=== PATIENT | male | born 1935 | race Caucasian/White ===

== ENCOUNTER → 2023-01-02 | Outpatient (CLI) | payer MEDICARE, OTHER, SELFPAY ==
[2023-01-02 16:51] LABS: Absolute Lymphocyte Count 1.96 X10^3/uL (0.83-4.51); Basophil# 0.01 X10^3/uL; Basophil% 0.2 % (0-1); Eosinophil# 0.07 X10^3/uL; Eosinophils% 1.1 % (0-5); Hematocrit 37.3 % (40-54); Hemoglobin 11.6 g/dL (13.0-16.5); Lymphocyte # 1.96 X10^3/ul (0.83-4.51); Lymphocyte % 29.9 % (19-41); Mean Corp Hgb Conc 31.1 g/dL (32-36); Mean Corpuscular Hgb 27.4 pg (27.0-32.0); Mean Platelet Vol. 10.2 fl (6.2-12.0); Monocyte# 0.52 X10^3/uL; Monocyte% 7.9 % (0-10); NRBC Flagged by Analyzer 0 % (0-5); Neutrophil # 3.97 X10^3/uL (2.7-7.7); Neutrophil % 60.6 % (47-70); Platelet Count 286 K/mm3 (150-450); RBC Distribution Width CV 16.2 % (11.6-14.6); RBC Distribution Width SD 52.2 fl (35.1-43.9); Red Blood Count 4.24 M/mm3 (4.6-6.2); White Blood Count 6.6 K/mm3 (4.4-11.0)
[2023-01-02 17:43] LABS: ALB/GLOB Ratio 0.9 RATIO (0.9-2.4); AST(SGOT) 18 U/L (15-37); Alanine Aminotransfer ALT/SGPT 32 U/L (16-61); Albumin, Serum 3.4 g/dL (3.2-5.0); Alkaline Phosphatase 98 U/L (45-117); Anion Gap 8 (5-15); BUN 23 mg/dL (7-18); Calcium,Total 8.4 mg/dL (8.5-10.1); Chloride 109 mmol/L (98-107); EST Glomerular Filtration Rate 75 mL/min (>60); Est Glom Filt Rate - Afr Amer 91 mL/min (>60); Globulin 3.6 g/dL (2.2-4.2); Glucose 111 mg/dL (74-106); Potassium 3.7 mmol/L (3.5-5.1); Sodium Level 143 mmol/L (136-145)
[2023-01-02 18:38] LABS: Hepatitis C Antibody Non-Reactive (Nonreactive)
== END | disposition home or self-care (01) ==
LOC: POLAB3 16:09
PROVIDERS: Visit Provider Family Medicine Geriatric Medicine
DX: E78.5 Hyperlipidemia, unspecified (principal); E55.9 Vitamin D deficiency, unspecified; Z13.89 Encounter for screening for other disorder
CPT/HCPCS: 36415; 80053; 82306; 84443; 85025; 86803; 87086; 87088; 87186

== ENCOUNTER → 2023-01-06 | Outpatient (CLI) | payer MEDICARE, SELFPAY ==
--- NOTE | 2023-01-06 12:15 | RAD_ITS ---
STUDY: X-RAY - ABDOMEN/PELVIS REASON FOR EXAM: Male, 87 years old. Left lower quadrant abdominal pain. TECHNIQUE: AP supine and upright views of the abdomen and pelvis. COMPARISON: None. FINDINGS: There is an abundance of fecal material throughout the colon. Calcified gallstones. Evidence of prior right inguinal hernia repair. There are degenerative changes of the visualized lumbar spine. RAD/Abd Inc Decub and/or Erect IMPRESSION: Large amount of fecal material is seen in the colon. Calcified gallstones are seen in the right upper quadrant. Electronically Signed: Sav Morillo MD at 15:14 EST ,
== END | disposition home or self-care (01) ==
PROVIDERS: PCP Family Medicine Geriatric Medicine; Visit Provider Family Medicine Geriatric Medicine
DX: R10.9 Unspecified abdominal pain (principal)
CPT/HCPCS: 74019

== ENCOUNTER → 2023-01-16 | Outpatient (CLI) | payer MEDICARE, SELFPAY ==
--- NOTE | 2023-01-16 07:45 | US_ITS ---
STUDY: ABDOMINAL ULTRASOUND - RIGHT UPPER QUADRANT REASON FOR VISIT: Male, 87 years old ABD PAIN TECHNIQUE: Ultrasound evaluation of the right upper quadrant was performed with real-time and static bolanos-scale imaging. TECHNICAL QUALITY: Adequate. COMPARISON: None. FINDINGS: Liver: The liver measures 18.8 cm. There is diffusely increased echogenicity of the liver. The bile ducts are within normal limits. There is hepatic color flow. The direction of portal flow is hepatopetal. There is no demonstrated mass lesion. Gallbladder: Normal distended gallbladder. The gallbladder wall measures approximately (3.2 mm. There is a mildly equivocal positive sonographic Portillo''s sign. There is no pericholecystic fluid. There are multiple gallstones. Common Bile Duct (C.B.D.): The common bile duct measures 5.5 mm. Pancreas: Normal size of the head, body and tail of the pancreas. There is diffusely increased echogenicity of the pancreas. There is no demonstrated pancreatic mass or cyst. Right Kidney: Normal size of the right kidney. The right kidney measures 10.8 x 6.1 x 6.3 cm. Normal renal cortex. The right cortex measures 1.4 cm. There is no demonstrated renal mass or cyst. There is no right hydronephrosis. US/Abdomen Limited IMPRESSION: Enlarged fatty infiltrated liver.. Mildly thick-walled gallbladder with cholelithiasis and equivocally positive Portillo''s possibly representing acute cholecystitis. HIDA scan would be helpful for further evaluation sign. Electronically Signed: Donnie Dyson MD at 22:58 EST ,
== END | disposition home or self-care (01) ==
PROVIDERS: PCP Family Medicine Geriatric Medicine; Visit Provider Family Medicine Geriatric Medicine
DX: R10.9 Unspecified abdominal pain (principal)
CPT/HCPCS: 76705

== ENCOUNTER 2023-06-29 11:11 | Emergency (ER) | payer MEDICARE, SELFPAY ==
[2023-06-29 11:13] VITALS: BP 182/100; PULSE 87; RESP 20; TEMP 36.6; O2SAT 94; BMI 31.4
[2023-06-29 11:16] VITALS: BMI 31.4
--- NOTE | 2023-06-29 11:16 | CT_ITS ---
HISTORY: Does not feel right, markedly elevated blood press. TECHNIQUE: Multiple axial images were obtained of the head without intravenous contrast. A radiation dose optimization technique was used for this scan. 268 images. COMPARISON: None. FINDINGS: BRAIN PARENCHYMA: Multiple foci and zones of low attenuation in the bilateral cerebral white matter compatible with chronic small vessel ischemic gliosis. No acute intra-axial hemorrhage identified. CSF SPACES: Generalized volume loss. No midline shift or other significant mass effect. No acute extra-axial hemorrhage seen. OTHER: Intact calvarium. No significant air fluid levels in the paranasal sinuses or mastoid air cells. Bilateral lens resections. CT/Brain/Head without Contrast IMPRESSION: No acute intracranial process identified. Chronic involutional and white matter changes. Electronically Signed: Pau Mccormack MD at 12:15 EDT ,
--- NOTE | 2023-06-29 11:29 | EX.ED.DYSGE1 ---
HPI History of Present Illness Chief Complaint: Neuro S/Sx Detail of Chief Complaint: Does not feel right. He is unable to be more specific. Informant: patient and family (Daughter brought him to the emergency department. She was concerned because his blood pressure was elevated.) Onset/Context/Timing Onset: Hours Context: Sudden Onset Timing: Continuous Quality: Sense of unwellness, elevated blood pressure and dizziness. Location: In the restroom Current Severity: Gone Maximum Severity: Moderate Worsened by: Nothing Relieved by: Nothing Associated Symptoms Associated Symptoms: None Narrative Narrative: Patient is a 87-year-old male with history of coronary disease, hyperlipidemia, essential hypertension, hypothyroidism, paroxysmal atrial fibrillation and pacemaker who presents because he does not feel well. This started 1 hour prior to presentation. He apparently was standing. He also had difficulty answering question because he was in the restroom and states he does not know. When asked if he had a headache he stated not now. Daughter states he never voiced he had a headache. She feels that his voice is not as pronounced. His voice is soft and not forceful. He denies double vision, blurred vision or loss of vision. He denies ringing's ears or decreased hearing. He does have hearing aids. He denies rhinorrhea, congestion or postnasal drainage. He denies sore throat. He denies trouble with speech or swallowing. He denies cardiac or respiratory symptoms. He denies nausea, vomit or diarrhea. Denies black or maroon stool. He denies dysuria, frequency, urgency or hematuria. He denies paresthesia or anesthesia upper or lower extremity. He denies weakness in his arms or legs but reports generalized weakness. He states his blood pressure is normally is 12/17/1928 systolic. He denies back pain. Prior similar symptoms: No Recent Illness/Hospitalization: No PFSH PFS Medical History Atherosclerosis of coronary artery of [place] heart without angina pectoris Depression Essential hypertension Gastric ulcer Glaucoma Hyperlipidemia Hypothyroidism Insomnia MGUS (monoclonal gammopathy of unknown significance) Parkinson's disease Paroxysmal atrial fibrillation Polyneuropathy Vitamin D deficiency Home Medications brimonidine 0.15 % eye drops 1 drp ophthalmic (eye) TID 03/07/23 [History Last Taken Unknown] carbidopa 25 mg-levodopa 100 mg tablet (Sinemet) 1 tab PO TID 03/07/23 [History Last Taken Unknown] latanoprost 0.005 % eye drops 1 drp ophthalmic (eye) DAILY 03/07/23 [History Last Taken Unknown] mirtazapine 7.5 mg tablet 7.5 mg PO QHS 03/07/23 [History Last Taken Unknown] pantoprazole 40 mg tablet,delayed release 40 mg PO BID 03/07/23 [History Last Taken Unknown] levothyroxine 88 mcg tablet 88 mcg PO DAILY 04/05/23 [History Last Taken Unknown] sotalol 80 mg tablet 80 mg PO BID #180 tabs 06/07/23 [Rx Last Taken Unknown] rivaroxaban 20 mg tablet (Xarelto) 20 mg PO QPM #30 tabs 06/14/23 [Rx Last Taken Unknown] Allergy/AdvReac Type Severity Reaction Status Date / Time No Known Allergies Allergy Verified 06/29/23 11:17 Family History Mother Cervical cancer Brother , 50 Aortic dissection Surgical History History of bilateral cataract extraction History of coronary artery stent placement (~2008) History of hernia repair History of transurethral resection of prostate Presence of permanent cardiac pacemaker (03/31/16) Skin cancer Social History Smoking Status: Former smoker how long ago did patient quit smokin years ago alcohol intake: never substance use type: does not use caffeine: No ROS ROS ED Constitutional Constitutional ED: Denies chills, fever(s), subjective, sweats or weight loss Eyes Eyes: Denies blurry vision, change in vision or diplopia ENT ENT ED: Denies ear pain, rhinorrhea or sore throat Cardiovascular Cardiovascular: Denies chest pain, orthopnea, palpitations, paroxysmal nocturnal dyspnea or racing heartbeat Respiratory/Chest Respiratory/Chest: Denies cough, dyspnea, dyspnea on exertion, orthopnea or paroxysmal nocturnal dyspnea Gastrointestinal Gastrointestinal: Denies abdominal pain, nausea or vomiting Genitourinary Genitourinary ED: Denies dysuria, hematuria or urinary frequency Musculoskeletal Musculoskeletal: Denies arthralgias, back pain, myalgias or neck pain Integumentary Denies abscess, Abrasions or rash Neurologic Neurologic: Reports weakness; Denies headache(s) or paresthesias Psychiatric Psychiatric: Denies anxiety Hematologic/Lymphatic Hematologic/Lymphatic: Reports systems reviewed and no addt'l complaints, except as documented and other Details: Patient is on Xarelto for atrial fibrillation. EXAM Physical Exam Const Vital Signs: 06/29/23 11:13 06/29/23 13:06 06/29/23 13:44 Temperature 97.8 F Temperature Source Temporal Pulse Rate 87 70 70 Respiratory Rate 20 H 17 Blood Pressure 182/100 H 188/80 H 150/82 H Blood Pressure Mean 127 116 104 Pulse Ox 94 97 Oxygen Delivery Method Room Air Room Air Positive well nourished and well developed General Appearance ED: well developed and NAD; Negative for cyanotic, diaphoretic or pallor HEENT Reports moist mucous membranes HEENT Narrative: Ears are normal. Hearing aids noted. Nares patent. Posterior pharynx out erythema or exudate. Neck is supple. Eyes PERRL and EOMs intact bilaterally Eyes Narrative: Status post cataract surgery. General Eye ED: Negative for pale conjunctiva or scleral icterus Neck no lymphadenopathy, supple and no JVD Chest Wall inspection of chest normal and palpation of chest normal Resp normal respiratory effort and clear to auscultation bilaterally Cardio regular rate, regular rhythm, S1 normal heart sound and S2 normal heart sound GI normal to inspection, nondistended, normoactive bowel sounds, non-tender, non-distended and no masses; Negative for hepatosplenomegaly Back/Spine no CVA tenderness Cervical Spine: Negative for cervical spine tenderness Thoracic Spine / Upper Back: Negative for thoracic spinal tenderness Lumbar Spine / Lower Back: Negative for lumbar spinal tenderness Extremity normal to inspection General Extremety ED: Yes edema; Negative for tenderness General Extremity: edema Neuro oriented x3, CN's II-XII intact bilaterally and no sensory deficits noted Sensorium / Orientation: alert Motor Exam: strength 5/5 throughout Psych Psych Narrative: Slow psychomotor skills. Mood & Affect: depressed Skin no rashes or lesions noted, no wounds and skin turgor normal General Skin Exam: Negative for jaundice or pallor MDM MDM MDM Narrative Medical decision making narrative: With very vague symptoms. Because he may have had a headache with elevated blood pressure obtain a CAT scan of the head to look for intracranial bleed. His neuro exam is nonfocal. NIH is 0 patient does have history of hypothyroidism 1 would not expect his symptoms to start abruptly. CBC was obtained to assess H&H and rule out anemia. BMP to assess electrolytes and renal function. Will monitor blood pressure. History & Record Review Additional record(s) reviewed:: Prior ED visit and Prior labs Lab Data Attestation: I reviewed the patient's lab results. Lab results narrative: CBC is unremarkable and unchanged from baseline. Basic metabolic panel is unremarkable and essentially impaired Labs: Laboratory Results - last 24 hr 06/29/23 06/29/23 11:14 11:20 WBC 5.9 RBC 4.98 Hgb 13.6 Hct 42.7 MCV 85.7 MCH 27.3 MCHC 31.9 L RDW Std Deviation 51.1 H RDW Coeff of Jefry 16.4 H Plt Count 244 MPV 10.5 Immature Gran % (Auto) 0.300 Neut % (Auto) 64.5 Lymph % (Auto) 28.1 [place] % (Auto) 5.6 Eos % (Auto) 1.0 Baso % (Auto) 0.5 Absolute Neuts (auto) 3.8 Absolute Lymphs (auto) 1.66 Nucleated RBC % 0 Sodium 139 Potassium 3.7 Chloride 109 H Carbon Dioxide 26.0 Anion Gap 4 L BUN 16 Creatinine 1.05 Estim Creat Clear Calc 55.43 Est GFR (MDRD) Af Amer 86 Est GFR (MDRD) Non-Af 71 BUN/Creatinine Ratio 15.2 Glucose 108 H Calcium 8.5 POC Glucose 117 H Radiography Diagnostic Testing: Clinical Impression(s) from Imaging Studies Brain CT 06/29/23 11:16 IMPRESSION: No acute intracranial process identified. Chronic involutional and white matter changes. Electronically Signed: Pau Mccormack MD at 12:15 EDT , Treatment and Re-Evaluation :: Patient was reassessed at 1346. Patient's blood pressure has improved. He states his symptoms have improved. Patient and daughter were told the cause of this is uncertain. He does feel better but still feels slightly weak . Discharge Plan Triage Chief Complaint: Neuro S/Sx ED Provider: Richard Moran Dx/Rx/DC Orders Clinical Impression: Accelerated essential hypertension, Hyperlipidemia, Atherosclerosis of coronary artery of [place] heart without angina pectoris, Generalized weakness, Anticoagulant long-term use Instructions: ED High Blood Pressure Hypertension Prescriptions: No Action brimonidine 0.15 % drops 1 drp ophthalmic (eye) TID Rx Instructions: administer approximately 8 hours apart latanoprost 0.005 % drops 1 drp ophthalmic (eye) DAILY carbidopa-levodopa [Sinemet] 25-100 mg tablet 1 tab PO TID mirtazapine 7.5 mg tablet 7.5 mg PO QHS pantoprazole 40 mg tablet,delayed release (DR/EC) 40 mg PO BID levothyroxine 88 mcg tablet 88 mcg PO DAILY Patient Comments: take 1 tablet by mouth once daily sotalol 80 mg tablet 80 mg PO BID Qty: 180 3RF Xarelto 20 mg tablet 20 mg PO QPM Qty: 30 11RF Rx Instructions: must administer with evening meal Primary Care Provider: William Cespedes Chi Referrals: William Cespedes Chi, MD [Primary Care Provider] - 1-2 Weeks Activity Restrictions/Additional Instructions: Contact Dr. Cespedes's office to have your blood pressure reassessed within the next 1 to 2 weeks. Disposition Disposition: Home, Self Care
[2023-06-29 11:33] LABS: Bedside Glucose 117 mg/dL (74-106)
[2023-06-29 11:50] LABS: Absolute Lymphocyte Count 1.66 X10^3/uL (0.83-4.51); Absolute Neutrophil Count 3.8 X10^3/uL (2.0-7.7); Basophil# 0.03 X10^3/uL; Basophil% 0.5 % (0-1); Eosinophil# 0.06 X10^3/uL; Hematocrit 42.7 % (40-54); Hemoglobin 13.6 g/dL (13.0-16.5); Lymphocyte # 1.66 X10^3/ul (0.83-4.51); Lymphocyte % 28.1 % (19-41); Mean Corp Hgb Conc 31.9 g/dL (32-36); Mean Corpuscular Hgb 27.3 pg (27.0-32.0); Mean Corpuscular Volume 85.7 fL (80-94); Mean Platelet Vol. 10.5 fl (6.2-12.0); Monocyte# 0.33 X10^3/uL; Monocyte% 5.6 % (0-10); NRBC Flagged by Analyzer 0 % (0-5); Neutrophil % 64.5 % (47-70); Platelet Count 244 K/mm3 (150-450); RBC Distribution Width CV 16.4 % (11.6-14.6); RBC Distribution Width SD 51.1 fl (35.1-43.9); Red Blood Count 4.98 M/mm3 (4.6-6.2); White Blood Count 5.9 K/mm3 (4.4-11.0)
[2023-06-29 11:59] LABS: Anion Gap 4 (5-15); BUN 16 mg/dL (7-18); BUN/Creat Ratio 15.2 RATIO (10-20); Calcium,Total 8.5 mg/dL (8.5-10.1); Chloride 109 mmol/L (98-107); Creatinine, Serum 1.05 mg/dL (0.70-1.30); EST Glomerular Filtration Rate 71 mL/min (>60); Est Glom Filt Rate - Afr Amer 86 mL/min (>60); Estimated Creatinine Clearance 55.43 ml/min; Glucose 108 mg/dL (74-106); Potassium 3.7 mmol/L (3.5-5.1); Sodium Level 139 mmol/L (136-145)
[2023-06-29 13:06] VITALS: BP 188/80; PULSE 70; RESP 17; O2SAT 97
--- NOTE | 2023-06-29 13:32 | CM.ED ---
Social Work SW met with patient and patient's daughter and introduced self and role as [facility] SW. Patient agreeable to speak to SW with his daughter present. SW inquired about AD documents. Patient reports having POA documents and possibly his LW but unable to recall if it is health care POA or general. SW encouraged patient to review and provide a copy to be added to his chart. SW also reviewed options for assistance if he does not have those documents completed. Patient voiced understanding and has no other needs at this time. SW remains available if needs arise. Cinthya Treadwell [employer]ING [employer]ING [employer], [place]
[2023-06-29 13:44] VITALS: BP 150/82; PULSE 70
[2023-06-29 14:26] VITALS: BP 153/89
== END 2023-06-29 14:27 | disposition home or self-care (01) ==
PROVIDERS: Emergency Provider Emergency Medicine; PCP Family Medicine Geriatric Medicine; Visit Provider Emergency Medicine
DX: I10 Essential (primary) hypertension (principal); G20 Parkinson's disease; I48.0 Paroxysmal atrial fibrillation; I25.10 Atherosclerotic heart disease of native coronary artery without angina pectoris; E78.5 Hyperlipidemia, unspecified; R53.1 Weakness; E03.9 Hypothyroidism, unspecified; Z79.01 Long term (current) use of anticoagulants; Z79.890 Hormone replacement therapy; Z79.899 Other long term (current) drug therapy; Z95.0 Presence of cardiac pacemaker; Z87.891 Personal history of nicotine dependence
CPT/HCPCS: 70450; 80048; 82962; 85025; 99283

== ENCOUNTER → 2023-06-30 | Outpatient (CLI) | payer MEDICARE, SELFPAY ==
[2023-06-30 12:42] LABS: Absolute Lymphocyte Count 1.39 X10^3/uL (0.83-4.51); Absolute Neutrophil Count 3.5 X10^3/uL (2.0-7.7); Basophil# 0.03 X10^3/uL; Basophil% 0.6 % (0-1); Eosinophil# 0.07 X10^3/uL; Eosinophils% 1.3 % (0-5); Hematocrit 41.2 % (40-54); Hemoglobin 13.6 g/dL (13.0-16.5); Lymphocyte # 1.39 X10^3/ul (0.83-4.51); Lymphocyte % 26.2 % (19-41); Mean Corpuscular Hgb 27.8 pg (27.0-32.0); Mean Corpuscular Volume 84.1 fL (80-94); Mean Platelet Vol. 10.2 fl (6.2-12.0); Monocyte# 0.34 X10^3/uL; Monocyte% 6.4 % (0-10); NRBC Flagged by Analyzer 0 % (0-5); Neutrophil # 3.47 X10^3/uL (2.7-7.7); Neutrophil % 65.3 % (47-70); Platelet Count 225 K/mm3 (150-450); RBC Distribution Width CV 16.2 % (11.6-14.6); RBC Distribution Width SD 50.3 fl (35.1-43.9); White Blood Count 5.3 K/mm3 (4.4-11.0)
[2023-06-30 13:03] LABS: ALB/GLOB Ratio 0.9 RATIO (0.9-2.4); AST(SGOT) 19 U/L (15-37); Alanine Aminotransfer ALT/SGPT 11 U/L (16-61); Albumin, Serum 3.2 g/dL (3.2-5.0); Alkaline Phosphatase 63 U/L (45-117); Anion Gap 5 (5-15); BUN 16 mg/dL (7-18); BUN/Creat Ratio 15.2 RATIO (10-20); Calcium,Total 8.3 mg/dL (8.5-10.1); Chloride 108 mmol/L (98-107); Creatinine, Serum 1.05 mg/dL (0.70-1.30); EST Glomerular Filtration Rate 71 mL/min (>60); Est Glom Filt Rate - Afr Amer 86 mL/min (>60); Globulin 3.5 g/dL (2.2-4.2); Glucose 133 mg/dL (74-106); Potassium 3.6 mmol/L (3.5-5.1); Protein, Total 6.7 g/dL (6.4-8.2); Sodium Level 141 mmol/L (136-145); Thyroid Stim Hormone (TSH) 2.09 uIU/mL (0.358-3.74)
[2023-06-30 13:11] LABS: Vitamin D,25 Hydroxy 22.2 ng/mL
== END | disposition home or self-care (01) ==
PROVIDERS: PCP Family Medicine Geriatric Medicine; Visit Provider Family Medicine Geriatric Medicine
DX: I10 Essential (primary) hypertension (principal); E55.9 Vitamin D deficiency, unspecified
CPT/HCPCS: 36415; 80053; 82306; 84443; 85025

== ENCOUNTER → 2023-10-12 | Outpatient (CLI) | payer MEDICARE, SELFPAY ==
--- NOTE | 2023-10-12 11:10 | RAD_ITS ---
STUDY: X-RAY - LUMBAR SPINE REASON FOR EXAM: Male, 87 years old. LOW BACK PAIN TECHNIQUE: 4 view(s) of the lumbar spine were obtained. COMPARISON: None FINDINGS: Normal lumbar lordosis. Moderate dextroconvex scoliosis. There is a normal alignment of the vertebrae. Multiple gallstones. There is multilevel endplate spondylosis of the lumbar vertebrae. Normal disc space heights. The soft tissue structures are unremarkable. RAD/L/S Spine Min 4 Views IMPRESSION: Moderate dextroconvex scoliosis and spondylosis. Cholelithiasis. Electronically Signed: Herbie Foley MD at 0:07 EST ,
== END | disposition home or self-care (01) ==
LOC: RAD 11:08
PROVIDERS: PCP Family Medicine Geriatric Medicine; Referring Provider Family Medicine Geriatric Medicine; Visit Provider Family Medicine Geriatric Medicine
DX: M54.50 Low back pain, unspecified (principal)
CPT/HCPCS: 72110

== ENCOUNTER → 2023-10-26 | Outpatient (CLI) | payer MEDICARE, SELFPAY ==
--- NOTE | 2023-10-26 15:51 | RAD_ITS ---
INDICATION: R HIP PAIN EXAMINATION/TECHNIQUE: X-RAY - XR Hip Unilateral with Pelvis when performed; 2-3 Views COMPARISON: FINDINGS: No acute fracture or dislocation. No destructive bone changes. Joint spaces are well-maintained. Normal alignment. Soft tissues are unremarkable. No radiopaque foreign body or soft tissue gas. RAD/HIP, UNI W/ Pelvis 2-3 Views IMPRESSION: No evidence of displaced pelvic or hip fracture. Electronically Signed: Philomena Darby MD at 23:54 EST Reading Location ID and State: [id number] / Tel , Service support ,
[2023-10-26 16:17] LABS: Absolute Lymphocyte Count 1.43 X10^3/uL (0.83-4.51); Absolute Neutrophil Count 7.2 X10^3/uL (2.0-7.7); Basophil# 0.06 X10^3/uL; Basophil% 0.6 % (0-1); Eosinophil# 0.04 X10^3/uL; Eosinophils% 0.4 % (0-5); Hematocrit 39.7 % (40-54); Hemoglobin 12.5 g/dL (13.0-16.5); Lymphocyte # 1.43 X10^3/ul (0.83-4.51); Lymphocyte % 14.8 % (19-41); Mean Corp Hgb Conc 31.5 g/dL (32-36); Mean Corpuscular Hgb 28.3 pg (27.0-32.0); Mean Corpuscular Volume 89.8 fL (80-94); Mean Platelet Vol. 10.3 fl (6.2-12.0); Monocyte% 8.3 % (0-10); NRBC Flagged by Analyzer 0 % (0-5); Neutrophil # 7.16 X10^3/uL (2.7-7.7); Neutrophil % 74.4 % (47-70); Platelet Count 231 K/mm3 (150-450); RBC Distribution Width CV 15.4 % (11.6-14.6); Red Blood Count 4.42 M/mm3 (4.6-6.2); White Blood Count 9.6 K/mm3 (4.4-11.0)
[2023-10-26 18:10] LABS: ALB/GLOB Ratio 0.9 RATIO (0.9-2.4); AST(SGOT) 20 U/L (15-37); Alanine Aminotransfer ALT/SGPT 9 U/L (16-61); Albumin, Serum 3.4 g/dL (3.2-5.0); Alkaline Phosphatase 86 U/L (45-117); Anion Gap 6 (5-15); BUN 19 mg/dL (7-18); BUN/Creat Ratio 19.4 RATIO (10-20); Calcium,Total 8.3 mg/dL (8.5-10.1); Chloride 101 mmol/L (98-107); Creatinine, Serum 0.98 mg/dL (0.70-1.30); EST Glomerular Filtration Rate 77 mL/min (>60); Est Glom Filt Rate - Afr Amer 93 mL/min (>60); Globulin 3.7 g/dL (2.2-4.2); Glucose 109 mg/dL (74-106); Potassium 3.8 mmol/L (3.5-5.1); Protein, Total 7.1 g/dL (6.4-8.2); Sodium Level 137 mmol/L (136-145)
== END | disposition home or self-care (01) ==
PROVIDERS: PCP Family Medicine Geriatric Medicine; Referring Provider Family Medicine Geriatric Medicine; Visit Provider Family Medicine Geriatric Medicine
DX: M25.551 Pain in right hip (principal); I10 Essential (primary) hypertension
CPT/HCPCS: 36415; 73502; 80053; 84443; 85025

== ENCOUNTER 2023-10-31 15:57 | Inpatient (IN) | payer MEDICARE, SELFPAY ==
[2023-10-31] VITALS (9 sets, daily range): BP systolic 154–188; BP diastolic 74–96; PULSE 70–86; RESP 16–30; TEMP 36.7–36.8; O2SAT 90–98; BMI 29.5
--- NOTE | 2023-10-31 16:53 | EX.ED.DYSGE1 ---
HPI History of Present Illness Chief Complaint: General Illness Narrative Narrative: 87-year-old male presenting with nausea and decreased p.o. intake x2 to 3 days. Patient states he feels only nausea. Does not abdominal pain. He states he is not having diarrhea. He has not actually vomited. No fever, chills, myalgias. Patient states that he started to have a cough today and feels generally weak. 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 He is referred to pain management for this tomorrow. Patient states he feels weak because he has not eaten for a few days. [facility] Medical History Atherosclerosis of coronary artery of [place] heart without angina pectoris Depression Essential hypertension Gastric ulcer Glaucoma Hyperlipidemia Hypothyroidism Insomnia MGUS (monoclonal gammopathy of unknown significance) Parkinson's disease Paroxysmal atrial fibrillation Polyneuropathy Vitamin D deficiency Home Medications brimonidine 0.15 % eye drops 1 drp ophthalmic (eye) TID 03/07/23 [History Last Taken 10/31/23] carbidopa 25 mg-levodopa 100 mg tablet (Sinemet) 1 tab PO TID 03/07/23 [History Last Taken 10/31/23] latanoprost 0.005 % eye drops 1 drp ophthalmic (eye) DAILY 03/07/23 [History Last Taken 10/30/23] mirtazapine 7.5 mg tablet 15 mg PO QHS 03/07/23 [History Last Taken 10/30/23] pantoprazole 40 mg tablet,delayed release 40 mg PO BID 03/07/23 [History Last Taken 10/31/23] levothyroxine 88 mcg tablet 88 mcg PO DAILY 04/05/23 [History Last Taken 10/31/23] sotalol 80 mg tablet 80 mg PO BID #180 tabs 06/07/23 [Rx Last Taken 10/31/23] rivaroxaban 20 mg tablet (Xarelto) 20 mg PO QPM #30 tabs 06/14/23 [Rx Last Taken 10/30/23] fluoxetine 10 mg tablet 10 mg PO DAILY 10/31/23 [History Last Taken 10/31/23] lisinopril 20 mg tablet 40 mg PO QHS 10/31/23 [History Last Taken 10/30/23] Allergy/AdvReac Type Severity Reaction Status Date / Time No Known Allergies Allergy Verified 10/31/23 15:58 Family History Mother Cervical cancer Brother , 50 Aortic dissection Surgical History History of bilateral cataract extraction History of coronary artery stent placement (~2008) History of hernia repair History of transurethral resection of prostate Presence of permanent cardiac pacemaker (03/31/16) Skin cancer Social History Smoking Status: Former smoker how long ago did patient quit smokin years ago alcohol intake: never substance use type: does not use caffeine: No ROS ROS ED Constitutional Constitutional ED: Denies chills, fever(s) or sweats Eyes Eyes: Denies blurry vision or change in vision ENT ENT ED: Denies ear pain or sore throat Cardiovascular Cardiovascular: Denies chest pain, palpitations or racing heartbeat Respiratory/Chest Respiratory/Chest: Reports cough; Denies dyspnea or sputum Gastrointestinal Gastrointestinal: Reports nausea; Denies abdominal pain, constipation, diarrhea or vomiting Genitourinary Genitourinary ED: Denies dysuria, hematuria or urinary frequency Musculoskeletal Musculoskeletal: Denies arthralgias, myalgias or neck pain Integumentary Denies abscess, Abrasions or rash Neurologic Neurologic: Denies headache(s), paresthesias or weakness Psychiatric Psychiatric: Denies anxiety, depression, suicidal ideation or suicidal thoughts Endocrine Endocrinology: Denies polydipsia or polyuria EXAM Physical Exam Const Vital Signs: 10/31/23 15:58 10/31/23 16:28 10/31/23 18:00 Temperature 98.1 F Temperature Source Temporal Pulse Rate 86 85 Respiratory Rate 18 16 Respiratory Effort Short of Breath Respiratory Pattern Tachypnea Blood Pressure 171/74 H 188/96 H Blood Pressure Mean 106 126 Pulse Ox 90 98 Oxygen Delivery Method Room Air Nasal Cannula Oxygen Flow Rate (L/min) 2 10/31/23 18:00 10/31/23 19:00 Temperature 98.2 F Temperature Source Oral Pulse Rate 85 85 Respiratory Rate 16 16 Respiratory Effort Respiratory Pattern Blood Pressure 188/96 H 188/96 H Blood Pressure Mean 126 126 Pulse Ox 98 98 Oxygen Delivery Method Nasal Cannula Oxygen Flow Rate (L/min) 2 Positive well nourished General Appearance ED: NAD HEENT Reports moist mucous membranes Eyes PERRL and EOMs intact bilaterally General Eye ED: Negative for pale conjunctiva Neck no lymphadenopathy Chest Wall inspection of chest normal Resp normal respiratory effort Auscultation: diminished lung sounds bilateral lower Cardio regular rate and regular rhythm GI normal to inspection, nondistended, normoactive bowel sounds Neuro oriented x3 and CN's II-XII intact bilaterally Sensorium / Orientation: alert Motor Exam: strength 5/5 throughout Psych mental status grossly normal Skin no rashes or lesions noted and no wounds MDM MDM MDM Narrative Medical decision making narrative: Patient presenting with generalized weakness. Differential includes ACS, CHF, pneumonia, dehydration, electrolyte abnormalities, COVID, influenza. EKG obtained to assess for ischemia and dysrhythmia. High-sensitivity troponin assess for cardiac ischemia. CBC to assess white blood cell count, hemoglobin, platelets. BMP to assess renal function, electrolytes, glucose. Urinalysis to assess for UTI. COVID influenza test will be obtained as well. Patient given IV fluids and Zofran. Chest x-ray to rule out pneumonia. CBC shows normal white blood cell count 8.1. Hemoglobin 13.1. Platelets are 186. Renal function and electrolytes within normal limits. LFTs are normal. BNP slightly elevated at 205.2. Lipase normal at 30. Chest x-ray my interpretation shows no acute process. The radiologist interprets this and agrees. COVID and influenza were negative. Patient ambulated on pulse ox and dropped to 86% on room air. Patient 90% sitting in bed without oxygen. He is placed on 2 L nasal cannula maintaining sats of 93%. Discussed with hospitalist for admission who recommends a viral respiratory panel which is sent. Obtained a CT chest without contrast which shows concern for right lower lobe infiltrate and nonspecific upper lobe reticular nodular densities. There is also left lower lobe infiltrate versus CHF. Patient will be started on antibiotics before going to medical floor. Patient discussed with hospice for admission. Impression: 1. Community-acquired pneumonia 2. Hypoxic respiratory failure 3. Nausea Lab Data Labs: Laboratory Results - last 24 hr 10/31/23 17:20 WBC 8.1 RBC 4.57 L Hgb 13.1 Hct 41.0 MCV 89.7 MCH 28.7 MCHC 32.0 RDW Std Deviation 49.6 H RDW Coeff of Jefry 15.2 H Plt Count 186 MPV 10.6 Immature Gran % (Auto) 3.300 H Neut % (Auto) 68.8 Lymph % (Auto) 18.1 L [place] % (Auto) 8.8 Eos % (Auto) 0.4 Baso % (Auto) 0.6 Absolute Neuts (auto) 5.6 Absolute Lymphs (auto) 1.46 Nucleated RBC % 0 Sodium 136 Potassium 3.5 Chloride 102 Carbon Dioxide 29.0 Anion Gap 5 BUN 15 Creatinine 0.98 Est GFR (MDRD) Af Amer 93 Est GFR (MDRD) Non-Af 77 BUN/Creatinine Ratio 15.3 Glucose 101 Calcium 8.4 L Total Bilirubin 0.80 AST 18 ALT < 6 L Alkaline Phosphatase 86 Troponin I High Sens 19 B-Natriuretic Peptide 205.2 H Total Protein 6.7 Albumin 2.9 L Globulin 3.8 Albumin/Globulin Ratio 0.8 L Lipase 30 Radiography Diagnostic Testing: Clinical Impression(s) from Imaging Studies Chest X-Ray 10/31/23 17:30 IMPRESSION: Diminished inspiratory effort and mild bibasilar atelectasis Electronically Signed: Donnie Dyson MD at 17:44 EST , Chest CT 10/31/23 19:06 IMPRESSION: Nonspecific reticulonodular interstitial thickening more pronounced in the upper lobes. Right lower lobe atelectasis or infiltrate. Small left pleural effusion and left lower lobe atelectasis or infiltrate. Electronically Signed: Donnie Dyson MD at 20:37 EST , Discharge Plan Disposition Disposition: Acute Care Hospital [facility] Discharge Date/Time: 10/31/23 20:07
--- NOTE | 2023-10-31 16:54 | NURSING ---
NO OLD EKGS
[2023-10-31] MEDS: 0.9% Normal Saline (1000mL) 1,000 ML 1000 ML IV (17:18)
[2023-10-31] MEDS: Ondansetron 4 MG/2 ML Vial IV (17:19)
--- NOTE | 2023-10-31 17:30 | RAD_ITS ---
STUDY: X-RAY CHEST REASON FOR EXAM: Male, 87 years old. cough TECHNIQUE: AP portable COMPARISON: None. FINDINGS: There is diminished inspiratory effort and mild bibasilar atelectasis or infiltrate.. There is no demonstrated pleural abnormality. Pacer noted on the left with electrodes in satisfactory position Normal size heart. Normal mediastinum and zeny. Normal visualized pulmonary arteries. Normal visualized aortic arch and descending thoracic aorta. Normal visualized thoracic spine. Normal visualized ribs, clavicles, and shoulders. Multiple calcified gallstones are noted within the right upper quadrant of the abdomen.. RAD/Chest 1 View (Portable) IMPRESSION: Diminished inspiratory effort and mild bibasilar atelectasis Electronically Signed: Donnie Dyson MD at 17:44 EST ,
[2023-10-31 17:46] LABS: Absolute Lymphocyte Count 1.46 X10^3/uL (0.83-4.51); Absolute Neutrophil Count 5.6 X10^3/uL (2.0-7.7); Basophil# 0.05 X10^3/uL; Basophil% 0.6 % (0-1); Eosinophil# 0.03 X10^3/uL; Eosinophils% 0.4 % (0-5); Hemoglobin 13.1 g/dL (13.0-16.5); Lymphocyte # 1.46 X10^3/ul (0.83-4.51); Lymphocyte % 18.1 % (19-41); Mean Corpuscular Hgb 28.7 pg (27.0-32.0); Mean Corpuscular Volume 89.7 fL (80-94); Mean Platelet Vol. 10.6 fl (6.2-12.0); Monocyte# 0.71 X10^3/uL; Monocyte% 8.8 % (0-10); NRBC Flagged by Analyzer 0 % (0-5); Neutrophil # 5.56 X10^3/uL (2.7-7.7); Neutrophil % 68.8 % (47-70); Platelet Count 186 K/mm3 (150-450); RBC Distribution Width CV 15.2 % (11.6-14.6); RBC Distribution Width SD 49.6 fl (35.1-43.9); Red Blood Count 4.57 M/mm3 (4.6-6.2); White Blood Count 8.1 K/mm3 (4.4-11.0)
[2023-10-31 17:47] LABS: BNP,B-Type NATRIURETIC PEPTIDE 205.2 pg/mL (0-100)
[2023-10-31 17:51] LABS: ALB/GLOB Ratio 0.8 RATIO (0.9-2.4); AST(SGOT) 18 U/L (15-37); Alanine Aminotransfer ALT/SGPT < 6 U/L (16-61); Albumin, Serum 2.9 g/dL (3.2-5.0); Alkaline Phosphatase 86 U/L (45-117); Anion Gap 5 (5-15); BUN 15 mg/dL (7-18); BUN/Creat Ratio 15.3 RATIO (10-20); Calcium,Total 8.4 mg/dL (8.5-10.1); Chloride 102 mmol/L (98-107); Creatinine, Serum 0.98 mg/dL (0.70-1.30); EST Glomerular Filtration Rate 77 mL/min (>60); Est Glom Filt Rate - Afr Amer 93 mL/min (>60); Globulin 3.8 g/dL (2.2-4.2); Glucose 101 mg/dL (74-106); Lipase 30 U/L (13-75); Potassium 3.5 mmol/L (3.5-5.1); Protein, Total 6.7 g/dL (6.4-8.2); Sodium Level 136 mmol/L (136-145); Troponin-I HS 19 pg/mL (3.0-78.0)
--- NOTE | 2023-10-31 19:04 | PCM.HP.STD ---
[facility] - General General Date of Admission: 10/31/23 Date of Service: 10/31/23 Chief Complaint: SOB. HPI Narrative TONI DING, is a 87 M with a past medical history of hypertension, hyperlipidemia, hypothyroidism, history of paroxysmal atrial fibrillation; on rivaroxaban and sotalol, history of coronary artery disease; status post stent placement (~2008), history of arrhythmia; status post permanent pacemaker (2016), history of monoclonal gammopathy of unknown significance, Parkinson's disease, glaucoma, GERD; with history of gastric ulcer, BPH; status post TURP, depression, bilateral sciatica; with pending evaluation by pain management and osteoarthritis who presents to [facility] ER complaining of shortness of breath. Mr. Ding reports his symptoms began approximately 2 to 3 days prior to admission with a gradual onset of nausea with decreased oral intake. Then earlier today he began to have a cough with generalized weakness and malaise. He denies fever, chills, myalgias or vomiting. He does have chronic lower extremity pain due to bilateral sciatica. In the ER he was noted to have CT evidence of early RLL pneumonia with clinical evidence of acute bronchitis complicated by acute hypoxic respiratory insufficiency and nausea with poor p.o. intake and malaise and he was then admitted to the general medical floor under observation status for a stay that is expected to be less than 48 hours. [facility] Medical History Atherosclerosis of coronary artery of [place] heart without angina pectoris Depression Essential hypertension Gastric ulcer Glaucoma Hyperlipidemia Hypothyroidism Insomnia MGUS (monoclonal gammopathy of unknown significance) Parkinson's disease Paroxysmal atrial fibrillation Polyneuropathy Vitamin D deficiency Home Medications brimonidine 0.15 % eye drops 1 drp ophthalmic (eye) TID 03/07/23 [History Last Taken 10/31/23] carbidopa 25 mg-levodopa 100 mg tablet (Sinemet) 1 tab PO TID 03/07/23 [History Last Taken 10/31/23] latanoprost 0.005 % eye drops 1 drp ophthalmic (eye) DAILY 03/07/23 [History Last Taken 10/30/23] mirtazapine 7.5 mg tablet 15 mg PO QHS 03/07/23 [History Last Taken 10/30/23] pantoprazole 40 mg tablet,delayed release 40 mg PO BID 03/07/23 [History Last Taken 10/31/23] levothyroxine 88 mcg tablet 88 mcg PO DAILY 04/05/23 [History Last Taken 10/31/23] sotalol 80 mg tablet 80 mg PO BID #180 tabs 06/07/23 [Rx Last Taken 10/31/23] rivaroxaban 20 mg tablet (Xarelto) 20 mg PO QPM #30 tabs 06/14/23 [Rx Last Taken 10/30/23] fluoxetine 10 mg tablet 10 mg PO DAILY 10/31/23 [History Last Taken 10/31/23] lisinopril 20 mg tablet 40 mg PO QHS 10/31/23 [History Last Taken 10/30/23] polyethylene glycol 3350 17 gram/dose oral powder (Miralax) 17 g PO DAILY 11/01/23 [History Last Taken Unknown] Allergy/AdvReac Type Severity Reaction Status Date / Time No Known Allergies Allergy Verified 10/31/23 15:58 Family History Mother Cervical cancer Brother , 50 Aortic dissection Surgical History History of bilateral cataract extraction History of coronary artery stent placement (~2008) History of hernia repair History of transurethral resection of prostate Presence of permanent cardiac pacemaker (03/31/16) Skin cancer Social History Smoking Status: Former smoker how long ago did patient quit smokin years ago alcohol intake: never substance use type: does not use caffeine: No ROS ROS Narrative Review of systems: Constitutional: Patient denies fever, chills or diaphoresis. Eyes: Patient denies visual changes. ENT: Patient denies ear pain, runny nose or sore throat. Cardiovascular: Patient denies chest pain palpitations or heart racing. Gastrointestinal: Patient admits to nausea but denies vomiting, abdominal pain, diarrhea or constipation. Genitourinary: Patient denies dysuria, hematuria or urinary frequency. Musculoskeletal: Patient denies arthralgias, myalgias or neck pain but he does admit to chronic pain in his lower extremities from bilateral sciatica. Integumentary: Patient denies rash. Neurologic: Patient denies headache or focal neurologic deficits. Psychiatric: Patient denies anxiety, depression, suicidal ideation or suicidal thoughts. Endocrine: Patient denies polydipsia, polyuria or polyphagia. Allergic: Patient denies lip swelling, tongue swelling or urticaria. Hematology: Patient denies easy bleeding or easy bruisability. 14 point review of systems otherwise negative except for positives noted above in HPI. Vital Signs Vital Signs Vital Signs: 10/31/23 15:58 10/31/23 16:28 10/31/23 18:00 Temperature 98.1 F Temperature Source Temporal Pulse Rate 86 85 Respiratory Rate 18 16 Respiratory Effort Short of Breath Respiratory Pattern Tachypnea Blood Pressure 171/74 H 188/96 H Blood Pressure Mean 106 126 Pulse Ox 90 98 Oxygen Delivery Method Room Air Nasal Cannula Oxygen Flow Rate (L/min) 2 10/31/23 18:00 10/31/23 19:00 Temperature 98.2 F Temperature Source Oral Pulse Rate 85 85 Respiratory Rate 16 16 Respiratory Effort Respiratory Pattern Blood Pressure 188/96 H 188/96 H Blood Pressure Mean 126 126 Pulse Ox 98 98 Oxygen Delivery Method Nasal Cannula Oxygen Flow Rate (L/min) 2 Physical Exam Const alert, oriented x3, no apparent distress, average body habitus and healthy appearing General Appearance: cooperative HEENT normocephalic, head/scalp atraumatic and hearing grossly normal bilaterally HEENT Narrative: Oropharynx dry. Eyes PERRL, EOMs intact bilaterally and conjunctivae normal Neck no lymphadenopathy and supple Resp normal respiratory effort, no retractions and no use of accessory muscles Cardio regular rate and regular rhythm GI normal to inspection, nondistended, normoactive bowel sounds, soft to palpation, non-tender and non-distended Extremity normal to inspection, full ROM and no clubbing, cyanosis or edema Skin Skin Narrative: Patient has no evidence of rash at this time. Neuro oriented x3, CN's II-XII intact bilaterally, moves all extremities and no focal motor deficits Sensorium / Orientation: awake, alert, oriented to person, oriented to place and oriented to time Speech: speech normal Motor Exam: strength 5/5 throughout Psych affect normal Results Medical Records Data Attestation: I reviewed the patient's medical records Lab / Micro Data Attestation: I reviewed the patient's lab results. Lab results narrative: [facility] Imaging Services [address] [place] [address] Chest without Contrast MR#: [id number] Acct: [id number] Name: TONI DING Rep #: [id number] : [id number] M [id number] From: Donnie Dyson MD PCP: Dr. William Cespedes MD Status: ADM LAY Study: Chest without Contrast Date of Exam: 10/31/23 Exam# [id number] Ordering Dr: Derek May DO INDICATION: dyspnea EXAMINATION: CT CHEST WITHOUT CONTRAST - CT Chest W/O Contrast Injection TECHNIQUE: Helically acquired images were obtained of the chest. A radiation dose optimization technique was used for this scan. IV Contrast dosage and agent: None. COMPARISON: AP portable chest October 29, 2023. FINDINGS: LUNGS, PLEURA AND LARGE AIRWAYS: Reticulonodular interstitial thickening is seen within the lungs bilaterally. There are multiple tiny subcentimeter peripheral nodules in the upper lobes There is small left pleural effusion and left lower lobe consolidation. There is also mild right basilar atelectasis or infiltrate THYROID: No thyroid lesions. HEART AND PERICARDIUM: Heart size is normal. No pericardial effusion. CORONARY ARTERIES: Multiple coronary artery stents VESSELS: Atherosclerotic changes of aorta without evidence for aneurysm MEDIASTINUM AND JEFERSON: Multiple small subcentimeter mediastinal and hilar nodes likely benign. Esophagus is unremarkable. No hiatal hernia. UPPER ABDOMEN: Calcified gallstones without evidence for acute cholecystitis. BONES dorsal spine demonstrates mild degenerative changes: No suspicious lytic or blastic abnormality. CT/Chest without Contrast IMPRESSION: Nonspecific reticulonodular interstitial thickening more pronounced in the upper lobes. Right lower lobe atelectasis or infiltrate. Small left pleural effusion and left lower lobe atelectasis or infiltrate. Electronically Signed: Donnie Dyson MD at 20:37 EST Reading Location ID and State: [facility] / [place] Tel , Service support , CC: Dr. Derek May DO; Dr. William Cespedes MD ~ Account Maintenance Representative: Signed 10/31/23 17:20 10/31/23 17:20 Labs: Laboratory Results - last 24 hr 10/31/23 17:20: WBC 8.1, RBC 4.57 L, Hgb 13.1, Hct 41.0, MCV 89.7, MCH 28.7, MCHC 32.0, RDW Std Deviation 49.6 H, RDW Coeff of Jefry 15.2 H, Plt Count 186, MPV 10.6, Immature Gran % (Auto) 3.300 H, Neut % (Auto) 68.8, Lymph % (Auto) 18.1 L, [place] % (Auto) 8.8, Eos % (Auto) 0.4, Baso % (Auto) 0.6, Absolute Neuts (auto) 5.6, Absolute Lymphs (auto) 1.46, Nucleated RBC % 0, Sodium 136, Potassium 3.5, Chloride 102, Carbon Dioxide 29.0, Anion Gap 5, BUN 15, Creatinine 0.98, Est GFR (MDRD) Af Amer 93, Est GFR (MDRD) Non-Af 77, BUN/Creatinine Ratio 15.3, Glucose 101, Calcium 8.4 L, Total Bilirubin 0.80, AST 18, ALT < 6 L, Alkaline Phosphatase 86, Troponin I High Sens 19, B-Natriuretic Peptide 205.2 H, Total Protein 6.7, Albumin 2.9 L, Globulin 3.8, Albumin/Globulin Ratio 0.8 L, Lipase 30 Micro: Microbiology 10/31/23 17:23 Nasal Secretion SARS-CoV-2 & FLU Antigen (Rapid) - Final Imagaing Radiology Impression Chest X-Ray 10/31/23 17:30 IMPRESSION: Diminished inspiratory effort and mild bibasilar atelectasis Electronically Signed: Donnie Dyson MD at 17:44 EST , Assessment & Plan Assessment/Plan (1) Pneumonia: QUALIFIERS: Laterality: right Lung location: lower lobe of lung Pneumonia type: due to unspecified organism Qualified Code(s): J18.9 - Pneumonia, unspecified organism (2) Acute bronchitis: QUALIFIERS: Bronchitis organism: unspecified organism Qualified Code(s): J20.9 - Acute bronchitis, unspecified (3) Acute respiratory insufficiency: (4) Severe nausea: PLAN: Plan 1. CT evidence of early RLL pneumonia acute bronchitis with clinical evidence of acute hypoxic respiratory insufficiency - Admit to general medical floor under observation status on droplet and contact precautions. Check viral respiratory panel and give empiric IV doxycycline twice daily. Give Mucinex 600 mg p.o. twice daily to help mobilize secretions. Give Tylenol as needed fever or pain. 2. Severe nausea with poor appetite and malaise arising from #1 - Continue supportive care and give IV Zofran as needed for breakthrough nausea. Volume resuscitate and monitor for improvement. 3. History of bilateral sciatica; with chronic bilateral lower exacerbated by #1 & #2 - PT/OT and case management to consult and treat this admission with help appreciated in advance. Patient will need to follow-up with pain management at time of discharge since he missed his appointment where he was to be injected for later today. 4. Parkinson's disease; on Sinemet - Stable. Continue current treatment as previous. 5. Paroxysmal atrial fibrillation; on rivaroxaban and sotalol - Current occasions to continue. 6. History of coronary artery disease; status post stent - Stable. Continue home medications as previous. 7. Essential hypertension - Resume home regimen plus give as needed IV hydralazine for systolic blood pressure greater than 160 mmHg. 8. Hyperlipidemia - Continue statin and check lipid profile. 9. Hypothyroidism - Resume Synthroid and check TSH. 10. History of arrhythmia; status post permanent pacemaker (2016) - Noted. 11. History of monoclonal gammopathy of unknown significance - Apparently stable at this time. 12. GERD; with history of gastric ulcer - Continue Protonix as previous. 13. BPH; status post TURP - Stable. 14. DVT prophylaxis - Patient is already on rivaroxaban for #5 which will be continued. Total time: Approximately 55 minutes. Charges/Coding Visit Charges Inpatient E&M: 44995 Init Hosp L2
[2023-10-31] MEDS: 0.9% Saline Lock 10 ML Syringe IV (21:02)
[2023-10-31] MEDS: 0.9% Normal Saline (1000mL) 1,000 ML 125 ML IV (21:02)
[2023-10-31] MEDS: BRIMONIDINE 0.15% 5 ML Bottle 1 DRP OPHTHALMIC (21:03)
[2023-10-31] MEDS: Latanoprost 0.005% 1 Bottle 1 DRP OPHTHALMIC (21:04)
[2023-10-31] MEDS: Sotalol Hydrochloride 80 MG Tablet PO (21:04)
[2023-10-31] MEDS: Mirtazapine 15 MG Tablet PO (21:06)
[2023-10-31] MEDS: Pantoprazole Sodium 40 MG Tablet PO (21:06)
[2023-10-31] MEDS: Lisinopril 40 MG Tablet PO (21:07)
[2023-10-31] MEDS: Doxycycline 100 MG in Dextrose 5%-Water (250mL Bag) 250 ML 250 MG IV (21:40)
[2023-10-31] MEDS: Polyethylene Glycol 3350 17 GM PACKET PO (23:55)
[2023-11-01 03:00] VITALS: BP 155/78; PULSE 78; RESP 16; TEMP 36.4; O2SAT 97
[2023-11-01 05:08] VITALS: BMI 29.7
[2023-11-01] MEDS: 0.9% Normal Saline (1000mL) 1,000 ML 125 ML IV ×2 (05:58→17:00)
[2023-11-01] MEDS: Levothyroxine 88 MCG Tablet PO (05:58)
[2023-11-01] MEDS: BRIMONIDINE 0.15% 5 ML Bottle 1 DRP OPHTHALMIC ×3 (05:59→21:24)
[2023-11-01 07:28] VITALS: O2SAT 76
[2023-11-01 07:47] LABS: Absolute Lymphocyte Count 1.51 X10^3/uL (0.83-4.51); Absolute Neutrophil Count 5.8 X10^3/uL (2.0-7.7); Basophil# 0.07 X10^3/uL; Basophil% 0.8 % (0-1); Eosinophil# 0.05 X10^3/uL; Eosinophils% 0.6 % (0-5); Hematocrit 35.7 % (40-54); Hemoglobin 11.2 g/dL (13.0-16.5); Lymphocyte # 1.51 X10^3/ul (0.83-4.51); Lymphocyte % 17.7 % (19-41); Mean Corp Hgb Conc 31.4 g/dL (32-36); Mean Corpuscular Hgb 28.3 pg (27.0-32.0); Mean Corpuscular Volume 90.2 fL (80-94); Mean Platelet Vol. 10.7 fl (6.2-12.0); Monocyte# 0.88 X10^3/uL; Monocyte% 10.3 % (0-10); NRBC Flagged by Analyzer 0 % (0-5); Neutrophil # 5.75 X10^3/uL (2.7-7.7); Neutrophil % 67.2 % (47-70); Platelet Count 166 K/mm3 (150-450); RBC Distribution Width CV 15.3 % (11.6-14.6); RBC Distribution Width SD 50.1 fl (35.1-43.9); Red Blood Count 3.96 M/mm3 (4.6-6.2); White Blood Count 8.6 K/mm3 (4.4-11.0)
[2023-11-01] MEDS: Ascorbic Acid 500 MG Tablet 1000 MG PO ×2 (08:06→16:59)
[2023-11-01] MEDS: Carbidopa/Levodopa 25/100 Tablet PO ×3 (08:06→16:58)
[2023-11-01 08:28] LABS: Cholesterol 116 mg/dL (200); High Density Lipoprotein 28 mg/dL; Triglycerides 125 mg/dL; Very Low Density Lipoprotein 25 mg/dL (5-40)
[2023-11-01 08:32] LABS: ALB/GLOB Ratio 0.7 RATIO (0.9-2.4); AST(SGOT) 21 U/L (15-37); Alanine Aminotransfer ALT/SGPT 16 U/L (16-61); Albumin, Serum 2.3 g/dL (3.2-5.0); Alkaline Phosphatase 72 U/L (45-117); Anion Gap 3 (5-15); BUN 11 mg/dL (7-18); BUN/Creat Ratio 11.3 RATIO (10-20); Chloride 106 mmol/L (98-107); Creatinine, Serum 0.98 mg/dL (0.70-1.30); EST Glomerular Filtration Rate 77 mL/min (>60); Est Glom Filt Rate - Afr Amer 94 mL/min (>60); Estimated Creatinine Clearance 61.15 ml/min; Globulin 3.3 g/dL (2.2-4.2); Glucose 113 mg/dL (74-106); Magnesium 1.7 mg/dL (1.6-2.6); Phosphorus 3.6 mg/dL (2.5-4.9); Protein, Total 5.6 g/dL (6.4-8.2); Sodium Level 138 mmol/L (136-145); Thyroid Stim Hormone (TSH) 1.62 uIU/mL (0.358-3.74)
--- NOTE | 2023-11-01 08:57 | PCM.PN.HOSP ---
Reason for Visit Reason for Visit: Diagnoses Pneumonia, unspecified organism (10/31/23) Acute bronchitis, unspecified (10/31/23) Other abnormalities of breathing (10/31/23) Nausea (10/31/23) Objective Data Objective Data Vital Signs: Vital Signs Temp Pulse Resp BP Pulse Ox O2 Del Method O2 Flow Rate 97.5 F L 78 16 155/78 H 76 Room Air 2 11/01/23 03:00 11/01/23 03:00 11/01/23 03:00 11/01/23 03:00 11/01/23 07:28 11/01/23 07:28 10/31/23 19:24 Oxygen Flow Rate (L/min) 2 Oxygen Delivery Method Room Air Weight: 225 lb 8.526 oz Body Mass Index (BMI) 29.7 Intake & Output: Intake and Output for Last 24 Hours 10/30/23 10/31/23 11/01/23 23:59 23:59 23:59 Intake Total 1500 / 1500 1240 / 1240 Output Total 400 / 400 300 / 300 Balance 1100 / 1100 940 / 940 Lab / Micro Data 11/01/23 07:10 11/01/23 07:10 Labs: Laboratory Results - last 24 hr 10/31/23 17:20: WBC 8.1, RBC 4.57 L, Hgb 13.1, Hct 41.0, MCV 89.7, MCH 28.7, MCHC 32.0, RDW Std Deviation 49.6 H, RDW Coeff of Jefry 15.2 H, Plt Count 186, MPV 10.6, Immature Gran % (Auto) 3.300 H, Neut % (Auto) 68.8, Lymph % (Auto) 18.1 L, [place] % (Auto) 8.8, Eos % (Auto) 0.4, Baso % (Auto) 0.6, Absolute Neuts (auto) 5.6, Absolute Lymphs (auto) 1.46, Nucleated RBC % 0, Sodium 136, Potassium 3.5, Chloride 102, Carbon Dioxide 29.0, Anion Gap 5, BUN 15, Creatinine 0.98, Est GFR (MDRD) Af Amer 93, Est GFR (MDRD) Non-Af 77, BUN/Creatinine Ratio 15.3, Glucose 101, Calcium 8.4 L, Total Bilirubin 0.80, AST 18, ALT < 6 L, Alkaline Phosphatase 86, Troponin I High Sens 19, B-Natriuretic Peptide 205.2 H, Total Protein 6.7, Albumin 2.9 L, Globulin 3.8, Albumin/Globulin Ratio 0.8 L, Lipase 30 11/01/23 07:10: WBC 8.6, RBC 3.96 L, Hgb 11.2 L, Hct 35.7 L, MCV 90.2, MCH 28.3, MCHC 31.4 L, RDW Std Deviation 50.1 H, RDW Coeff of Jefry 15.3 H, Plt Count 166, MPV 10.7, Immature Gran % (Auto) 3.400 H, Neut % (Auto) 67.2, Lymph % (Auto) 17.7 L, [place] % (Auto) 10.3 H, Eos % (Auto) 0.6, Baso % (Auto) 0.8, Absolute Neuts (auto) 5.8, Absolute Lymphs (auto) 1.51, Nucleated RBC % 0, Sodium 138, Potassium 4.0, Chloride 106, Carbon Dioxide 29.0, Anion Gap 3 L, BUN 11, Creatinine 0.98, Estim Creat Clear Calc 61.15, Est GFR (MDRD) Af Amer 94, Est GFR (MDRD) Non-Af 77, BUN/Creatinine Ratio 11.3, Glucose 113 H, Calcium 8.0 L, Phosphorus 3.6, Magnesium 1.7, Total Bilirubin 0.80, AST 21, ALT 16, Alkaline Phosphatase 72, Total Protein 5.6 L, Albumin 2.3 L, Globulin 3.3, Albumin/Globulin Ratio 0.7 L, Triglycerides 125, Cholesterol 116, LDL Cholesterol 63, VLDL Cholesterol 25, HDL Cholesterol 28 L, TSH 1.62 Micro: Microbiology 10/31/23 19:24 Mucosa - Nasopharyngeal Respiratory Panel (PCR) - Final 10/31/23 17:23 Nasal Secretion SARS-CoV-2 & FLU Antigen (Rapid) - Final Radiography Diagnostic Testing: Radiology Impression Chest X-Ray 10/31/23 17:30 IMPRESSION: Diminished inspiratory effort and mild bibasilar atelectasis Electronically Signed: Donnie Dyson MD at 17:44 EST , Chest CT 10/31/23 19:06 IMPRESSION: Nonspecific reticulonodular interstitial thickening more pronounced in the upper lobes. Right lower lobe atelectasis or infiltrate. Small left pleural effusion and left lower lobe atelectasis or infiltrate. Electronically Signed: Donnie Dyson MD at 20:37 EST Reading Location ID and State: [address] [place] [address] Tel , Service support , Physical Exam Narrative Seen and examined. Patient has feeling of generalized weakness, not able to walk mainly because of bilateral hip pain more on the right, sciatica in nature. No nausea or vomiting. No fever. Does not have symptoms and signs of pneumonia. No dysuria. General: Alert, Oriented x3, Cooperative HEENT: Atraumatic, PERRLA, EOMI, Normocephalic Oral: No Gingival or Mucosal Lesions/ Ulcerations Neck: Supple, No JVD, Negative Carotid Bruits Lungs: Air entry diminished in bilateral lung bases. No crepitation/rhonchi. On oxygen through nasal cannula Cardiovascular: Regular rate, Regular Rhythm, Normal S1, Normal S2, No murmurs Abdomen: Bowel Sounds Present, Soft, Non Tender, Non-Distended : No dysuria. No renal angle tenderness. No suprapubic tenderness. Extremities: No edema, Capillary Refill Less than 3 Seconds Skin: No rashes, No breakdown Musculoskeletal: Mild tenderness over right pelvic bone on lateral side. Muscle strength 4+/5, right hip is weaker than left hip mainly due to degenerative arthritis. Neurological: Tremors, Parkinson's disease. Cranial nerves II-XII grossly intact, DTR 2+/4. No acute focal neurological deficit. Psych/Mental Status: Flat affect. Assessment & Plan Assessment/Plan (1) Pneumonia: (2) Acute bronchitis: (3) Acute respiratory insufficiency: (4) Severe nausea: PLAN: Plan 87-year-old gentleman who was admitted with chief complaint of feeling unwell, generalized weakness nausea, lethargy with decreased oral intake 2 to 3 days. No abdominal pain, no vomiting, no diarrhea. No fever. Patient has a cough. Chronic bilateral lower extremity pain secondary to bilateral sciatica. 1. Mild hypoxia with low suspicion of interstitial pneumonia with small left pleural effusion with bilateral underlying atelectasis, possible nonspecific acute viral syndrome: CT chest individually reviewed. Reticulonodular interstitial thickening with multiple tiny subcentimeter peripheral nodules in the upper lobes. Patient is on IV doxycycline. Changed to oral doxycycline. Aggressive bronchopulmonary hygiene. Mucinex DM. Respiratory panel is negative. Rapid COVID antigen negative. Urinary antigens are ordered 2. Severe nausea with poor appetite and malaise - Continue supportive care and give IV Zofran as needed for breakthrough nausea. Volume resuscitate and monitor for improvement. 3. History of bilateral sciatica: Patient follows with pain management Dr. Lamin Espino and same is consulted. PT/OT and case management. Patient is scheduled for hip injection. 4. Parkinson's disease with tremors and disequilibrium; on Sinemet Continue current treatment as previous. 5. Paroxysmal atrial fibrillation; on rivaroxaban and sotalol - Current occasions to continue. 6. History of coronary artery disease; status post stent - Stable. Continue home medications as previous. 7. Essential hypertension - Resume home regimen plus give as needed IV hydralazine for systolic blood pressure greater than 160 mmHg. 8. Hyperlipidemia - Continue statin and check lipid profile. 9. Hypothyroidism - Resume Synthroid and TSH normal. 10. History of arrhythmia; status post permanent pacemaker (2016) - Noted. 11. History of monoclonal gammopathy of unknown significance - Apparently stable at this time. 12. GERD; with history of gastric ulcer - Continue Protonix as previous. 13. BPH; status post TURP - Stable. 14. DVT prophylaxis - Patient is already on rivaroxaban for #5 which will be continued. Charges/Coding Visit Charges Inpatient E&M: 89160 Subs Hosp L2
[2023-11-01 09:00] VITALS: BP 147/62; PULSE 76; RESP 19; TEMP 36.7; O2SAT 92
[2023-11-01] MEDS: Doxycycline 100 MG in Dextrose 5%-Water (250mL Bag) 250 ML 250 MG IV ×2 (10:02→21:28)
[2023-11-01] MEDS: FLUoxetine 10 MG Capsule PO (10:03)
[2023-11-01] MEDS: Pantoprazole Sodium 40 MG Tablet PO ×2 (10:03→21:23)
[2023-11-01] MEDS: Sotalol Hydrochloride 80 MG Tablet PO ×2 (10:03→21:23)
[2023-11-01] MEDS: Cholecalciferol (Vit D3) 125 MCG CAPSULE (5,000 UNITS) PO (10:26)
[2023-11-01] MEDS: guaiFENesin/D-Methorphan TAB.SR.12H 2 TABLET PO (10:26)
[2023-11-01] MEDS: Polyethylene Glycol 3350 17 GM PACKET PO (11:20)
--- NOTE | 2023-11-01 12:25 | CON.PCM_ITS ---
Assessment & Plan Assessment/Plan (1) Hip pain: QUALIFIERS: Laterality: right Qualified Code(s): M25.551 - Pain in right hip PLAN: Mr. Ding is being seen for consultation regarding low back, hip and lower extremity pain. He was referred to my clinic by Dr. Cespedes, but was admitted for infection concerns (Nausea, GI upset and bronchitis). He states the pain started about 3 weeks ago 1 week after a road trip to [place]. He states it was mostly spent in the car and not in the wilderness. The pain started out of the blue with pain in the right hip. As it progressively worsened he also notes some pain in the right knee. He saw Dr. Cespedes, whom performed an injection in the hip area which provided 3 days of complete relief, but the pain returned quickly. He returned to Dr. Cespedes's office about 2 weeks later for the pain. he was given a steroid pulse regimen for 1 week, started on gabapentin, baclofen and naproxen. He states these did help somewhat with the pain. Otherwise the pain is worsened with walking and at night. There is no tenderness to palpation. He has run out of these medications. Since admission, he has not been given much of any pain control medications. He notes that his pain is mostly at night, when he tries to sleep on his side and it has been quite severe preventing him from sleeping most of the night. During the day he says the pain has not been much of an issue, partially because he has been less active in the hospital. He denies any other significant side effects. His nausea and Gi upset has improved. He denies fevers, chills, burning or changes in urination, rashes or any other symptomatic issues. He is currently being treated with doxycycline. XR imaging showed no significant OA nor fracture from 10/26. His pain appears to be related to the joint, although it is only present at night or with walking. His examination was relatively benign and only standing was able to elicit his pain. It seems that since it is so acute in nature and also has migrated previously to the right knee that there may be a reactive/infectious etiology. He is on doxycycline currently. -I will speak to the primary team about possible infectious relationship, although the timeline is a bit perplexing as he has had the pain symptoms for a few weeks, but otherwise makes me feel that there may be a reactive arthralgia component. Perhaps viral vs lyme vs reiters syndrome? -I think ruling out lyme disease is reasonable along with possible reactive arthritis etiologies. Already being treated with doxy. -Lumbar/pelvic MRI to rule out possible radiculopathy and investigate the hip, although it is a bit of a nonclassical presentation. Consider right hip aspiration if fluid is present on imaging. Culture of the synovial fluid may be of limited value since he has been started on antibiotic therapy. -I will start him on tizanidine 2mg at bedtime to help with some of his spasm pain (he complains of this) and also perhaps help with his sleep. -Can restart gabapentin 100mg at bedtime then slowly uptitrate, but will hold off while trying the tizanidine. Can consider this as outpatient. -He should avoid NSAIDS while on rivaroxaban. -PRN tylenol is reasonable -Can offer 1 tablet of norco every 8 hours prn for when the pain becomes severe. He states he was barely able to sleep last night due to pain. THis pain medication would be short term as we are attempting to workup his pain. -Will follow up with him on Monday for outpatient appointment. (2) Back pain: QUALIFIERS: Back pain laterality: right Back pain location: low back pain Chronicity: acute Sciatica presence: with sciatica Qualified Cod e(s): M54.41 - Lumbago with sciatica, right side PLAN: Lumbar XR from 10/12 showed scoliosis and spondylosis. He has no significant lower back pain today on examination. There was concern that he had radiculopathy. Per the history and physical examination, it is unclear if the lower back is responsible for his pain. It seems more likely to be arthralgia (perhaps related to an infectious etiology?). Regardless, I think it is reasonable to obtain an MRI to further work up his acute severe pain. HPI Consult Data Date of Consult: 11/01/23 HPI Narrative Reason for Consultation: For hip and lower extremity pain HPI Narrative: TONI DING, is a 87 M who presents for consultation regarding low back, hip and lower extremity pain. He was referred to my clinic by Dr. Cespedes, but was admitted for infection concerns (Nausea, GI upset and bronchitis). I am being consulted as he is an inpatient. He states the pain started about 3 weeks ago 1 week after a road trip to [place]. He states it was mostly spent in the car and not in the wilderness. The pain started out of the blue with pain in the right hip. As it progressively worsened he also notes some pain in the right knee. He saw Dr. Cespedes, whom performed an injection in the hip area which provided 3 days of complete relief, but the pain returned quickly. He returned to Dr. Cespedes's office about 2 weeks later for the pain. he was given a steroid pulse regimen for 1 week, started on gabapentin, baclofen and naproxen. He states these did help somewhat with the pain. Otherwise the pain is worsened with walking and at night. There is no tenderness to palpation. He has run out of these medications. He describes the pain as sharp and burning. It is 7- 8/10 when it is severe. It is intermittent in nature. Since admission, he has not needed much of any pain control medicaitons. he notes that his pain is mostly at night, when he tries to sleep on his side. He denies any other significant side effects. His nausea and Gi upset has improved. he denes fevers, chills, burning or changes in urination, rashes or any other symptomatic issues. [facility] Medical History Atherosclerosis of coronary artery of ute heart without angina pectoris Depression Essential hypertension Gastric ulcer Glaucoma Hyperlipidemia Hypothyroidism Insomnia MGUS (monoclonal gammopathy of unknown significance) Parkinson's disease Paroxysmal atrial fibrillation Polyneuropathy Vitamin D deficiency Home Medications brimonidine 0.15 % eye drops 1 drp ophthalmic (eye) TID 03/07/23 [History Last Taken 10/31/23] carbidopa 25 mg-levodopa 100 mg tablet (Sinemet) 1 tab PO TID 03/07/23 [History Last Taken 10/31/23] latanoprost 0.005 % eye drops 1 drp ophthalmic (eye) DAILY 03/07/23 [History Last Taken 10/30/23] mirtazapine 7.5 mg tablet 15 mg PO QHS 03/07/23 [History Last Taken 10/30/23] pantoprazole 40 mg tablet,delayed release 40 mg PO BID 03/07/23 [History Last Taken 10/31/23] levothyroxine 88 mcg tablet 88 mcg PO DAILY 04/05/23 [History Last Taken 10/31/23] sotalol 80 mg tablet 80 mg PO BID #180 tabs 06/07/23 [Rx Last Taken 10/31/23] rivaroxaban 20 mg tablet (Xarelto) 20 mg PO QPM #30 tabs 06/14/23 [Rx Last Taken 10/30/23] fluoxetine 10 mg tablet 10 mg PO DAILY 10/31/23 [History Last Taken 10/31/23] lisinopril 20 mg tablet 40 mg PO QHS 10/31/23 [History Last Taken 10/30/23] polyethylene glycol 3350 17 gram/dose oral powder (Miralax) 17 g PO DAILY 11/01/23 [History Last Taken Unknown] Allergy/AdvReac Type Severity Reaction Status Date / Time No Known Allergies Allergy Verified 10/31/23 15:58 Family History Mother Cervical cancer Brother , 50 Aortic dissection Surgical History History of bilateral cataract extraction History of coronary artery stent placement (~2008) History of hernia repair History of transurethral resection of prostate Presence of permanent cardiac pacemaker (03/31/16) Skin cancer Social History Smoking Status: Former smoker how long ago did patient quit smokin years ago alcohol intake: never substance use type: does not use caffeine: No ROS ROS Narrative See H an P Physical Exam Narrative He has no paraspinal tenderness. No Si tenderness. Negative fabers. Mild tenderness in the right hip with hip provocative maneuvers. No GTB tenderness. Negative SLR. Negative piriformis testing. 5/5 strength in the right lower extremity, except for 4/5 with hip flexion on the right. Pain in the right hip with standing. Antalgic gait. Physciologic lower extremity DTR. Normal sensation. Const alert, no apparent distress and well nourished General Appearance: cooperative and well developed HEENT normocephalic Eyes EOMs intact bilaterally Resp Resp Narrative: On nasal canula Neuro CN's II-XII intact bilaterally Psych affect normal Lab / Micro Data 11/01/23 07:10 11/01/23 07:10 Labs: Laboratory Results - last 24 hr 10/31/23 17:20: WBC 8.1, RBC 4.57 L, Hgb 13.1, Hct 41.0, MCV 89.7, MCH 28.7, MCHC 32.0, RDW Std Deviation 49.6 H, RDW Coeff of Jefry 15.2 H, Plt Count 186, MPV 10.6, Immature Gran % (Auto) 3.300 H, Neut % (Auto) 68.8, Lymph % (Auto) 18.1 L, [place] % (Auto) 8.8, Eos % (Auto) 0.4, Baso % (Auto) 0.6, Absolute Neuts (auto) 5.6, Absolute Lymphs (auto) 1.46, Nucleated RBC % 0, Sodium 136, Potassium 3.5, Chloride 102, Carbon Dioxide 29.0, Anion Gap 5, BUN 15, Creatinine 0.98, Est GFR (MDRD) Af Amer 93, Est GFR (MDRD) Non-Af 77, BUN/Creatinine Ratio 15.3, Glucose 101, Calcium 8.4 L, Total Bilirubin 0.80, AST 18, ALT < 6 L, Alkaline Phosphatase 86, Troponin I High Sens 19, B-Natriuretic Peptide 205.2 H, Total Protein 6.7, Albumin 2.9 L, Globulin 3.8, Albumin/Globulin Ratio 0.8 L, Lipase 30 11/01/23 07:10: WBC 8.6, RBC 3.96 L, Hgb 11.2 L, Hct 35.7 L, MCV 90.2, MCH 28.3, MCHC 31.4 L, RDW Std Deviation 50.1 H, RDW Coeff of Jefry 15.3 H, Plt Count 166, M PV 10.7, Immature Gran % (Auto) 3.400 H, Neut % (Auto) 67.2, Lymph % (Auto) 17.7 L, [place] % (Auto) 10.3 H, Eos % (Auto) 0.6, Baso % (Auto) 0.8, Absolute Neuts (auto) 5.8, Absolute Lymphs (auto) 1.51, Nucleated RBC % 0, Sodium 138, P otassium 4.0, Chloride 106, Carbon Dioxide 29.0, Anion Gap 3 L, BUN 11, Creat inine 0.98, Estim Creat Clear Calc 61.15, Est GFR (MDRD) Af Amer 94, Est GFR (MDRD) Non-Af 77, BUN/Creatinine Ratio 11.3, Glucose 113 H, Calcium 8.0 L, Ph osphorus 3.6, Magnesium 1.7, Total Bilirubin 0.80, AST 21, ALT 16, Alkaline Phosphatase 72, Total Protein 5.6 L, Albumin 2.3 L, Globulin 3.3, Albumin/Globulin Ratio 0.7 L, Triglycerides 125, Cholesterol 116, LDL Cholesterol 63, VLDL Cholesterol 25, HDL Cholesterol 28 L, TSH 1.62 Micro: Microbiology 10/31/23 19:24 Mucosa - Nasopharyngeal Respiratory Panel (PCR) - Final 10/31/23 17:23 Nasal Secretion SARS-CoV-2 & FLU Antigen (Rapid) - Final Imagaing Radiology Impression Chest X-Ray 10/31/23 17:30 IMPRESSION: Diminished inspiratory effort and mild bibasilar atelectasis Electronically Signed: Donnie Dyson MD at 17:44 EST , Chest CT 10/31/23 19:06 IMPRESSION: Nonspecific reticulonodular interstitial thickening more pronounced in the upper lobes. Right lower lobe atelectasis or infiltrate. Small left pleural effusion and left lower lobe atelectasis or infiltrate. Electronically Signed: Donnie Dyson MD at 20:37 EST ,
[2023-11-01 14:30] VITALS: BP 128/81; PULSE 70; RESP 16; TEMP 36.6; O2SAT 92
[2023-11-01] MEDS: Rivaroxaban 20 MG Tablet PO (17:00)
[2023-11-01 21:17] VITALS: BP 153/74; PULSE 71; RESP 18; TEMP 36.8; O2SAT 93
[2023-11-01] MEDS: tiZANidine HCl 2 MG Tablet PO (21:23)
[2023-11-01] MEDS: Lisinopril 40 MG Tablet PO (21:23)
[2023-11-01] MEDS: Latanoprost 0.005% 1 Bottle 1 DRP OPHTHALMIC (21:24)
[2023-11-01] MEDS: HYDROcodone Bitartrate/Apap 5/325 Tablet PO (21:46)
[2023-11-01] MEDS: MELATONIN 3 MG TABLET PO (21:47)
[2023-11-02] VITALS (9 sets, daily range): BP systolic 137–175; BP diastolic 62–82; PULSE 72–78; RESP 15–18; TEMP 36.2–37.1; O2SAT 88–96; BMI 30.4
[2023-11-02] MEDS: 0.9% Normal Saline (1000mL) 1,000 ML 125 ML IV (02:50)
[2023-11-02] MEDS: Albuterol 2.5 MG/3 ML VIAL.NEB. INHALATION ×2 (03:11→12:37)
[2023-11-02] MEDS: BRIMONIDINE 0.15% 5 ML Bottle 1 DRP OPHTHALMIC ×3 (05:17→22:13)
[2023-11-02] MEDS: Levothyroxine 88 MCG Tablet PO (05:17)
[2023-11-02] MEDS: FLUoxetine 10 MG Capsule PO (08:53)
[2023-11-02] MEDS: Pantoprazole Sodium 40 MG Tablet PO ×2 (08:53→22:15)
[2023-11-02] MEDS: Carbidopa/Levodopa 25/100 Tablet PO ×3 (08:53→18:09)
--- NOTE | 2023-11-02 10:40 | CASEMGMT ---
YESENIA MALONE Face to Face with patient for initial transition planning/care coordination assessment. RN FAISAL introduced self and role at [facility]. Patient lying in bed, alert and oriented, daughters at bedside. Patient willing to participate in assessment and is able to answer all questions appropriately. Care providers, pharmacy, and demographics verified. Patient wishes to discharge home, will monitor for HHC at discharge pending therapy. Patient states he has no further needs or concerns at this time. CM to follow for discharge planning needs that may arise. PCP: Coy Specialists: COREEN, hospital corpsman; Starr cover making machine operator Preferred Pharmacy: [facility] Insurance: Snaps [facility] Prescription Benefit: yes Living Will/HPOA: yes, Lizzeth Ding LNOK: son, daughters Living Arrangements: Patient lives with daughter in a 2 story home with bed and bath on first floor. Patient is independent at home. Transportation: daughters DME/HHC: Patient has shower chair, raised toilet, cane, grab bars, pulse ox at home. Will monitor for home oxygen and walker at discharge. Patient prefers [employer] for DME. No previous HHC or SNF Disposition Plan: Patient to discharge home with family support and follow-up plans in place. Will monitor for HHC. Amy DAVIS, RN, CM
[2023-11-02] MEDS: Furosemide 40 MG/4 ML Vial IV (10:56)
[2023-11-02] MEDS: Ondansetron 4 MG/2 ML Vial IV ×2 (10:56→22:17)
--- NOTE | 2023-11-02 11:10 | RAD_ITS ---
STUDY: X-RAY CHEST REASON FOR EXAM: Male, 87 years old. sob TECHNIQUE: PA and lateral views of the chest. COMPARISON: Comparison is made with prior study October 31, 2023. FINDINGS: Progressive left lower lobe infiltrate. Mild residual improvement of the right basilar infiltrate. Normal size heart. A left-sided dual-chamber pacemaker is seen. Normal mediastinum and zeny. Normal visualized pulmonary arteries. There is atherosclerotic calcification of the aortic arch with tortuosity. Normal visualized thoracic spine. Normal visualized ribs, clavicles, and shoulders. Gallstones. RAD/Chest PA and Lateral IMPRESSION: Progressive left lower lobe infiltrate. Improved aeration at the right lung base. Electronically Signed: Sav Morillo MD at 11:30 EST ,
[2023-11-02] MEDS: Doxycycline 100 MG CAPSULE PO ×2 (11:37→22:15)
[2023-11-02 11:54] LABS: Bedside Glucose 174 mg/dL (74-106)
[2023-11-02] MEDS: Sotalol Hydrochloride 80 MG Tablet PO ×2 (12:10→22:15)
[2023-11-02] MEDS: Ipratropium/Albuterol Sulfate 3 ML AMPUL.NEB INHALATION ×2 (12:37→20:09)
[2023-11-02] MEDS: proMETHazine 25 MG/ML Syringe IM (15:59)
[2023-11-02] MEDS: 0.9% Saline Lock 10 ML Syringe IV ×2 (16:00→22:17)
--- NOTE | 2023-11-02 17:19 | PCM.PN.HOSP ---
Reason for Visit Reason for Visit: Diagnoses Pneumonia, unspecified organism (11/01/23) Acute bronchitis, unspecified (11/01/23) Pain in right hip (11/01/23) Lumbago with sciatica, right side (11/01/23) Other abnormalities of breathing (11/01/23) Nausea (11/01/23) Objective Data Objective Data Vital Signs: Vital Signs Temp Pulse Resp BP Pulse Ox O2 Del Method O2 Flow Rate 98.4 F 78 15 137/82 H 92 Room Air 2 11/02/23 14:30 11/02/23 14:30 11/02/23 14:30 11/02/23 14:30 11/02/23 14:30 11/02/23 14:30 11/02/23 13:31 Oxygen Flow Rate (L/min) 2 Oxygen Delivery Method Room Air Weight: 230 lb 6.129 oz Body Mass Index (BMI) 30.4 Intake & Output: Intake and Output for Last 24 Hours 10/31/23 11/01/23 11/02/23 23:59 23:59 23:59 Intake Total 1500 / 1500 2760 / 2760 1956.25 / 1956.25 Output Total 400 / 400 900 / 900 700 / 700 Balance 1100 / 1100 1860 / 1860 1256.25 / 1256.25 Lab / Micro Data 11/01/23 07:10 11/01/23 07:10 Labs: Laboratory Results - last 24 hr 11/01/23 11:17: POC Glucose 174 H Micro: Microbiology 11/01/23 22:07 Urine, Clean Catch Chlamydia trachomatis (PCR) - Final 11/01/23 11:55 Urine, Clean Catch Legionella Antigen - Final 11/01/23 11:55 Urine, Clean Catch Streptococcus pneumoniae Antigen (M - Final 10/31/23 19:24 Mucosa - Nasopharyngeal Respiratory Panel (PCR) - Final 10/31/23 17:23 Nasal Secretion SARS-CoV-2 & FLU Antigen (Rapid) - Final Radiography Diagnostic Testing: Radiology Impression Chest X-Ray 11/02/23 11:10 IMPRESSION: Progressive left lower lobe infiltrate. Improved aeration at the right lung base. Electronically Signed: Sav Morillo MD at 11:30 EST , Physical Exam Narrative Seen and examined. Patient is more short of breath. He stated that his both lateral aspect of pelvis hurts when he lays on it. He denies sciatica type pain as it does not originate from lower back although he had lower back pain in remote past. Recently he complains of pain that originates from lateral aspect of hip and runs laterally to the knees. Patient has feeling of generalized weakness, not able to walk mainly because of bilateral hip pain more on the right. Patient feeling also nauseous. Physical exam General: Alert, Oriented x3, Cooperative HEENT: Atraumatic, PERRLA, EOMI, Normocephalic Oral: No Gingival or Mucosal Lesions/ Ulcerations Neck: Supple, No JVD, Negative Carotid Bruits Lungs: Air entry diminished in bilateral lung bases. Bilateral fine crepitations. Mild dyspnea at rest. On oxygen through nasal cannula Cardiovascular: Regular rate, Regular Rhythm, Normal S1, Normal S2, No murmurs Abdomen: Bowel Sounds Present, Soft, Non Tender, Non-Distended : No dysuria. No renal angle tenderness. No suprapubic tenderness. Extremities: No edema, Capillary Refill Less than 3 Seconds Skin: No rashes, No breakdown Musculoskeletal: Mild tenderness over right and left pelvic bone on lateral side. Muscle strength 4+/5, right hip is weaker than left hip mainly due to degenerative arthritis. Neurological: Tremors, Parkinson's disease. Cranial nerves II-XII grossly intact, DTR 2+/4. No acute focal neurological deficit. Psych/Mental Status: Flat affect. Assessment & Plan Assessment/Plan (1) Pneumonia: QUALIFIERS: Pneumonia type: due to unspecified organism Laterality: right Lung location: lower lobe of lung Qualified Code(s): J18.9 - Pneumonia, unspecified organism (2) Acute bronchitis: QUALIFIERS: Bronchitis organism: unspecified organism Qualified Code(s): J20.9 - Acute bronchitis, unspecified (3) Acute respiratory insufficiency: (4) Severe nausea: PLAN: Plan 87-year-old gentleman who was admitted with chief complaint of feeling unwell, generalized weakness nausea, lethargy with decreased oral intake 2 to 3 days. No abdominal pain, no vomiting, no diarrhea. No fever. Patient has a cough. Chronic bilateral lower extremity pain secondary to bilateral sciatica. 1. Mild hypoxia with low suspicion of interstitial pneumonia with small left pleural effusion with bilateral underlying atelectasis, possible nonspecific acute viral syndrome: CT chest individually reviewed. Reticulonodular interstitial thickening with multiple tiny subcentimeter peripheral nodules in the upper lobes. Patient is on IV doxycycline. Changed to oral doxycycline. Aggressive bronchopulmonary hygiene. Mucinex DM. Respiratory panel is negative. Rapid COVID antigen negative. Urinary antigens are ordered Close +: Repeat chest x-ray PA and lateral was done which shows increasing infiltration in the lung bases as compared to the previous. Improvement in right lung base infiltrate. Urinary antigens are negative. Patient started on IV ceftriaxone 2 g daily. Lasix 40 mg IV also given as patient clinically seems fluid overload. DuoNeb every 6 hourly. BNP and 2D echo ordered. Rest as mentioned above 2. Severe nausea with poor appetite and malaise - Continue supportive care and give IV Zofran as needed for breakthrough nausea. Volume resuscitate and monitor for improvement. 3. Patient has chronic lower back pain, currently bilateral pelvic/hip pain probably positional: From history does not seem current episode of bilateral sciatica pain.: Patient follows with pain management Dr. Lamin Espino and same is consulted. PT/OT and case management. Discussed with Dr. Cruz yesterday and hip injection not indicated. I talked to the about daughters in detail about the nature of hip and thigh pain. 4. Parkinson's disease with tremors and disequilibrium; on Sinemet Continue current treatment as previous. 5. Paroxysmal atrial fibrillation; on rivaroxaban and sotalol - Current occasions to continue. 6. History of coronary artery disease; status post stent - Stable. Continue home medications as previous. 7. Essential hypertension - Resume home regimen plus give as needed IV hydralazine for systolic blood pressure greater than 160 mmHg. 8. Hyperlipidemia - Continue statin and check lipid profile. 9. Hypothyroidism - Resume Synthroid and TSH normal. 10. History of arrhythmia; status post permanent pacemaker (2016) - Noted. 11. History of monoclonal gammopathy of unknown significance - Apparently stable at this time. 12. GERD; with history of gastric ulcer - Continue Protonix as previous. 13. BPH; status post TURP - Stable. 14. DVT prophylaxis - Patient is already on rivaroxaban for #5 which will be continued. Total time of the visit including total time spent in counseling or coordination of care, (more than 50% of the total time, spent in obtaining medical information from nurses and other ancillary care providers,explaining to the patient about labs, imaging, diagnosis and management of active complex medical conditions), pneumonia, discussion with pain management clinical update given to daughters present at the bedside, review of labs and imaging is 40 minutes. Charges/Coding Visit Charges Inpatient E&M: 77789 Subs Hosp L3
--- NOTE | 2023-11-02 17:26 | ECHOCS_ITS ---
Reason For Study: SOB Procedure This was a 2D Doppler, Color Flow transthoracic echocardiogram. The study was technically difficult. Contrast injection was performed. Exam performed portable in patient room. Left Ventricle Mild concentric left ventricular hypertrophy. Normal LV size. Left ventricular systolic function is hyperdynamic. The left ventricular ejection fraction is 70 %. Diastolic function is indeterminate. Right Ventricle Normal right ventricle. Atria The left atrium is moderately enlarged. Normal right atrium. Aneurysmal atrial septum. Mitral Valve Trivial mitral valve insufficiency. Tricuspid Valve Mild to moderate (1-2+) tricuspid valve insufficiency. Right ventricular systolic pressure estimated to be 68 mmHg. Severe pulmonary hypertension. Aortic Valve Mild (1+) aortic valve insufficiency. Pulmonic Valve The pulmonic valve is not well visualized. Great Vessels Mildly dilated aortic root. Pericardium/Pleural No pericardial effusion. Medication Diluted definity 2ml given slow IV push to enhance endocardial definition. Performed a rapid injection of agitated mix of 9 cc saline and 1cc air to assess for atrial septal defect. MMode/2D Measurements & Calculations LVIDd: 4.6 cm IVSd: 1.1 cm Ao root diam: 3.7 cm LVIDs: 2.5 cm LVPWd: 1.2 cm LA dimension: 4.4 cm RVDd: 3.7 cm FS: 46.1 % LAV(MOD-bp): 64.5 ml LVAd ap4: 36.3 cm2 SV(MOD-sp4): 90.0 ml LAV(MOD-bp) Indexed: 28.2 ml/m2 LVLd ap4: 7.6 cm LAV(MOD-sp2): 71.3 ml EDV(MOD-sp4): 141.2 ml LAV(MOD-sp4): 54.5 ml EDV(sp4-el): 147.3 ml LVAs ap4: 19.9 cm2 LVLs ap4: 6.7 cm ESV(MOD-sp4): 51.3 ml ESV(sp4-el): 49.9 ml EF(MOD-sp4): 63.7 % EF(sp4-el): 66.1 % SV(sp4-el): 97.3 ml LA A4 area: 19.9 cm2 RA A4 area: 17.6 cm2 TAPSE: 2.5 cm Time Measurements MV dec time: 0.18 sec Doppler Measurements & Calculations MV E max garrison: 47.3 cm/sec Lat Peak E' Garrison: 6.9 cm/sec Med Peak E' Garrison: 6.4 cm/sec MV A max garrison: 66.0 cm/sec E/E' lat: 6.8 E/E' med: 7.4 MV E/A: 0.72 MV V2 max: 86.5 cm/sec MV P1/2t max garrison: 61.2 cm/sec Ao V2 max: 140.4 cm/sec MV max P.0 mmHg MV P1/2t: 71.7 msec Ao max P.9 mmHg MV V2 mean: 42.4 cm/sec Ao V2 mean: 95.9 cm/sec MV mean P.86 mmHg MV dec slope: 250.0 cm/sec2 Ao mean P.2 mmHg MV V2 VTI: 20.6 cm MVA(P1/2t): 3.1 cm2 Ao V2 VTI: 27.5 cm AV (velocity ratio): 0.97 LV V1 max: 127.3 cm/sec PA V2 max: 56.3 cm/sec TR max garrison: 396.1 cm/sec LV V1 max P.5 mmHg TR max P.7 mmHg LV V1 mean P.3 mmHg LV V1 mean: 85.3 cm/sec LV V1 VTI: 26.7 cm ECHO/Echo Complete W/ Contrast Interpretation Summary Mild concentric left ventricular hypertrophy. The left ventricular ejection fraction is 70 %. Diastolic function is indetermi catia. The left atrium is moderately enlarged. Aneurysmal atrial septum. Mild to moderate (1-2+) tricuspid valve insufficiency. Right ventricular systolic pressure estimated to be 68 mmHg. Severe pulmonary hypertension. Mild (1+) aortic valve insufficiency. Mildly dilated aortic root. Ordering Physician: Nii Siegel Referring Physician: William Cespedes Chi Performed By: Elliot Molina RCS
[2023-11-02] MEDS: Rivaroxaban 20 MG Tablet PO (18:08)
[2023-11-02] MEDS: Ceftriaxone 2 GM in 0.9% Normal Saline (50mL MB+) 50 ML IV (18:25)
[2023-11-02] MEDS: guaiFENesin/D-Methorphan TAB.SR.12H 2 TABLET PO (22:14)
[2023-11-02] MEDS: Mirtazapine 15 MG Tablet PO (22:15)
[2023-11-02] MEDS: tiZANidine HCl 2 MG Tablet PO (22:16)
[2023-11-02] MEDS: Acetaminophen 325 MG Tablet 650 MG PO (22:16)
[2023-11-02] MEDS: Lisinopril 40 MG Tablet PO (22:16)
[2023-11-02] MEDS: Latanoprost 0.005% 1 Bottle 1 DRP OPHTHALMIC (22:18)
[2023-11-02] MEDS: MELATONIN 3 MG TABLET PO (22:47)
[2023-11-03] VITALS (13 sets, daily range): BP systolic 93–153; BP diastolic 54–75; PULSE 72–92; RESP 12–28; TEMP 36.1–36.7; O2SAT 82–96; BMI 30.5
[2023-11-03] MEDS: Ipratropium/Albuterol Sulfate 3 ML AMPUL.NEB INHALATION ×3 (05:18→19:45)
[2023-11-03] MEDS: Levothyroxine 88 MCG Tablet PO (05:23)
[2023-11-03] MEDS: BRIMONIDINE 0.15% 5 ML Bottle 1 DRP OPHTHALMIC ×2 (05:23→20:14)
[2023-11-03] MEDS: Carbidopa/Levodopa 25/100 Tablet PO ×2 (05:23→18:10)
[2023-11-03] MEDS: 0.9% Saline Lock 10 ML Syringe IV ×4 (05:33→20:18)
[2023-11-03] MEDS: Ondansetron 4 MG/2 ML Vial IV ×3 (05:33→20:17)
--- NOTE | 2023-11-03 06:10 | RAD_ITS ---
EXAM: XR CHEST, 1 VIEW CLINICAL INDICATION: moist lung sounds TECHNIQUE: Frontal view of the chest. COMPARISON: November 02, 2023, October 31, 2023. FINDINGS: LIMITATIONS: Mild motion blurring. Patient is rotated to the right. Exam is labeled as upright patent does not appear to be with completely upright positioning. LUNGS AND PLEURAL SPACES: Increased hazy opacities at the left lung base superimposed on previously seen discoid atelectasis and increased atelectasis. Mild increased atelectasis or infiltrate in the right lung base. HEART: Unremarkable. Cardiac silhouette not enlarged. MEDIASTINUM: Central airways and mediastinal contour are unremarkable. BONES/JOINTS: Unremarkable. No acute fracture. SOFT TISSUES: Unremarkable. TUBES, LINES AND DEVICES: Stable heart size. Left subclavian pacemaker leads are unchanged. UPPER ABDOMEN: Nonvisualized left hemidiaphragm and left lateral costophrenic angle may be due to adjacent mild effusion. RAD/Chest 1 View (Portable) IMPRESSION: Mild hazy opacities in the lung bases appear increased, greater on the left. Suspicion of mild edema or infiltrate and at least small effusion superimposed on previously seen bands of bibasilar atelectasis. Electronically Signed: Kiya Rivers MD at 6:34 EST ,
[2023-11-03] MEDS: Furosemide 40 MG/4 ML Vial IV ×3 (06:29→18:10)
[2023-11-03 07:19] LABS: Absolute Lymphocyte Count 1.32 X10^3/uL (0.83-4.51); Basophil# 0.06 X10^3/uL; Basophil% 0.6 % (0-1); Eosinophil# 0.04 X10^3/uL; Eosinophils% 0.4 % (0-5); Hematocrit 34.8 % (40-54); Hemoglobin 11.4 g/dL (13.0-16.5); Lymphocyte # 1.32 X10^3/ul (0.83-4.51); Lymphocyte % 13.7 % (19-41); Mean Corp Hgb Conc 32.8 g/dL (32-36); Mean Corpuscular Hgb 28.8 pg (27.0-32.0); Mean Corpuscular Volume 87.9 fL (80-94); Mean Platelet Vol. 10.6 fl (6.2-12.0); Monocyte# 1.02 X10^3/uL; Monocyte% 10.6 % (0-10); NRBC Flagged by Analyzer 0 % (0-5); Neutrophil # 6.97 X10^3/uL (2.7-7.7); Neutrophil % 72.5 % (47-70); Platelet Count 141 K/mm3 (150-450); RBC Distribution Width SD 48.1 fl (35.1-43.9); Red Blood Count 3.96 M/mm3 (4.6-6.2); White Blood Count 9.6 K/mm3 (4.4-11.0)
[2023-11-03 07:42] LABS: Anion Gap 4 (5-15); BUN 12 mg/dL (7-18); BUN/Creat Ratio 13.8 RATIO (10-20); Calcium,Total 8.2 mg/dL (8.5-10.1); Chloride 98 mmol/L (98-107); Creatinine, Serum 0.87 mg/dL (0.70-1.30); EST Glomerular Filtration Rate 88 mL/min (>60); Est Glom Filt Rate - Afr Amer 107 mL/min (>60); Estimated Creatinine Clearance 68.88 ml/min; Glucose 118 mg/dL (74-106); Potassium 3.5 mmol/L (3.5-5.1); Sodium Level 131 mmol/L (136-145)
[2023-11-03 07:47] LABS: BNP,B-Type NATRIURETIC PEPTIDE 438.4 pg/mL (0-100)
[2023-11-03] MEDS: Pantoprazole Sodium 40 MG Tablet PO ×2 (10:01→20:15)
[2023-11-03] MEDS: guaiFENesin/D-Methorphan TAB.SR.12H 2 TABLET PO ×2 (10:01→20:14)
[2023-11-03] MEDS: Sotalol Hydrochloride 80 MG Tablet PO ×2 (10:01→20:12)
[2023-11-03] MEDS: Doxycycline 100 MG CAPSULE PO ×2 (10:02→20:13)
[2023-11-03] MEDS: FLUoxetine 10 MG Capsule PO (10:02)
[2023-11-03] MEDS: Ceftriaxone 2 GM in 0.9% Normal Saline (50mL MB+) 50 ML IV (10:13)
--- NOTE | 2023-11-03 14:45 | PN.HOSP_ITS ---
Reason for Visit Reason for Visit: Diagnoses Pneumonia, unspecified organism (11/01/23) Acute bronchitis, unspecified (11/01/23) Pain in right hip (11/01/23) Lumbago with sciatica, right side (11/01/23) Other abnormalities of breathing (11/01/23) Nausea (11/01/23) Objective Data Objective Data Vital Signs: Vital Signs Temp Pulse Resp BP Pulse Ox O2 Del Method O2 Flow Rate 97.7 F L 79 20 H 140/61 H 94 Nasal Cannula 5 11/03/23 09:44 11/03/23 13:12 11/03/23 13:12 11/03/23 09:44 11/03/23 09:44 11/03/23 09:48 11/03/23 09:48 Oxygen Flow Rate (L/min) 5 Oxygen Delivery Method Nasal Cannula Weight: 231 lb 7.766 oz Body Mass Index (BMI) 30.5 Intake & Output: Intake and Output for Last 24 Hours 11/01/23 11/02/23 11/03/23 23:59 23:59 23:59 Intake Total 2760 / 2760 / 600 / 600 Output Total 900 / 900 700 / 1000 1100 / 1100 Balance 1860 / 1860 1306.25 / 1006.25 -500 / -500 Lab / Micro Data 11/03/23 06:25 11/03/23 06:25 Labs: Laboratory Results - last 24 hr 11/03/23 06:25: WBC 9.6, RBC 3.96 L, Hgb 11.4 L, Hct 34.8 L, MCV 87.9, MCH 28.8, MCHC 32.8, RDW Std Deviation 48.1 H, RDW Coeff of Jefry 15.0 H, Plt Count 141 L, MPV 10.6, Immature Gran % (Auto) 2.200 H, Neut % (Auto) 72.5 H, Lymph % (Auto) 13.7 L, [place] % (Auto) 10.6 H, Eos % (Auto) 0.4, Baso % (Auto) 0.6, Absolute Neuts (auto) 7.0, Absolute Lymphs (auto) 1.32, Nucleated RBC % 0, Sodium 131 L, Potassium 3.5, Chloride 98, Carbon Dioxide 29.0, Anion Gap 4 L, BUN 12, Creatini ne 0.87, Estim Creat Clear Calc 68.88, Est GFR (MDRD) Af Amer 107, Est GFR (MDRD) Non-Af 88, BUN/Creatinine Ratio 13.8, Glucose 118 H, Calcium 8.2 L, B- Natriuretic Peptide 438.4 H Micro: Microbiology 11/01/23 22:07 Urine, Clean Catch Chlamydia trachomatis (PCR) - Final 11/01/23 11:55 Urine, Clean Catch Legionella Antigen - Final 11/01/23 11:55 Urine, Clean Catch Streptococcus pneumoniae Antigen (M - Final 10/31/23 19:24 Mucosa - Nasopharyngeal Respiratory Panel (PCR) - Final 10/31/23 17:23 Nasal Secretion SARS-CoV-2 & FLU Antigen (Rapid) - Final Radiography Diagnostic Testing: Radiology Impression Chest X-Ray 11/03/23 06:10 IMPRESSION: Mild hazy opacities in the lung bases appear increased, greater on the left. Suspicion of mild edema or infiltrate and at least small effusion superimposed on previously seen bands of bibasilar atelectasis. Electronically Signed: Kiya Rivers MD at 6:34 EST , Physical Exam Narrative Seen and examined. 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 Patient feels he is going downhill. Discussed with the patient's daughter near the bedside. Does not have chest pain. Still has bilateral hip pain. No fever. Physical exam General: Alert, Oriented x3, Cooperative HEENT: Atraumatic, PERRLA, EOMI, Normocephalic Oral: No Gingival or Mucosal Lesions/ Ulcerations Neck: Supple, No JVD, Negative Carotid Bruits Lungs: Air entry diminished in bilateral lung bases. Bilateral fine crepitations. Mild dyspnea at rest. On oxygen through nasal cannula Cardiovascular: Regular rate, Regular Rhythm, Normal S1, Normal S2, No murmurs Abdomen: Bowel Sounds Present, Soft, Non Tender, Non-Distended : No dysuria. No renal angle tenderness. No suprapubic tenderness. Extremities: Mild dependent ankle edema, Capillary Refill Less than 3 Seconds Skin: No rashes, No breakdown Musculoskeletal: Mild tenderness over right and left pelvic bone on lateral side. Muscle strength 4+/5, right hip is weaker than left hip mainly due to degenerative arthritis. Neurological: Tremors, Parkinson's disease. Cranial nerves II-XII grossly intact, DTR 2+/4. No acute focal neurological deficit. Psych/Mental Status: Flat affect. Assessment & Plan Assessment/Plan (1) Pneumonia: QUALIFIERS: Laterality: right Lung location: lower lobe of lung Pneumonia type: due to unspecified organism Qualified Code(s): J18.9 - Pneumonia, unspecified organism (2) Acute bronchitis: QUALIFIERS: Bronchitis organism: unspecified organism Qualified Code(s): J20.9 - Acute bronchitis, unspecified (3) Acute respiratory insufficiency: (4) Severe nausea: PLAN: Plan 87-year-old gentleman who was admitted with chief complaint of feeling unwell, generalized weakness nausea, lethargy with decreased oral intake 2 to 3 days. No abdominal pain, no vomiting, no diarrhea. No fever. Patient has a cough. Chronic bilateral lower extremity pain secondary to bilateral sciatica. 1. Mild hypoxia with low suspicion of interstitial pneumonia with small left pleural effusion with bilateral underlying atelectasis, possible nonspecific acute viral syndrome: CT chest individually reviewed. Reticulonodular interstitial thickening with multiple tiny subcentimeter peripheral nodules in the upper lobes. Patient is on IV doxycycline. Changed to oral doxycycline. Aggressive bronchopulmonary hygiene. Mucinex DM. Respiratory panel is negative. Rapid COVID antigen negative. Urinary antigens are ordered Hygiene. Repeat chest x-ray PA and lateral was done which shows increasing infiltration in the lung bases as compared to the previous. Improvement in right lung base infiltrate. Urinary antigens are negative. Patient started on IV ceftriaxone 2 g daily. Lasix 40 mg IV also given as patient clinically seems fluid overload. DuoNeb every 6 hourly. BNP and 2D echo ordered. Rest as mentioned above 11/03: Patient started on scheduled Lasix 40 mg IV twice daily. BNP is elevated. Positive fluid balance about 3.7 L. 2D echo from September 2022 reported EF 55% grade 1 diastolic dysfunction, mild LVH mild AI. Repeat echo done but report pending. Heart core measures. 2. Severe nausea with poor appetite and malaise - Continue supportive care and give IV Zofran as needed for breakthrough nausea. Volume resuscitate and monitor for improvement. Close visit: Nausea is better. 3. Patient has chronic lower back pain, currently bilateral pelvic/hip pain probably positional: From history does not seem current episode of bilateral sciatica pain.: Patient follows with pain management Dr. Lamin Espino and same is consulted. PT/OT and case management. Discussed with Dr. Cruz yesterday and hip injection not indicated. I talked to the about daughters in detail about the nature of hip and thigh pain. 4. Parkinson's disease with tremors and disequilibrium; on Sinemet Continue current treatment as previous. 5. Paroxysmal atrial fibrillation; on rivaroxaban and sotalol - Current occasions to continue. 6. History of coronary artery disease; status post stent - Stable. Continue home medications as previous. 7. Essential hypertension - Resume home regimen plus give as needed IV hydralazine for systolic blood pressure greater than 160 mmHg. 8. Hyperlipidemia - Continue statin and check lipid profile. 9. Hypothyroidism - Resume Synthroid and TSH normal. 10. History of arrhythmia; status post permanent pacemaker (2016) - Noted. 11. History of monoclonal gammopathy of unknown significance - Apparently stable at this time. 12. GERD; with history of gastric ulcer - Continue Protonix as previous. 13. BPH; status post TURP - Stable. 14. DVT prophylaxis - Patient is already on rivaroxaban for #5 which will be continued. Total time of the visit including total time spent in counseling or coordination of care, (more than 50% of the total time, spent in obtaining medical information from nurses and other ancillary care providers,explaining to the patient about labs, imaging, diagnosis and management of active complex medical conditions), pneumonia, discussion with pain management clinical update given to daughters present at the bedside, review of labs and imaging is 40 minutes. Discussed about the CODE STATUS and prognosis. Patient going downhill the prognosis guarded but for elderly people, is hard to ascertain overall future course of illness. Charges/Coding Visit Charges Inpatient E&M: 15699 Subs Hosp L2
[2023-11-03] MEDS: Acetaminophen 325 MG Tablet 650 MG PO ×2 (15:29→22:40)
--- NOTE | 2023-11-03 15:30 | NURSING ---
AROUND 1530 PT C/O HAVING ABOUT 15 SECOND EPISODE OF DOUBLE VISION- CALL THIS RN AND VS OBTAINED AND WNL- PT WAS SITTING UP IN CHAIR AND HAD BEEN THERE FOR A COUPLE HRS- HAD AT BREATHING TX ABOUT 2 HOURS PRIOR- DR HEATH NOTIFIED AND PT ALSO C/O HEADACHE AT THE TIME AND TYLENOL GIVEN. DR HEATH WANTED TO KNOW IF IT HAPPENS AGAIN TO LET HIM KNOW- TYLENOL RESOLVED MULTANI LATER. NO NEW EPISODES SINCE.
[2023-11-03] MEDS: proMETHazine 25 MG/ML Syringe IM (15:39)
[2023-11-03 16:09] LABS: Lyme Scn Total Ab w/Rflx Negative (Negative)
--- NOTE | 2023-11-03 17:00 | CASEMGMT ---
RN CM in to discuss plans at discharge. RN CM discussed possible HHC at discharge, list provided. Daughter at bedside, patietn and family to discuss preferences for HHC. Patient stated it took 2 people to get patient to chair today. RN CM discuss possible need at discharge. Patient willing to go to SNF if needed. Will monitor progress with therapy. CM will continue to follow this patient and plan for a safe discharge.
[2023-11-03] MEDS: Rivaroxaban 20 MG Tablet PO (18:10)
[2023-11-03] MEDS: Latanoprost 0.005% 1 Bottle 1 DRP OPHTHALMIC ×2 (20:13→20:14)
[2023-11-03] MEDS: MELATONIN 3 MG TABLET PO (20:13)
[2023-11-03] MEDS: tiZANidine HCl 2 MG Tablet PO (20:16)
[2023-11-03] MEDS: Mirtazapine 15 MG Tablet PO (20:16)
[2023-11-03] MEDS: Lisinopril 40 MG Tablet PO (20:17)
[2023-11-04] VITALS (18 sets, daily range): BP systolic 100–142; BP diastolic 45–74; PULSE 69–79; RESP 12–32; TEMP 36.2–36.8; O2SAT 86–97; BMI 30.4; BMI 30.2
[2023-11-04] MEDS: 0.9% Saline Lock 10 ML Syringe IV ×4 (04:51→17:48)
[2023-11-04] MEDS: Ondansetron 4 MG/2 ML Vial IV ×2 (04:51→14:44)
[2023-11-04] MEDS: BRIMONIDINE 0.15% 5 ML Bottle 1 DRP OPHTHALMIC ×2 (06:49→21:28)
[2023-11-04] MEDS: Levothyroxine 88 MCG Tablet PO (06:49)
[2023-11-04] MEDS: Carbidopa/Levodopa 25/100 Tablet PO ×3 (06:49→17:47)
[2023-11-04 06:52] LABS: Absolute Lymphocyte Count 1.39 X10^3/uL (0.83-4.51); Absolute Neutrophil Count 7.6 X10^3/uL (2.0-7.7); Basophil# 0.07 X10^3/uL; Basophil% 0.7 % (0-1); Eosinophil# 0.09 X10^3/uL; Eosinophils% 0.8 % (0-5); Hematocrit 34.4 % (40-54); Hemoglobin 11.5 g/dL (13.0-16.5); Lymphocyte # 1.39 X10^3/ul (0.83-4.51); Lymphocyte % 13.1 % (19-41); Mean Corp Hgb Conc 33.4 g/dL (32-36); Mean Corpuscular Hgb 28.9 pg (27.0-32.0); Mean Corpuscular Volume 86.4 fL (80-94); Mean Platelet Vol. 10.6 fl (6.2-12.0); Monocyte# 1.19 X10^3/uL; Monocyte% 11.2 % (0-10); NRBC Flagged by Analyzer 0 % (0-5); Neutrophil # 7.63 X10^3/uL (2.7-7.7); Neutrophil % 71.8 % (47-70); Platelet Count 136 K/mm3 (150-450); RBC Distribution Width CV 15.1 % (11.6-14.6); RBC Distribution Width SD 47.4 fl (35.1-43.9); Red Blood Count 3.98 M/mm3 (4.6-6.2); White Blood Count 10.6 K/mm3 (4.4-11.0)
[2023-11-04 07:15] LABS: Anion Gap 5 (5-15); BUN 16 mg/dL (7-18); BUN/Creat Ratio 15.8 RATIO (10-20); Chloride 94 mmol/L (98-107); Creatinine, Serum 1.01 mg/dL (0.70-1.30); EST Glomerular Filtration Rate 74 mL/min (>60); Est Glom Filt Rate - Afr Amer 90 mL/min (>60); Estimated Creatinine Clearance 59.33 ml/min; Glucose 108 mg/dL (74-106); Potassium 3.2 mmol/L (3.5-5.1); Sodium Level 130 mmol/L (136-145)
[2023-11-04] MEDS: Ipratropium/Albuterol Sulfate 3 ML AMPUL.NEB INHALATION ×3 (07:20→19:03)
--- NOTE | 2023-11-04 08:49 | PCM.PN.HOSP ---
Reason for Visit Reason for Visit: Diagnoses Pneumonia, unspecified organism (11/01/23) Acute bronchitis, unspecified (11/01/23) Pain in right hip (11/01/23) Lumbago with sciatica, right side (11/01/23) Other abnormalities of breathing (11/01/23) Nausea (11/01/23) Objective Data Objective Data Vital Signs: Vital Signs Temp Pulse Resp BP Pulse Ox O2 Del Method O2 Flow Rate 97.9 F 79 20 H 132/71 H 97 High Flow 7 11/04/23 08:15 11/04/23 08:15 11/04/23 08:15 11/04/23 08:15 11/04/23 08:15 11/04/23 08:15 11/03/23 22:00 FiO2 50 11/04/23 04:30 Oxygen Flow Rate (L/min) 7 Oxygen Delivery Method High Flow Weight: 231 lb 4.238 oz Body Mass Index (BMI) 30.4 Intake & Output: Intake and Output for Last 24 Hours 11/02/23 11/03/23 11/04/23 23:59 23:59 23:59 Intake Total / 950 / 1350 520 / 520 Output Total 700 / 1000 1900 / 2550 1050 / 1050 Balance 1306.25 / 1006.25 -950 / -1200 -530 / -530 Lab / Micro Data 11/04/23 06:30 11/04/23 06:30 Labs: Laboratory Results - last 24 hr 11/02/23 04:52: Lyme Total Antibody Negative 11/04/23 06:30: WBC 10.6, RBC 3.98 L, Hgb 11.5 L, Hct 34.4 L, MCV 86.4, MCH 28.9, MCHC 33.4, RDW Std Deviation 47.4 H, RDW Coeff of Jefry 15.1 H, Plt Count 136 L, MPV 10.6, Immature Gran % (Auto) 2.400 H, Neut % (Auto) 71.8 H, Lymph % (Auto) 13.1 L, [place] % (Auto) 11.2 H, Eos % (Auto) 0.8, Baso % (Auto) 0.7, Absolute Neuts (auto) 7.6, Absolute Lymphs (auto) 1.39, Nucleated RBC % 0, Sodium 130 L, Potassium 3.2 L, Chloride 94 L, Carbon Dioxide 31.0, Anion Gap 5, BUN 16, Creatinine 1.01, Estim Creat Clear Calc 59.33, Est GFR (MDRD) Af Amer 90, Est GFR (MDRD) Non-Af 74, BUN/Creatinine Ratio 15.8, Glucose 108 H, Calcium 8.0 L Micro: Microbiology 11/01/23 22:07 Urine, Clean Catch Chlamydia trachomatis (PCR) - Final 11/01/23 11:55 Urine, Clean Catch Legionella Antigen - Final 11/01/23 11:55 Urine, Clean Catch Streptococcus pneumoniae Antigen (M - Final 10/31/23 19:24 Mucosa - Nasopharyngeal Respiratory Panel (PCR) - Final 10/31/23 17:23 Nasal Secretion SARS-CoV-2 & FLU Antigen (Rapid) - Final Radiography Diagnostic Testing: Radiology Impression Echocardiogram 11/02/23 17:26 Interpretation Summary Mild concentric left ventricular hypertrophy. The left ventricular ejection fraction is 70 %. Diastolic function is indeterminate. The left atrium is moderately enlarged. Aneurysmal atrial septum. Mild to moderate (1-2+) tricuspid valve insufficiency. Right ventricular systolic pressure estimated to be 68 mmHg. Severe pulmonary hypertension. Mild (1+) aortic valve insufficiency. Mildly dilated aortic root. Ordering Physician: Nii Siegel Referring Physician: William Cespedes Chi Performed By: Elliot Molina RCS Physical Exam Narrative Seen and examined. Patient was put on BiPAP yesterday night and today feels better. He said he had also better sleep. Currently pulse ox 94% on 6 L of oxygen. Was on high flow 8 L of oxygen in the morning. Discussed with the patient's daughter near the bedside. Does not have chest pain. bilateral hip pain is better. No fever. Physical exam General: Alert, Oriented x3, Cooperative HEENT: Atraumatic, PERRLA, EOMI, Normocephalic Oral: No Gingival or Mucosal Lesions/ Ulcerations Neck: Supple, No JVD, Negative Carotid Bruits Lungs: Air entry diminished in bilateral lung bases. Mild coarse crepitations. On oxygen through nasal cannula Cardiovascular: Regular rate, Regular Rhythm, Normal S1, Normal S2, No murmurs Abdomen: Bowel Sounds Present, Soft, Non Tender, Non-Distended : No dysuria. No renal angle tenderness. No suprapubic tenderness. Extremities: Mild dependent ankle edema, Capillary Refill Less than 3 Seconds Skin: No rashes, No breakdown Musculoskeletal: No tenderness over right and left pelvic bone on lateral side. Muscle strength 4+/5, right hip is weaker than left hip mainly due to degenerative arthritis. Neurological: Tremors, Parkinson's disease. Cranial nerves II-XII grossly intact, DTR 2+/4. No acute focal neurological deficit. Psych/Mental Status: Flat affect. Assessment & Plan Assessment/Plan (1) Pneumonia: QUALIFIERS: Laterality: right Lung location: lower lobe of lung Pneumonia type: due to unspecified organism Qualified Code(s): J18.9 - Pneumonia, unspecified organism (2) Acute bronchitis: QUALIFIERS: Bronchitis organism: unspecified organism Qualified Code(s): J20.9 - Acute bronchitis, unspecified (3) Acute respiratory insufficiency: (4) Severe nausea: PLAN: Plan 87-year-old gentleman who was admitted with chief complaint of feeling unwell, generalized weakness nausea, lethargy with decreased oral intake 2 to 3 days. No abdominal pain, no vomiting, no diarrhea. No fever. Patient has a cough. Chronic bilateral lower extremity pain secondary to bilateral sciatica. 1. Acute hypoxic respiratory failure, exact etiology unclear multifactorial probably acute on chronic HFpEF and severe pulmonary hypertension, interstitial pneumonia with small left pleural effusion with bilateral underlying atelectasis, possible nonspecific acute viral syndrome: CT chest individually reviewed. Reticulonodular interstitial thickening with multiple tiny subcentimeter peripheral nodules in the upper lobes. Patient is on IV doxycycline. Changed to oral doxycycline. Aggressive bronchopulmonary hygiene. Mucinex DM. Respiratory panel is negative. Rapid COVID antigen negative. Urinary antigens are ordered Hygiene. Repeat chest x-ray PA and lateral was done which shows increasing infiltration in the lung bases as compared to the previous. Improvement in right lung base infiltrate. Urinary antigens are negative. Patient started on IV ceftriaxone 2 g daily. Lasix 40 mg IV also given as patient clinically seems fluid overload. DuoNeb every 6 hourly. BNP and 2D echo ordered. Rest as mentioned above 11/03: Patient started on scheduled Lasix 40 mg IV twice daily. BNP is elevated. Positive fluid balance about 3.7 L. 2D echo from September 2022 reported EF 55% grade 1 diastolic dysfunction, mild LVH mild AI. Repeat echo done but report pending. Heart core measures. 11/04: Patient was on BiPAP 50% FiO2 last night and currently on high flow oxygen. Repeat x-ray shows increase in the infiltrate in left lung base and atelectasis. Continue BiPAP at night. Serum sodium dropped to 130, potassium 3.2 on diuretic. Started on spironolactone 25 mg daily for hypokalemia and heart failure. 2D echo shows EF 70% LA moderately enlarged 1-2+ TR, 1+ AI, RVSP 68 mmHg consistent with severe pulmonary hypertension 2. Severe nausea with poor appetite and malaise - Continue supportive care and give IV Zofran as needed for breakthrough nausea. Volume resuscitate and monitor for improvement. Close visit: Nausea is better. 3. Patient has chronic lower back pain, currently bilateral pelvic/hip pain probably positional: From history does not seem current episode of bilateral sciatica pain.: Patient follows with pain management Dr. Lamin Espino and same is consulted. PT/OT and case management. Discussed with Dr. Cruz yesterday and hip injection not indicated. I talked to the about daughters in detail about the nature of hip and thigh pain. 4. Parkinson's disease with tremors and disequilibrium; on Sinemet Continue current treatment as previous. 5. Paroxysmal atrial fibrillation; on rivaroxaban and sotalol - Current occasions to continue. 6. History of coronary artery disease; status post stent - Stable. Continue home medications as previous. 7. Essential hypertension - Resume home regimen plus give as needed IV hydralazine for systolic blood pressure greater than 160 mmHg. 8. Hyperlipidemia - Continue statin and check lipid profile. 9. Hypothyroidism - Resume Synthroid and TSH normal. 10. History of arrhythmia; status post permanent pacemaker (2016) - Noted. 11. History of monoclonal gammopathy of unknown significance - Apparently stable at this time. 12. GERD; with history of gastric ulcer - Continue Protonix as previous. 13. BPH; status post TURP - Stable. 14. DVT prophylaxis - Patient is already on rivaroxaban for #5 which will be continued. Total time of the visit including total time spent in counseling or coordination of care, (more than 50% of the total time, spent in obtaining medical information from nurses and other ancillary care providers,explaining to the patient about labs, imaging, diagnosis and management of active complex medical conditions), pneumonia, discussion with pain management clinical update given to daughters present at the bedside, review of labs and imaging is 40 minutes. Discussed about the CODE STATUS and prognosis. Patient going downhill the prognosis guarded but for elderly people, is hard to ascertain overall future course of illness. 2D echo Interpretation Summary Mild concentric left ventricular hypertrophy. The left ventricular ejection fraction is 70 %. Diastolic function is indeterminate. The left atrium is moderately enlarged. Aneurysmal atrial septum. Mild to moderate (1-2+) tricuspid valve insufficiency. Right ventricular systolic pressure estimated to be 68 mmHg. Severe pulmonary hypertension. Mild (1+) aortic valve insufficiency. Charges/Coding Visit Charges Inpatient E&M: 07305 Subs Hosp L2
[2023-11-04] MEDS: Sotalol Hydrochloride 80 MG Tablet PO ×2 (09:38→21:29)
[2023-11-04] MEDS: Pantoprazole Sodium 40 MG Tablet PO ×2 (09:44→21:30)
[2023-11-04] MEDS: Doxycycline 100 MG CAPSULE PO ×2 (09:44→21:30)
[2023-11-04] MEDS: FLUoxetine 10 MG Capsule PO (09:46)
[2023-11-04] MEDS: Polyethylene Glycol 3350 17 GM PACKET PO (09:48)
[2023-11-04] MEDS: Ceftriaxone 2 GM in 0.9% Normal Saline (50mL MB+) 50 ML IV (09:58)
[2023-11-04] MEDS: Furosemide 40 MG/4 ML Vial IV ×2 (09:59→17:48)
[2023-11-04] MEDS: guaiFENesin/D-Methorphan TAB.SR.12H 2 TABLET PO ×2 (11:42→21:30)
[2023-11-04] MEDS: Spironolactone 25 MG Tablet PO (15:19)
[2023-11-04] MEDS: Rivaroxaban 20 MG Tablet PO (17:47)
[2023-11-04] MEDS: proMETHazine 25 MG/ML Syringe IM (19:37)
[2023-11-04] MEDS: Latanoprost 0.005% 1 Bottle 1 DRP OPHTHALMIC (21:27)
[2023-11-04] MEDS: MELATONIN 3 MG TABLET PO (21:30)
[2023-11-04] MEDS: Mirtazapine 15 MG Tablet PO (21:31)
[2023-11-04] MEDS: tiZANidine HCl 2 MG Tablet PO (21:31)
[2023-11-04] MEDS: Lisinopril 40 MG Tablet PO (21:32)
--- NOTE | 2023-11-04 22:16 | CPS ---
Attempted PAP therapy with patient. However patient didn't tolerate. Tried adjusting settings for pt comfort, Pt now refusing.
[2023-11-05] VITALS (14 sets, daily range): BP systolic 120–131; BP diastolic 54–62; PULSE 70–87; RESP 12–26; TEMP 36.5–36.6; O2SAT 90–96; BMI 30.2
[2023-11-05] MEDS: Ipratropium/Albuterol Sulfate 3 ML AMPUL.NEB INHALATION ×4 (01:51→19:07)
[2023-11-05] MEDS: Levothyroxine 88 MCG Tablet PO (05:31)
--- NOTE | 2023-11-05 06:43 | NURSING ---
Pt's family refused to allow staff to awaken pt for sinemet and alphagan at this time states he just got to sleep again, can't he just take them later? Will discuss with oncoming nurse
[2023-11-05] MEDS: BRIMONIDINE 0.15% 5 ML Bottle 1 DRP OPHTHALMIC ×2 (07:21→21:34)
--- NOTE | 2023-11-05 07:49 | RAD_ITS ---
STUDY: XR Chest 2 Views 11/05/2023 7:46 AM REASON FOR EXAM: Male, 87 years old. sob, heart failure COMPARISON: Two days ago. TECHNIQUE: XR Chest 2 Views FINDINGS: There is right pleural effusions. There are bilateral infiltrates. There is a left sided pacemaker batterypack. Enlarged heart size. Normal mediastinum. Normal zeny. Prominent appearing increased interstitial lung markings. Normal visualized pulmonary arteries. There is atherosclerotic calcification of the aortic arch with tortuosity. There are diffuse degenerative changes of the visualized thoracic spine. There is degenerative osteoarthritis of the bilateral shoulders. There are no acute findings of the upper abdomen. RAD/Chest PA and Lateral IMPRESSION: Pulmonary findings appear improved. Electronically Signed: Cezar Galdamez MD at 15:43 EST ,
[2023-11-05] MEDS: 0.9% Saline Lock 10 ML Syringe IV ×3 (09:10→18:31)
[2023-11-05] MEDS: Ondansetron 4 MG/2 ML Vial IV ×2 (09:11→18:31)
[2023-11-05] MEDS: Spironolactone 25 MG Tablet PO (09:14)
[2023-11-05] MEDS: Carbidopa/Levodopa 25/100 Tablet PO ×2 (09:14→16:20)
[2023-11-05] MEDS: Pantoprazole Sodium 40 MG Tablet PO ×2 (09:14→21:35)
[2023-11-05] MEDS: Doxycycline 100 MG CAPSULE PO (09:14)
[2023-11-05] MEDS: guaiFENesin/D-Methorphan TAB.SR.12H 2 TABLET PO ×2 (09:15→21:35)
--- NOTE | 2023-11-05 09:50 | PN.HOSP_ITS ---
Reason for Visit Reason for Visit: Diagnoses Pneumonia, unspecified organism (11/01/23) Acute bronchitis, unspecified (11/01/23) Pain in right hip (11/01/23) Lumbago with sciatica, right side (11/01/23) Other abnormalities of breathing (11/01/23) Nausea (11/01/23) Objective Data Objective Data Vital Signs: Vital Signs Temp Pulse Resp BP Pulse Ox O2 Del Method O2 Flow Rate 97.7 F L 70 18 131/62 H 96 Nasal Cannula 6 11/05/23 09:10 11/05/23 09:10 11/05/23 09:10 11/05/23 09:10 11/05/23 09:10 11/05/23 09:10 11/05/23 09:10 FiO2 50 11/05/23 04:46 Oxygen Flow Rate (L/min) [ 6 AMBULATING with Oxygen #3] Oxygen Flow Rate (L/min) [ 4 AMBULATING with Oxygen #2] Oxygen Flow Rate (L/min) [ 2 AMBULATING with Oxygen #1] Oxygen Flow Rate (L/min) [ 0 AMBULATING on Room Air] Oxygen Flow Rate (L/min) [At 0 REST on Room Air] Oxygen Flow Rate (L/min) 6 Oxygen Delivery Method Nasal Cannula Weight: 229 lb 8.019 oz Body Mass Index (BMI) 30.2 Intake & Output: Intake and Output for Last 24 Hours 11/03/23 11/04/23 11/05/23 23:59 23:59 23:59 Intake Total 950 / 1350 810 / 1050 360 / 360 Output Total 1900 / 2550 1850 / 3100 1550 / 1550 Balance -950 / -1200 -1040 / -2050 -1190 / -1190 Lab / Micro Data 11/05/23 10:25 11/05/23 10:25 Micro: Microbiology 11/04/23 12:45 Stool Enteric Bacteriology - Final 11/01/23 22:07 Urine, Clean Catch Chlamydia trachomatis (PCR) - Final 11/01/23 11:55 Urine, Clean Catch Legionella Antigen - Final 11/01/23 11:55 Urine, Clean Catch Streptococcus pneumoniae Antigen (M - Final 10/31/23 19:24 Mucosa - Nasopharyngeal Respiratory Panel (PCR) - Final 10/31/23 17:23 Nasal Secretion SARS-CoV-2 & FLU Antigen (Rapid) - Final Physical Exam Narrative Seen and examined. Patient could not tolerate BiPAP yesterday and then was repeated putting on and off. Still short of breath. On 4 to 6 L of oxygen. e. Discussed with the patient's daughter near the bedside. Does not have chest pain. bilateral hip pain is better. No fever.Overall does not feel good. Patient's family wanted palliative/hospice car Physical exam General: Alert, Oriented x3, Cooperative, lethargic HEENT: Atraumatic, PERRLA, EOMI, Normocephalic Oral: No Gingival or Mucosal Lesions/ Ulcerations Neck: Supple, No JVD, Negative Carotid Bruits Lungs: Air entry diminished in bilateral lung bases. No crepitations but mild rhonchi. On oxygen through nasal cannula Cardiovascular: Regular rate, Regular Rhythm, Normal S1, Normal S2, No murmurs Abdomen: Bowel Sounds Present, Soft, Non Tender, Non-Distended : No dysuria. No renal angle tenderness. No suprapubic tenderness. Extremities: Mild dependent ankle edema, Capillary Refill Less than 3 Seconds Skin: No rashes, No breakdown Musculoskeletal: No tenderness over right and left pelvic bone on lateral side. Muscle strength 4+/5, right hip is weaker than left hip mainly due to degenerative arthritis. Neurological: Tremors, Parkinson's disease. Cranial nerves II-XII grossly intact, DTR 2+/4. No acute focal neurological deficit. Psych/Mental Status: Flat affect. Assessment & Plan Assessment/Plan (1) Pneumonia: QUALIFIERS: Laterality: right Lung location: lower lobe of lung Pneumonia type: due to unspecified organism Qualified Code(s): J18.9 - Pneumonia, unspecified organism (2) Acute bronchitis: QUALIFIERS: Bronchitis organism: unspecified organism Qualified Code(s): J20.9 - Acute bronchitis, unspecified (3) Acute respiratory insufficiency: (4) Severe nausea: PLAN: Plan 87-year-old gentleman who was admitted with chief complaint of feeling unwell, generalized weakness nausea, lethargy with decreased oral intake 2 to 3 days. No abdominal pain, no vomiting, no diarrhea. No fever. Patient has a cough. C hronic bilateral lower extremity pain secondary to bilateral sciatica. 1. Acute hypoxic respiratory failure, exact etiology unclear multifactorial probably acute on chronic HFpEF and severe pulmonary hypertension, interstitial pneumonia with small left pleural effusion with bilateral underlying atelectasis, possible nonspecific acute viral syndrome: CT chest individually reviewed. Reticulonodular interstitial thickening with multiple tiny subcentimeter peripheral nodules in the upper lobes. Patient is on IV doxycycline. Changed to oral doxycycline. Aggressive bronchopulmonary hygiene. Mucinex DM. Respiratory panel is negative. Rapid COVID antigen negative. Urinary antigens are ordered Hygiene. Repeat chest x-ray PA and lateral was done which shows increasing infiltration in the lung bases as compared to the previous. Improvement in right lung base infiltrate. Urinary antigens are negative. Patient started on IV ceftriaxone 2 g daily. Lasix 40 mg IV also given as patient clinically seems fluid overload. DuoNeb every 6 hourly. BNP and 2D echo ordered. Rest as menti oned above 11/03: Patient started on scheduled Lasix 40 mg IV twice daily. BNP is elevated. Positive fluid balance about 3.7 L. 2D echo from September 2022 reported EF 55% grade 1 diastolic dysfunction, mild LVH mild AI. Repeat echo done but report pending. Heart core measures. 11/04: Patient was on BiPAP 50% FiO2 last night and currently on high flow oxygen. Repeat x-ray shows increase in the infiltrate in left lung base and atelectasis. Continue BiPAP at night. Serum sodium dropped to 130, potassium 3.2 on diuretic. Started on spironolactone 25 mg daily for hypokalemia and heart failure. 2D echo shows EF 70% LA moderately enlarged 1-2+ TR, 1+ AI, RVSP 68 mmHg consistent with severe pulmonary hypertension 11/05: In the morning patient looks good, respiratory rate 18 but patient was tachypneic last night chest x-ray ordered. Repeat chest x-ray Not is any reported yet but individually reviewed and shows increase in the infiltrates and marking mainly in the left lower lobe. The findings were discussed with the patient's 2 daughters at the bedside and worsening of chest x-ray. Patient on all possible medical management including diuretic, bronchodilator, antibiotic incentive spirometry. Discussed with respiratory. Vest therapy requested. Overall patient's daughter does not want intubation ventilator or aggressive measures but hospice care consult. CODE STATUS changed to DNR CC. Patient also seems to be in grief as his passed recently. 2. Severe nausea with poor appetite and malaise - Continue supportive care and give IV Zofran as needed for breakthrough nausea. Volume resuscitate and monitor for improvement. Close visit: Nausea is better. 3. Patient has chronic lower back pain, currently bilateral pelvic/hip pain probably positional: From history does not seem current episode of bilateral sciatica pain.: Patient follows with pain management Dr. Lamin Espino and same is consulted. PT/OT and case management. Discussed with Dr. Cruz yes terday and hip injection not indicated. 4. Parkinson's disease with tremors and disequilibrium; on Sinemet Continue current treatment as previous. 5. Paroxysmal atrial fibrillation; on rivaroxaban and sotalol - Current occasions to continue. 6. History of coronary artery disease; status post stent - Stable. Continue home medications as previous. 7. Essential hypertension - Resume home regimen plus give as needed IV hydralazine for systolic blood pressure greater than 160 mmHg. 8. Hyperlipidemia - Continue statin and check lipid profile. 9. Hypothyroidism - Resume Synthroid and TSH normal. 10. History of arrhythmia; status post permanent pacemaker (2016) - Noted. 11. History of monoclonal gammopathy of unknown significance - Apparently stable at this time. 12. GERD; with history of gastric ulcer - Continue Protonix as previous. 13. BPH; status post TURP - Stable. 14. DVT prophylaxis - Patient is already on rivaroxaban for #5 which will be continued. Total time of the visit including total time spent in counseling or coordination of care, (more than 50% of the total time, spent in obtaining medical information from nurses and other ancillary care providers,explaining to the patient about labs, imaging, diagnosis and management of active complex medical conditions), pneumonia, discussion with pain management clinical update given to daughters present at the bedside, review of labs and imaging is 40 minutes. Discussed about the CODE STATUS and prognosis. Patient going downhill the prognosis guarded but for elderly people, is hard to ascertain overall future course of illness. 2D echo Interpretation Summary Mild concentric left ventricular hypertrophy. The left ventricular ejection fraction is 70 %. Diastolic function is indeterminate. The left atrium is moderately enlarged. Aneurysmal atrial septum. Mild to moderate (1-2+) tricuspid valve insufficiency. Right ventricular systolic pressure estimated to be 68 mmHg. Severe pulmonary hypertension. Mild (1+) aortic valve insufficiency. Charges/Coding Addendum Addendum: Total time of the visit including total time spent in counseling or coordination of care, (more than 50% of the total time, spent in obtaining medical information from nurses and other ancillary care providers,explaining to the patient about labs, imaging, diagnosis and management of active complex medical conditions), discussion with the daughter, repeat chest x-ray, personally hospice care, review of labs and imaging is 45 minutes. Visit Charges Inpatient E&M: 29995 Subs Hosp L3 Procedures Hospitalists Procedures: 47354 Advncd Care Plan 30 Min
[2023-11-05 10:40] LABS: Basophil# 0.04 X10^3/uL; Basophil% 0.4 % (0-1); Eosinophil# 0.07 X10^3/uL; Eosinophils% 0.7 % (0-5); Hematocrit 35.1 % (40-54); Hemoglobin 11.8 g/dL (13.0-16.5); Lymphocyte % 11.7 % (19-41); Mean Corp Hgb Conc 33.6 g/dL (32-36); Mean Corpuscular Hgb 28.8 pg (27.0-32.0); Mean Corpuscular Volume 85.6 fL (80-94); Mean Platelet Vol. 9.9 fl (6.2-12.0); Monocyte# 0.93 X10^3/uL; Monocyte% 9.9 % (0-10); NRBC Flagged by Analyzer 0 % (0-5); Neutrophil # 7.03 X10^3/uL (2.7-7.7); Platelet Count 136 K/mm3 (150-450); RBC Distribution Width CV 14.7 % (11.6-14.6); RBC Distribution Width SD 46.1 fl (35.1-43.9); White Blood Count 9.4 K/mm3 (4.4-11.0)
[2023-11-05 10:48] LABS: Anion Gap 4 (5-15); BUN 16 mg/dL (7-18); BUN/Creat Ratio 16.5 RATIO (10-20); Calcium,Total 8.2 mg/dL (8.5-10.1); Chloride 90 mmol/L (98-107); Creatinine, Serum 0.97 mg/dL (0.70-1.30); EST Glomerular Filtration Rate 78 mL/min (>60); Est Glom Filt Rate - Afr Amer 94 mL/min (>60); Estimated Creatinine Clearance 61.78 ml/min; Glucose 159 mg/dL (74-106); Potassium 3.3 mmol/L (3.5-5.1); Sodium Level 128 mmol/L (136-145)
[2023-11-05] MEDS: FLUoxetine 10 MG Capsule PO (10:58)
[2023-11-05] MEDS: Sotalol Hydrochloride 80 MG Tablet PO ×2 (10:58→21:34)
[2023-11-05] MEDS: Furosemide 40 MG/4 ML Vial IV ×2 (10:59→18:31)
[2023-11-05] MEDS: Ceftriaxone 2 GM in 0.9% Normal Saline (50mL MB+) 50 ML IV (10:59)
[2023-11-05] MEDS: Potassium Chloride Oral Tablet 20 MEQ 40 MEQ PO (16:20)
[2023-11-05] MEDS: Rivaroxaban 20 MG Tablet PO (16:20)
[2023-11-05] MEDS: MELATONIN 3 MG TABLET PO (21:35)
[2023-11-05] MEDS: Latanoprost 0.005% 1 Bottle 1 DRP OPHTHALMIC (21:36)
[2023-11-05] MEDS: tiZANidine HCl 2 MG Tablet PO (21:36)
[2023-11-05] MEDS: Mirtazapine 15 MG Tablet PO (21:36)
[2023-11-05] MEDS: Lisinopril 40 MG Tablet PO (21:36)
--- NOTE | 2023-11-05 23:43 | CPS ---
Bipap placed on patient by RN, patient now off. Was unable to tolerate. Now on 6L 90%
[2023-11-06] VITALS (11 sets, daily range): BP systolic 129–148; BP diastolic 50–66; PULSE 72–89; RESP 12–32; TEMP 36.7–37.2; O2SAT 90–96; BMI 30.2
[2023-11-06] MEDS: Ipratropium/Albuterol Sulfate 3 ML AMPUL.NEB INHALATION ×4 (01:46→19:10)
[2023-11-06] MEDS: Levothyroxine 88 MCG Tablet PO (06:33)
[2023-11-06] MEDS: BRIMONIDINE 0.15% 5 ML Bottle 1 DRP OPHTHALMIC (06:34)
[2023-11-06 06:52] LABS: Absolute Lymphocyte Count 1.31 X10^3/uL (0.83-4.51); Absolute Neutrophil Count 6.7 X10^3/uL (2.0-7.7); Basophil# 0.09 X10^3/uL; Basophil% 0.9 % (0-1); Eosinophil# 0.04 X10^3/uL; Eosinophils% 0.4 % (0-5); Hematocrit 36.5 % (40-54); Hemoglobin 11.8 g/dL (13.0-16.5); Lymphocyte # 1.31 X10^3/ul (0.83-4.51); Lymphocyte % 13.7 % (19-41); Mean Corp Hgb Conc 32.3 g/dL (32-36); Mean Corpuscular Hgb 28.1 pg (27.0-32.0); Mean Corpuscular Volume 86.9 fL (80-94); Monocyte# 1.01 X10^3/uL; Monocyte% 10.6 % (0-10); NRBC Flagged by Analyzer 0 % (0-5); Neutrophil # 6.71 X10^3/uL (2.7-7.7); Neutrophil % 70.1 % (47-70); Platelet Count 133 K/mm3 (150-450); RBC Distribution Width CV 14.6 % (11.6-14.6); RBC Distribution Width SD 46.5 fl (35.1-43.9); White Blood Count 9.6 K/mm3 (4.4-11.0)
--- NOTE | 2023-11-06 06:53 | CPS ---
PT CURRENTLY REFUSING CHEST VEST
[2023-11-06 07:11] LABS: Anion Gap 5 (5-15); BUN 18 mg/dL (7-18); Calcium,Total 8.4 mg/dL (8.5-10.1); Chloride 90 mmol/L (98-107); EST Glomerular Filtration Rate 85 mL/min (>60); Est Glom Filt Rate - Afr Amer 103 mL/min (>60); Estimated Creatinine Clearance 66.58 ml/min; Glucose 119 mg/dL (74-106); Potassium 3.3 mmol/L (3.5-5.1); Sodium Level 130 mmol/L (136-145)
[2023-11-06] MEDS: guaiFENesin/D-Methorphan TAB.SR.12H 2 TABLET PO (09:06)
[2023-11-06] MEDS: Carbidopa/Levodopa 25/100 Tablet PO (09:06)
[2023-11-06] MEDS: Potassium Chloride Oral Tablet 20 MEQ 40 MEQ PO (09:07)
[2023-11-06] MEDS: Pantoprazole Sodium 40 MG Tablet PO (09:07)
[2023-11-06] MEDS: FLUoxetine 10 MG Capsule PO (09:07)
[2023-11-06] MEDS: Sotalol Hydrochloride 80 MG Tablet PO ×2 (09:08→20:21)
[2023-11-06] MEDS: Ceftriaxone 2 GM in 0.9% Normal Saline (50mL MB+) 50 ML IV (09:09)
[2023-11-06] MEDS: Furosemide 40 MG/4 ML Vial IV ×2 (09:10→17:00)
[2023-11-06] MEDS: Spironolactone 50 MG Tablet PO (10:31)
[2023-11-06 10:43] LABS: BNP,B-Type NATRIURETIC PEPTIDE 222.5 pg/mL (0-100)
[2023-11-06 10:49] LABS: Procalcitonin 0.14 ng/mL (0.00-0.09)
--- NOTE | 2023-11-06 11:43 | CON.PCM.CC_ITS ---
Assessment & Plan Assessment/Plan (1) Acute respiratory insufficiency: PLAN: Plan RECOMMENDATIONS: 1. Wean supplemental oxygen to maintain saturations at or above 90%. 2. Continue aggressive attempts at diuresis as tolerated by hemodynamics and renal function. 3. Outpatient secondary workup for pulmonary hypertension once euvolemic. 4. Encourage incentive spirometer use and mobilize patient as tolerated. 5. Continue Xarelto per home regimen. IMPRESSIONS: 1. Shortness of breath with associated hypoxemia Most likely multifactorial in etiology. I do suspect that the patient likely has a component of underlying pneumonia coupled with pulmonary edema. The patient has already been on an antimicrobial regimen and remains afebrile without evidence of a leukocytosis. Procalcitonin was not markedly elevated. The patient's chest x-ray did demonstrate evidence of a pleural effusion with fluid in the fissures. As such, I would recommend that we continue aggressive attempts at diuresis as tolerated by hemodynamics and renal function. In the interim, I would continue to wean supplemental oxygen to maintain saturations at or above 90%. Given that the patient is systemically anticoagulated at his baseline on Xarelto, pulmonary embolism seems unlikely. Continue aggressive bronchopulmonary hygiene. 2. Chronic back pain/history of Parkinson's disease/paroxysmal atrial fibrillation/coronary artery disease/hypertension/hyperlipidemia Complicates care, management, recovery and prognosis. Continue home medications as indicated. This note was generated with exozet dictation software. It may contain incorrect words, spelling, and punctuation that were not noted in checking the note before signing. HPI Consult Data Date of Consult: 11/06/23 HPI Narrative Reason for Consultation: Acute hypoxemic respiratory failure HPI Narrative: The patient is an 87-year-old male, with a history as outlined below, who presen carlos alberto to the emergency department via EMS initially on October 31 with progressive shortness of breath. The patient has a significant number of comorbidities including paroxysmal atrial fibrillation, coronary artery disease, MGUS, and Parkinson's disease. The patient has no pre-existing lung conditions and does not utilize supplemental oxygen at his baseline. On presentation to the emergency department, the patient was documented to be afebrile and hemodynamically stable. Initial laboratory evaluation revealed no evidence of a leukocytosis. Initial chemistry profile was unremarkable. BNP w as mildly elevated at 205. Troponin was negative. CT chest completed on October 31 demonstrated reticular nodular interstitial thickening in the upper lobes along with a right lower lobe infiltrate and associated atelectasis. The patient was subsequently admitted to the hospital for further management. To date, the patient's hospital course has included treatment with antimicrobials. The patient has been maintained on Xarelto, per his outpatient regimen. He is also on diuretics twice daily. The patient remains afebrile without evidence of an elevated white blood cell count. Chest x-ray completed yesterday continues to demonstrate bilateral infiltrates with a right-sided effusion and fluid in the fissures. Creatinine remains within normal limits. BNP was mildly elevated at 222. Surface echocardiogram completed on November 03 demonstrated mild concentric LVH with an ejection fraction of 70% and indeterminate diastolic function. Pulmonary artery systolic pressure was estimated to be 68 mmHg. [facility] Medical History Atherosclerosis of coronary artery of [place] heart without angina pectoris Depression Essential hypertension Gastric ulcer Glaucoma Hyperlipidemia Hypothyroidism Insomnia MGUS (monoclonal gammopathy of unknown significance) Parkinson's disease Paroxysmal atrial fibrillation Polyneuropathy Vitamin D deficiency Home Medications brimonidine 0.15 % eye drops 1 drp ophthalmic (eye) TID 03/07/23 [History Last Taken 10/31/23] carbidopa 25 mg-levodopa 100 mg tablet (Sinemet) 1 tab PO TID 03/07/23 [History Last Taken 10/31/23] latanoprost 0.005 % eye drops 1 drp ophthalmic (eye) DAILY 03/07/23 [History Last Taken 10/30/23] mirtazapine 7.5 mg tablet 15 mg PO QHS 03/07/23 [History Last Taken 10/30/23] pantoprazole 40 mg tablet,delayed release 40 mg PO BID 03/07/23 [History Last Taken 10/31/23] levothyroxine 88 mcg tablet 88 mcg PO DAILY 04/05/23 [History Last Taken 10/31/23] sotalol 80 mg tablet 80 mg PO BID #180 tabs 06/07/23 [Rx Last Taken 10/31/23] rivaroxaban 20 mg tablet (Xarelto) 20 mg PO QPM #30 tabs 06/14/23 [Rx Last Taken 10/30/23] fluoxetine 10 mg tablet 10 mg PO DAILY 10/31/23 [History Last Taken 10/31/23] lisinopril 20 mg tablet 40 mg PO QHS 10/31/23 [History Last Taken 10/30/23] polyethylene glycol 3350 17 gram/dose oral powder (Miralax) 17 g PO DAILY 11/01/23 [History Last Taken Unknown] Allergy/AdvReac Type Severity Reaction Status Date / Time No Known Allergies Allergy Verified 10/31/23 15:58 Family History Mother Cervical cancer Brother , 50 Aortic dissection Surgical History History of bilateral cataract extraction History of coronary artery stent placement (~2008) History of hernia repair History of transurethral resection of prostate Presence of permanent cardiac pacemaker (03/31/16) Skin cancer Social History Smoking Status: Former smoker how long ago did patient quit smokin years ago alcohol intake: never substance use type: does not use caffeine: No ROS ROS Narrative 10 systems were reviewed with pertinent positives as noted in the HPI above. Physical Exam Const alert and no apparent distress Constitutional Narrative: Sitting in bedside recliner with family present. General Appearance: cooperative HEENT normocephalic and head/scalp atraumatic Eyes PERRL, EOMs intact bilaterally and conjunctivae normal Neck supple General: trachea midline Chest inspection of chest normal Resp normal respiratory effort Auscultation: rales and diminished lung sounds Cardio regular rate and regular rhythm GI normal to inspection, nondistended, normoactive bowel sounds Extremity no clubbing, cyanosis or edema Skin no rashes or lesions noted Neuro CN's II-XII intact bilaterally, moves all extremities and no focal motor deficits Psych cooperative and affect normal Lab / Micro Data 11/06/23 06:05 11/06/23 06:05 Labs: Laboratory Results - last 24 hr 11/06/23 06:05: WBC 9.6, RBC 4.20 L, Hgb 11.8 L, Hct 36.5 L, MCV 86.9, MCH 28.1, MCHC 32.3, RDW Std Deviation 46.5 H, RDW Coeff of Jefry 14.6, Plt Count 133 L, MPV 11.0, Immature Gran % (Auto) 4.300 H, Neut % (Auto) 70.1 H, Lymph % (Auto) 13.7 L, [place] % (Auto) 10.6 H, Eos % (Auto) 0.4, Baso % (Auto) 0.9, Absolute Neuts (auto) 6.7, Absolute Lymphs (auto) 1.31, Nucleated RBC % 0, Sodium 130 L, Potassium 3.3 L, Chloride 90 L, Carbon Dioxide 35.0 H, Anion Gap 5, BUN 18, Creatinine 0.90, Estim Creat Clear Calc 66.58, Est GFR (MDRD) Af Amer 103, Est GFR (MDRD) Non-Af 85, BUN/Creatinine Ratio 20.0, Glucose 119 H, Calcium 8.4 L, B-Natriuretic Peptide 222.5 H, Procalcitonin 0.14 H Imagaing Radiology Impression Chest X-Ray 11/05/23 07:49 IMPRESSION: Pulmonary findings appear improved. Electronically Signed: Cezar Galdamez MD at 15:43 EST Reading Location ID and State: [facility] / [place] , Service support , Charges/Coding Visit Charges Inpatient E&M: 84991 Init Hosp L3
[2023-11-06 12:46] LABS: M R Staph aureus DNA By PCR Negative (Negative); Probe Check PASS; Specimen Processing Control PASS
[2023-11-06] MEDS: Ondansetron 4 MG/2 ML Vial IV (13:18)
--- NOTE | 2023-11-06 14:25 | PN_ITS ---
Subjective Subjective Patient seen and examined. His daughter was by his bedside. He felt his breathing had not improved much. He admitted some coughing but denied any chest pain, palpitations, dizziness, nausea or vomiting or any other symptoms. Review of systems otherwise negative. Patient's CODE STATUS was switched to DNR CC yes terday. However today daughter was asking about pulmonology consult. I clarified CODE STATUS with family and had an extensive discussion with them. It does appear like patient and daughter were confused about his DNR CCA and DNR CC and the difference between them. Patient was to be treated for any medical condition he has but is very clear that he would not want CPR or intubation. Hospice was consulted yesterday because CODE STATUS was switched to DNR CC. Patient and daughter informed me that patient's was in hospice before she earlier this year and they are very familiar with hospice; they do not think that patient needs hospice outside now and so are not interested in seeing hospice now. Hospice consult will therefore be canceled. He was on 7 L at time of review this morning but was later weaned down to 3 L. Potassium is low at 3.3. Objective Data Objective Data Vital Signs: Vital Signs Temp Pulse Resp BP Pulse Ox O2 Del Method O2 Flow Rate 98.3 F 80 18 138/63 H 93 Nasal Cannula 3 11/06/23 12:31 11/06/23 13:42 11/06/23 13:42 11/06/23 12:31 11/06/23 13:42 11/06/23 13:42 11/06/23 13:42 FiO2 50 11/05/23 04:46 Oxygen Flow Rate (L/min) [ 6 AMBULATING with Oxygen #3] Oxygen Flow Rate (L/min) [ 4 AMBULATING with Oxygen #2] Oxygen Flow Rate (L/min) [ 2 AMBULATING with Oxygen #1] Oxygen Flow Rate (L/min) [ 0 AMBULATING on Room Air] Oxygen Flow Rate (L/min) [At 0 REST on Room Air] Oxygen Flow Rate (L/min) 3 Oxygen Delivery Method Nasal Cannula Weight: 228 lb 13.437 oz Body Mass Index (BMI) 30.2 Intake & Output: Intake and Output for Last 24 Hours 11/04/23 11/05/23 11/06/23 23:59 23:59 23:59 Intake Total 810 / 1050 1010 / 1130 270 / 270 Output Total 1850 / 3100 1550 / 2500 1250 / 1250 Balance -1040 / -2050 -540 / -1370 -980 / -980 Lab / Micro Data 11/06/23 06:05 11/06/23 06:05 Labs: Laboratory Results - last 24 hr 11/06/23 06:05: WBC 9.6, RBC 4.20 L, Hgb 11.8 L, Hct 36.5 L, MCV 86.9, MCH 28.1, MCHC 32.3, RDW Std Deviation 46.5 H, RDW Coeff of Jefry 14.6, Plt Count 133 L, MPV 11.0, Immature Gran % (Auto) 4.300 H, Neut % (Auto) 70.1 H, Lymph % (Auto) 13.7 L, [place] % (Auto) 10.6 H, Eos % (Auto) 0.4, Baso % (Auto) 0.9, Absolute Neuts (auto) 6.7, Absolute Lymphs (auto) 1.31, Nucleated RBC % 0, Sodium 130 L, Potassium 3.3 L, Chloride 90 L, Carbon Dioxide 35.0 H, Anion Gap 5, BUN 18, Creatinine 0.90, Estim Creat Clear Calc 66.58, Est GFR (MDRD) Af Amer 103, Est GFR (MDRD) Non-Af 85, BUN/Creatinine Ratio 20.0, Glucose 119 H, Calcium 8.4 L, B-Natriuretic Peptide 222.5 H, Procalcitonin 0.14 H 11/06/23 10:46: MRSA (PCR) Negative Micro: Microbiology 11/04/23 12:45 Stool Enteric Bacteriology - Final 11/01/23 22:07 Urine, Clean Catch Chlamydia trachomatis (PCR) - Final 11/01/23 11:55 Urine, Clean Catch Legionella Antigen - Final 11/01/23 11:55 Urine, Clean Catch Streptococcus pneumoniae Antigen (M - Final 10/31/23 19:24 Mucosa - Nasopharyngeal Respiratory Panel (PCR) - Final 10/31/23 17:23 Nasal Secretion SARS-CoV-2 & FLU Antigen (Rapid) - Final Radiography Diagnostic Testing: Radiology Impression Chest X-Ray 11/05/23 07:49 IMPRESSION: Pulmonary findings appear improved. Electronically Signed: Cezar Galdamez MD at 15:43 EST , Physical Exam Const alert, oriented x3 and no apparent distress General Appearance: cooperative HEENT normocephalic, head/scalp atraumatic, moist oral mucous membranes and oropharynx normal Eyes PERRL and EOMs intact bilaterally Neck no lymphadenopathy, supple and no JVD Lymph Lymphatic: no lymphadenopathy noted and no lymphedema noted Resp Resp Narrative: Diminished breath sounds bibasilarly. No wheezes. Few crackles. On 7 L of oxygen at time of my review but subsequently came down to 3 L of oxygen. Cardio regular rate, regular rhythm, S1 normal heart sound, S2 normal heart sound and no murmurs GI normal to inspection, nondistended, normoactive bowel sounds, soft to palpation and non-tender Extremity normal capillary refill and no clubbing, cyanosis or edema Skin General Skin Exam: no breakdown Neuro CN's II-XII intact bilaterally, no focal motor deficits and no sensory deficits noted Motor Exam: general weakness Psych thought process normal, cooperative and affect normal Appearance: appropriate Assessment & Plan Assessment/Plan (1) Acute bronchitis: QUALIFIERS: Bronchitis organism: unspecified organism Qualified Code(s): J20.9 - Acute bronchitis, unspecified PLAN: Plan # Acute hypoxic respiratory failure * Likely due to severe pulmonary hypertension and acute on chronic heart failure preserved ejection fraction * Chest CT on admission showed interstitial pneumonia with small left pleural effusion with bilateral underlying atelectasis and reticulonodular interstitial thickening with multiple tiny subcentimeter peripheral nodules in the upper lobes. * Being diuresed with IV Lasix. 2D echo showed pulmonary artery systolic pre ssure of 60 mmHg indicating moderate to severe pulmonary hypertension. He has EF of 70%. * CODE STATUS was switched to DNR CCA yesterday but from conversation today, it does not appear that patient understand the difference from DNR CCA and DNR CCA and actually prefers DNR CCA no intubation. Patient and daughter are interested in pulmonology consult. * Continue diuresis for now and consult pulmonology. On IV ceftriaxone 2 g daily and IV Solu-Medrol. # * #Chronic lower back pain: PT OT on board. For precautions. #Parkinson's disease: On Sinemet #Paroxysmal A-fib: On sotalol. On Xarelto. #History of CAD s/p stents: #Benign essential hypertension: #Hyperlipidemia: On statin #Hypothyroidism: On Synthroid #History of arrhythmia: S/p pacemaker. Stable. #MGUS: Stable. Follow-up with oncology on outpatient basis. #GERD: On Protonix #BPH: S/p TURP. Stable. #DVT prophylaxis: On Xarelto already. CODE STATUS: Patient and daughter counseled extensively about different types of CODE STATUS including full code, DNR CCA and DNR CCA. Patient opted to be DNR CC yesterday but after further counseling today, patient states he wants to be DNR CCA no intubation. Patient and daughter on board with DNR CCA. They want hospice consult canceled. Will DC DNR CC and switch to DNR CCA no intubation. Total [id number] time 20 minutes. Total time spent on evaluation and management of patient, reviewing chart and specialist notes, discussing plan with patient and his daughter, discussion with nursing and ancillary staff as well as documentation: 50 mins Charges/Coding Visit Charges Inpatient E&M: 26725 Subs Hosp L2 Procedures Hospitalists Procedures: 40034 Advncd Care Plan 30 Min
[2023-11-06] MEDS: Rivaroxaban 20 MG Tablet PO (16:58)
--- NOTE | 2023-11-06 19:10 | CPS ---
Pt Refused vest therapy
[2023-11-06] MEDS: Polyethylene Glycol 3350 17 GM PACKET PO (20:20)
[2023-11-06] MEDS: tiZANidine HCl 2 MG Tablet PO (20:21)
[2023-11-06] MEDS: MELATONIN 3 MG TABLET PO (20:22)
[2023-11-06] MEDS: Mirtazapine 15 MG Tablet PO (20:22)
[2023-11-06] MEDS: Lisinopril 40 MG Tablet PO (20:22)
[2023-11-07] VITALS (9 sets, daily range): BP systolic 120–169; BP diastolic 66–76; PULSE 69–79; RESP 14–20; TEMP 36.6–37.1; O2SAT 89–94; BMI 30.3
[2023-11-07] MEDS: Levothyroxine 88 MCG Tablet PO (06:35)
[2023-11-07] MEDS: BRIMONIDINE 0.15% 5 ML Bottle 1 DRP OPHTHALMIC (06:37)
[2023-11-07 07:04] LABS: Absolute Lymphocyte Count 1.25 X10^3/uL (0.83-4.51); Absolute Neutrophil Count 6.9 X10^3/uL (2.0-7.7); Eosinophil# 0.04 X10^3/uL; Eosinophils% 0.4 % (0-5); Hemoglobin 12.1 g/dL (13.0-16.5); Lymphocyte # 1.25 X10^3/ul (0.83-4.51); Lymphocyte % 12.7 % (19-41); Mean Corp Hgb Conc 32.7 g/dL (32-36); Mean Corpuscular Hgb 28.3 pg (27.0-32.0); Mean Corpuscular Volume 86.4 fL (80-94); Mean Platelet Vol. 10.5 fl (6.2-12.0); Monocyte# 1.09 X10^3/uL; Monocyte% 11.1 % (0-10); NRBC Flagged by Analyzer 0 % (0-5); Neutrophil # 6.93 X10^3/uL (2.7-7.7); Neutrophil % 70.2 % (47-70); Platelet Count 128 K/mm3 (150-450); RBC Distribution Width CV 14.8 % (11.6-14.6); RBC Distribution Width SD 47.2 fl (35.1-43.9); Red Blood Count 4.28 M/mm3 (4.6-6.2); White Blood Count 9.9 K/mm3 (4.4-11.0)
[2023-11-07] MEDS: Ipratropium/Albuterol Sulfate 3 ML AMPUL.NEB INHALATION ×3 (07:13→19:45)
[2023-11-07 07:29] LABS: Anion Gap 5 (5-15); BUN 14 mg/dL (7-18); BUN/Creat Ratio 15.3 RATIO (10-20); Calcium,Total 8.6 mg/dL (8.5-10.1); Chloride 87 mmol/L (98-107); Creatinine, Serum 0.92 mg/dL (0.70-1.30); EST Glomerular Filtration Rate 83 mL/min (>60); Est Glom Filt Rate - Afr Amer 101 mL/min (>60); Estimated Creatinine Clearance 65.14 ml/min; Glucose 117 mg/dL (74-106); Potassium 3.5 mmol/L (3.5-5.1); Sodium Level 128 mmol/L (136-145)
[2023-11-07] MEDS: Spironolactone 50 MG Tablet PO (08:15)
[2023-11-07] MEDS: Carbidopa/Levodopa 25/100 Tablet PO ×3 (08:15→16:38)
[2023-11-07] MEDS: Sotalol Hydrochloride 80 MG Tablet PO ×2 (08:19→20:33)
[2023-11-07] MEDS: Furosemide 40 MG/4 ML Vial IV ×2 (08:20→16:38)
[2023-11-07] MEDS: Ceftriaxone 2 GM in 0.9% Normal Saline (50mL MB+) 50 ML IV (08:20)
[2023-11-07] MEDS: guaiFENesin/D-Methorphan TAB.SR.12H 2 TABLET PO (08:20)
[2023-11-07] MEDS: Pantoprazole Sodium 40 MG Tablet PO (08:21)
--- NOTE | 2023-11-07 09:52 | PN.CC_ITS ---
Assessment & Plan Assessment/Plan (1) Acute respiratory insufficiency: PLAN: Plan RECOMMENDATIONS: 1. Wean supplemental oxygen to maintain saturations at or above 90%. 2. Continue attempts at diuresis as tolerated by hemodynamics and renal function. 3. Outpatient secondary workup for pulmonary hypertension once euvolemic. 4. Encourage incentive spirometer use and mobilize patient as tolerated. 5. Continue Xarelto per home regimen. 6. Perform walking oximetry prior to consideration for discharge home. IMPRESSIONS: 1. Shortness of breath with associated hypoxemia Most likely multifactorial in etiology. I do suspect that the patient likely has a component of underlying pneumonia coupled with pulmonary edema. The hola ent has already been on an antimicrobial regimen and remains afebrile without evidence of a leukocytosis. Procalcitonin was not markedly elevated. The patient's chest x-ray did demonstrate evidence of a pleural effusion with fluid in the fissures. As such, I would recommend that we continue aggressive attempts at diuresis as tolerated by hemodynamics and renal function. In the interim, I would continue to wean supplemental oxygen to maintain saturations at or above 90%. Given that the patient is systemically anticoagulated at his baseline on Xarelto, pulmonary embolism seems unlikely. Continue aggressive bronchopulmonary hygiene. 2. Chronic back pain/history of Parkinson's disease/paroxysmal atrial fibrillation/coronary artery disease/hypertension/hyperlipidemia Complicates care, management, recovery and prognosis. Continue home medications as indicated. This note was generated with [employer] dictation software. It may contain incorrect words, spelling, and punctuation that were not noted in checking the note before signing. Subjective Subjective The patient was seen and examined at the bedside this morning. Events from the last 24 hours have been reviewed. The patient is currently afebrile, hemodynamically stable and maintaining appropriate oxygen saturations on 4 L/min via nasal cannula. The patient has no specific complaints this morning. The patient is documented to be overall net +816 mL for the hospitalization. Objective Data Objective Data The patient's most recent lab work, culture data and imaging studies have all been personally reviewed. Surface echocardiogram demonstrated mild concentric LVH with an ejection fraction of 70% and indeterminate diastolic function. Right ventricular systolic pressure was estimated to be 68 mmHg. Vital Signs: Vital Signs Temp Pulse Resp BP Pulse Ox O2 Del Method O2 Flow Rate 98.7 F 69 14 169/72 H 93 Nasal Cannula 4 11/07/23 08:21 11/07/23 08:21 11/07/23 08:21 11/07/23 08:21 11/07/23 09:32 11/07/23 08:21 11/07/23 09:32 FiO2 50 11/06/23 22:30 Oxygen Flow Rate (L/min) [ 6 AMBULATING with Oxygen #3] Oxygen Flow Rate (L/min) [ 4 AMBULATING with Oxygen #2] Oxygen Flow Rate (L/min) [ 2 AMBULATING with Oxygen #1] Oxygen Flow Rate (L/min) [ 0 AMBULATING on Room Air] Oxygen Flow Rate (L/min) [At 0 REST on Room Air] Oxygen Flow Rate (L/min) 4 Oxygen Delivery Method Nasal Cannula Weight: 229 lb 15.074 oz Body Mass Index (BMI) 30.3 Intake & Output: Intake and Output for Last 24 Hours 11/05/23 11/06/23 11/07/23 23:59 23:59 23:59 Intake Total 1010 / 1130 820 / 1060 410 / 410 Output Total 1550 / 2500 1250 / 1750 900 / 900 Balance -540 / -1370 -430 / -690 -490 / -490 Lab / Micro Data Attestation: I reviewed the patient's lab results. 11/07/23 06:45 11/07/23 06:45 Labs: Laboratory Results - last 24 hr 11/06/23 06:05: B-Natriuretic Peptide 222.5 H, Procalcitonin 0.14 H 11/06/23 10:46: MRSA (PCR) Negative 11/07/23 06:45: WBC 9.9, RBC 4.28 L, Hgb 12.1 L, Hct 37.0 L, MCV 86.4, MCH 28.3, MCHC 32.7, RDW Std Deviation 47.2 H, RDW Coeff of Jefry 14.8 H, Plt Count 128 L, MPV 10.5, Immature Gran % (Auto) 4.600 H, Neut % (Auto) 70.2 H, Lymph % (Auto) 12.7 L, [place] % (Auto) 11.1 H, Eos % (Auto) 0.4, Baso % (Auto) 1.0, Absolute Neuts (auto) 6.9, Absolute Lymphs (auto) 1.25, Nucleated RBC % 0, Sodium 128 L, Potassium 3.5, Chloride 87 L, Carbon Dioxide 36.0 H, Anion Gap 5, BUN 14, Creatinine 0.92, Estim Creat Clear Calc 65.14, Est GFR (MDRD) Af Amer 101, Est GFR (MDRD) Non-Af 83, BUN/Creatinine Ratio 15.3, Glucose 117 H, Calcium 8.6 Micro: Microbiology 11/04/23 12:45 Stool Enteric Bacteriology - Final 11/01/23 22:07 Urine, Clean Catch Chlamydia trachomatis (PCR) - Final 11/01/23 11:55 Urine, Clean Catch Legionella Antigen - Final 11/01/23 11:55 Urine, Clean Catch Streptococcus pneumoniae Antigen (M - Final 10/31/23 19:24 Mucosa - Nasopharyngeal Respiratory Panel (PCR) - Final 10/31/23 17:23 Nasal Secretion SARS-CoV-2 & FLU Antigen (Rapid) - Final Physical Exam Const alert and no apparent distress Constitutional Narrative: Sitting in bedside recliner. General Appearance: cooperative HEENT normocephalic and head/scalp atraumatic Eyes PERRL, EOMs intact bilaterally and conjunctivae normal Neck supple General: trachea midline Chest inspection of chest normal Resp normal respiratory effort Auscultation: rales and diminished lung sounds Cardio regular rate and regular rhythm GI normal to inspection, nondistended, normoactive bowel sounds Extremity no clubbing, cyanosis or edema Skin no rashes or lesions noted Neuro CN's II-XII intact bilaterally, moves all extremities and no focal motor deficits Psych cooperative and affect normal Charges/Coding Visit Charges Inpatient E&M: 44672 Subs Hosp L2
[2023-11-07] MEDS: FLUoxetine 10 MG Capsule PO (12:26)
--- NOTE | 2023-11-07 13:30 | PN_ITS ---
Subjective Subjective Patient seen and examined. He states he feels much better today. He had no active complaints. He denied any cough, chest pain, palpitations, dizziness, nausea vomiting or any other symptoms. Review of systems otherwise negative. He is in positive fluid balance by 8 1 6 mL. He is down to 4 L today. Objective Data Objective Data Vital Signs: Vital Signs Temp Pulse Resp BP Pulse Ox O2 Del Method O2 Flow Rate 98.7 F 69 14 169/72 H 93 Nasal Cannula 4 11/07/23 08:21 11/07/23 08:21 11/07/23 08:21 11/07/23 08:21 11/07/23 09:32 11/07/23 08:21 11/07/23 09:32 FiO2 50 11/06/23 22:30 Oxygen Flow Rate (L/min) [ 6 AMBULATING with Oxygen #3] Oxygen Flow Rate (L/min) [ 4 AMBULATING with Oxygen #2] Oxygen Flow Rate (L/min) [ 2 AMBULATING with Oxygen #1] Oxygen Flow Rate (L/min) [ 0 AMBULATING on Room Air] Oxygen Flow Rate (L/min) [At 0 REST on Room Air] Oxygen Flow Rate (L/min) 4 Oxygen Delivery Method Nasal Cannula Weight: 229 lb 15.074 oz Body Mass Index (BMI) 30.3 Intake & Output: Intake and Output for Last 24 Hours 11/05/23 11/06/23 11/07/23 23:59 23:59 23:59 Intake Total 1010 / 1130 820 / 1060 410 / 410 Output Total 1550 / 2500 1250 / 1750 900 / 900 Balance -540 / -1370 -430 / -690 -490 / -490 Lab / Micro Data 11/07/23 06:45 11/07/23 06:45 Labs: Laboratory Results - last 24 hr 11/07/23 06:45: WBC 9.9, RBC 4.28 L, Hgb 12.1 L, Hct 37.0 L, MCV 86.4, MCH 28.3, MCHC 32.7, RDW Std Deviation 47.2 H, RDW Coeff of Jefry 14.8 H, Plt Count 128 L, MPV 10.5, Immature Gran % (Auto) 4.600 H, Neut % (Auto) 70.2 H, Lymph % (Auto) 12.7 L, [place] % (Auto) 11.1 H, Eos % (Auto) 0.4, Baso % (Auto) 1.0, Absolute Neuts (auto) 6.9, Absolute Lymphs (auto) 1.25, Nucleated RBC % 0, Sodium 128 L, Potassium 3.5, Chloride 87 L, Carbon Dioxide 36.0 H, Anion Gap 5, BUN 14, Creatinine 0.92, Estim Creat Clear Calc 65.14, Est GFR (MDRD) Af Amer 101, Est GFR (MDRD) Non-Af 83, BUN/Creatinine Ratio 15.3, Glucose 117 H, Calcium 8.6 Micro: Microbiology 11/04/23 12:45 Stool Enteric Bacteriology - Final 11/01/23 22:07 Urine, Clean Catch Chlamydia trachomatis (PCR) - Final 11/01/23 11:55 Urine, Clean Catch Legionella Antigen - Final 11/01/23 11:55 Urine, Clean Catch Streptococcus pneumoniae Antigen (M - Final 10/31/23 19:24 Mucosa - Nasopharyngeal Respiratory Panel (PCR) - Final 10/31/23 17:23 Nasal Secretion SARS-CoV-2 & FLU Antigen (Rapid) - Final Physical Exam Const alert, oriented x3 and no apparent distress General Appearance: cooperative HEENT normocephalic, head/scalp atraumatic, hearing grossly normal bilaterally, moist oral mucous membranes and oropharynx normal Eyes PERRL, EOMs intact bilaterally and conjunctivae normal Neck no lymphadenopathy, supple and no JVD Lymph Lymphatic: no lymphadenopathy noted and no lymphedema noted Resp normal respiratory effort, no retractions and no use of accessory muscles Resp Narrative: Diminished breath sounds bibasilarly. No wheezes. Few crackles. On 4L of oxygen today Cardio regular rate, regular rhythm, S1 normal heart sound, S2 normal heart sound and no murmurs GI normal to inspection, nondistended, normoactive bowel sounds, soft to palpation, non-tender and non-distended Extremity normal to inspection, full ROM, normal capillary refill and no clubbing, cyanos is or edema Skin General Skin Exam: no breakdown Neuro oriented x3, CN's II-XII intact bilaterally, moves all extremities, no focal motor deficits and no sensory deficits noted Sensorium / Orientation: awake, alert, oriented to person, oriented to place and oriented to time Speech: speech normal Motor Exam: strength 5/5 throughout and general weakness Psych thought process normal, cooperative and affect normal Appearance: appropriate Assessment & Plan Assessment/Plan (1) Acute bronchitis: QUALIFIERS: Bronchitis organism: unspecified organism Qualified Code(s): J20.9 - Acute bronchitis, unspecified PLAN: Plan # Acute hypoxic respiratory failure * Likely due to severe pulmonary hypertension and acute on chronic heart failure preserved ejection fraction * Chest CT on admission showed interstitial pneumonia with small left pleural effusion with bilateral underlying atelectasis and reticulonodular interstitial thickening with multiple tiny subcentimeter peripheral nodules in the upper lobes. * Being diuresed with IV Lasix. 2D echo showed pulmonary artery systolic pressure of 60 mmHg indicating moderate to severe pulmonary hypertension. He has EF of 70%. * CODE STATUS was switched to DNR CCA yesterday but from conversation today, it does not appear that patient understand the difference from DNR CCA and DNR CCA and actually prefers DNR CCA no intubation. Patient and daughter are interested in pulmonology consult. * Continue diuresis for now. On IV ceftriaxone 2 g daily and IV Solu-Medrol. * pulmonology on board * #Chronic lower back pain: PT OT on board. For precautions. #Parkinson's disease: On Sinemet #Paroxysmal A-fib: On sotalol. On Xarelto. #Benign essential hypertension: on lisinopril and spironolactone #Hyperlipidemia: On statin #Hypothyroidism: On Synthroid #History of arrhythmia: S/p pacemaker. Stable. #MGUS: Stable. Follow-up with oncology on outpatient basis. #GERD: On Protonix #BPH: S/p TURP. Stable. #DVT prophylaxis: On Xarelto already. CODE STATUS: DNRCCA no intubation Total time spent on evaluation and management of patient, reviewing chart and specialist notes, discussing plan with patient and his daughter, discussion with nursing and ancillary staff as well as documentation: 40 mins Charges/Coding Visit Charges Inpatient E&M: 51444 Subs Hosp L2
[2023-11-07] MEDS: Rivaroxaban 20 MG Tablet PO (16:38)
--- NOTE | 2023-11-07 16:46 | PN_ITS ---
Subjective Subjective He had some improvement in his pain for a few days, but it has returned. His pain is mostly at night when he lays on his side. He says that the norco made him have bad nightmares and he only took 1 dose. Tizanidine has not been significantly impactful, but denies side effects. He did not end up having the mri as of yet. Lyme antibody was negative. He has largely been dealing with his respiratory infection, which has been improving recently. Objective Data Objective Data Vital Signs: Vital Signs Temp Pulse Resp BP Pulse Ox O2 Del Method O2 Flow Rate 98.7 F 79 20 H 169/72 H 93 Nasal Cannula 4 11/07/23 08:21 11/07/23 12:39 11/07/23 12:39 11/07/23 08:21 11/07/23 09:32 11/07/23 08:21 11/07/23 13:15 FiO2 50 11/06/23 22:30 Oxygen Flow Rate (L/min) [ 6 AMBULATING with Oxygen #3] Oxygen Flow Rate (L/min) [ 4 AMBULATING with Oxygen #2] Oxygen Flow Rate (L/min) [ 2 AMBULATING with Oxygen #1] Oxygen Flow Rate (L/min) [ 0 AMBULATING on Room Air] Oxygen Flow Rate (L/min) [At 0 REST on Room Air] Oxygen Flow Rate (L/min) 4 Oxygen Delivery Method Nasal Cannula Weight: 104.3 kg Body Mass Index (BMI) 30.3 Intake & Output: Intake and Output for Last 24 Hours 11/05/23 11/06/23 11/07/23 23:59 23:59 23:59 Intake Total 1010 / 1130 820 / 1060 410 / 410 Output Total 1550 / 2500 1250 / 1750 900 / 900 Balance -540 / -1370 -430 / -690 -490 / -490 Lab / Micro Data 11/07/23 06:45 11/07/23 06:45 Labs: Laboratory Results - last 24 hr 11/07/23 06:45: WBC 9.9, RBC 4.28 L, Hgb 12.1 L, Hct 37.0 L, MCV 86.4, MCH 28.3, MCHC 32.7, RDW Std Deviation 47.2 H, RDW Coeff of Jefry 14.8 H, Plt Count 128 L, MPV 10.5, Immature Gran % (Auto) 4.600 H, Neut % (Auto) 70.2 H, Lymph % (Auto) 12.7 L, [place] % (Auto) 11.1 H, Eos % (Auto) 0.4, Baso % (Auto) 1.0, Absolute [place] ts (auto) 6.9, Absolute Lymphs (auto) 1.25, Nucleated RBC % 0, Sodium 128 L, Potassium 3.5, Chloride 87 L, Carbon Dioxide 36.0 H, Anion Gap 5, BUN 14, Creatinine 0.92, Estim Creat Clear Calc 65.14, Est GFR (MDRD) Af Amer 101, Est G FR (MDRD) Non-Af 83, BUN/Creatinine Ratio 15.3, Glucose 117 H, Calcium 8.6 Micro: Microbiology 11/04/23 12:45 Stool Enteric Bacteriology - Final 11/01/23 22:07 Urine, Clean Catch Chlamydia trachomatis (PCR) - Final 11/01/23 11:55 Urine, Clean Catch Legionella Antigen - Final 11/01/23 11:55 Urine, Clean Catch Streptococcus pneumoniae Antigen (M - Final 10/31/23 19:24 Mucosa - Nasopharyngeal Respiratory Panel (PCR) - Final 10/31/23 17:23 Nasal Secretion SARS-CoV-2 & FLU Antigen (Rapid) - Final Physical Exam Narrative He has no paraspinal tenderness. No tenderness in the right hip with hip provocative maneuvers. No GTB tenderness. Negative SLR. 5/5 strength in the right lower extremity, except for 4/5 with hip flexion on the right. Normal sensation. Const alert, no apparent distress and well nourished General Appearance: cooperative and well developed HEENT normocephalic Eyes EOMs intact bilaterally Resp Resp Narrative: On nasal canula Neuro CN's II-XII intact bilaterally Psych affect normal Assessment & Plan Assessment/Plan (1) Hip pain: QUALIFIERS: Laterality: right Qualified Code(s): M25.551 - Pain in right hip PLAN: Mr. Ding is being seen for consultation regarding low back, hip and lower extremity pain. He was referred to my clinic by Dr. Cespedes, but was admitted for infection concerns (Nausea, GI upset and bronchitis). He states the pain started about 3 weeks prior to his hospitalization, shortly after a long road trip to [place]. He had worsening pulmonary status since he was last seen, but has been slowly improving. Now on 4l [place]. He remains on abx. He states it was mostly spent in the car and not in the wilderness. The pain started out of the blue with pain in the right hip. He says that he had some improvement ofr a few days, but the pain has returned at night. He tried 1 dose of the norco, but states it gave him terrible dreams and did not take any more doses. He is not sure if tizanidine has been helping. XR imaging showed no significant OA nor fracture from 10/26. His pain appears to be related to the joint, although it is only present at night or with walking. His examination was relatively benign and only standing was able to elicit his pain. It seems that since it is so acute in nature and also has migrated previously to the right knee that there may be a reactive/infectious etiology. He even notes some left hip pain during the night now, but it is milder. -I spoke with the hospitalist team about possible etiologies. She is to investigate further tomorrow. -Lyme antibody was negative, but unclear if this could be false negative due to timeline? -Recommend Lumbar/pelvic MRI to rule out possible radiculopathy and investigate the hip, although it is a bit of a nonclassical presentation. Consider right hip aspiration if fluid is present on imaging. Culture of the synovial fluid may be of limited value since he has been started on antibiotic therapy. -He can continue tizanidine 2mg at bedtime. -Will hold off on gabapentin at this time due to respiratory status and infectious status: do not want fluid retention or altered mental status. -He should avoid NSAIDS while on rivaroxaban. -PRN tylenol is reasonable -D/C norco due to nightmares. Will start oxycodone 2.5mg every 6 hours as needed. he was amenable to low dose due to concern that he may have side effects like the norco. (2) Back pain: QUALIFIERS: Back pain location: low back pain Chronicity: acute Back pain laterality: right Sciatica presence: with sciatica Qualified Code(s): M54.41 - Lumbago with sciatica, right side PLAN: Lumbar XR from 10/12 showed scoliosis and spondylosis. He has no significant lower back pain today on examination. There was concern that he had radiculopathy. Per the history and physical examination, it is unclear if the lower back is responsible for his pain. it is possible, but not classic presentation for radiculopathy. It seems more likely to be arthralgia (perhaps related to an infectious etiology?). Regardless, I think it is reasonable to obtain an MRI to further work up his acute severe pain.
[2023-11-07] MEDS: Mirtazapine 15 MG Tablet PO (20:32)
[2023-11-07] MEDS: Lisinopril 40 MG Tablet PO (20:32)
[2023-11-07] MEDS: MELATONIN 3 MG TABLET PO (20:33)
[2023-11-07] MEDS: tiZANidine HCl 2 MG Tablet PO (20:34)
[2023-11-07] MEDS: oxyCODONE 5 MG Tablet 2.5 MG PO (22:30)
[2023-11-08] VITALS (9 sets, daily range): BP systolic 135–168; BP diastolic 74–78; PULSE 71–81; RESP 18–20; TEMP 36.6–37.1; O2SAT 90–92; BMI 29.9
[2023-11-08] MEDS: BRIMONIDINE 0.15% 5 ML Bottle 1 DRP OPHTHALMIC (05:07)
[2023-11-08] MEDS: Levothyroxine 88 MCG Tablet PO ×2 (05:07)
[2023-11-08] MEDS: Ondansetron 4 MG/2 ML Vial IV ×2 (05:36→09:45)
[2023-11-08] MEDS: 0.9% Saline Lock 10 ML Syringe IV ×3 (05:36→13:30)
--- NOTE | 2023-11-08 07:25 | PN.CC_ITS ---
Assessment & Plan Assessment/Plan (1) Acute respiratory insufficiency: PLAN: Plan RECOMMENDATIONS: 1. Wean supplemental oxygen to maintain saturations at or above 90%. 2. Continue attempts at diuresis as tolerated by hemodynamics and renal function. 3. Outpatient secondary workup for pulmonary hypertension after discharge. 4. Encourage incentive spirometer use and mobilize patient as tolerated. 5. Continue Xarelto per home regimen. 6. Perform walking oximetry prior to consideration for discharge home. IMPRESSIONS: 1. Shortness of breath with associated hypoxemia Most likely multifactorial in etiology. I do suspect that the patient likely has a component of underlying pneumonia coupled with pulmonary edema. The pat ient has already been on an antimicrobial regimen and remains afebrile without evidence of a leukocytosis. Procalcitonin was not markedly elevated. The patient's chest x-ray did demonstrate evidence of a pleural effusion with fluid in the fissures. As such, I would recommend that we continue aggressive attempts at diuresis as tolerated by hemodynamics and renal function. In the interim, I would continue to wean supplemental oxygen to maintain saturations at or above 90%. Given that the patient is systemically anticoagulated at his baseline on Xarelto, pulmonary embolism seems unlikely. Continue aggressive bronchopulmonary hygiene. 2. Chronic back pain/history of Parkinson's disease/paroxysmal atrial fibrillation/coronary artery disease/hypertension/hyperlipidemia Complicates care, management, recovery and prognosis. Continue home medications as indicated. This note was generated with [employer] dictation software. It may contain incorrect words, spelling, and punctuation that were not noted in checking the note before signing. Subjective Subjective The patient was seen and examined at the bedside this morning. Events from the last 24 hours have been reviewed. The patient is currently afebrile, hemodynamically stable and maintaining appropriate oxygen saturations on 4 L/min via nasal cannula. No overnight issues were identified. The patient has no specific complaints this morning. The patient remains on scheduled diuretic therapy. Objective Data Objective Data The patient's most recent lab work, culture data and imaging studies have all been personally reviewed. Surface echocardiogram demonstrated mild concentric LVH with an ejection fraction of 70% and indeterminate diastolic function. Right ventricular systolic pressure was estimated to be 68 mmHg. Vital Signs: Vital Signs Temp Pulse Resp BP Pulse Ox O2 Del Method O2 Flow Rate 97.9 F 71 18 135/78 H 90 Nasal Cannula 4 11/08/23 04:46 11/08/23 04:46 11/08/23 04:46 11/08/23 04:46 11/08/23 04:46 11/08/23 05:04 11/08/23 05:04 FiO2 50 11/06/23 22:30 Oxygen Flow Rate (L/min) [ 6 AMBULATING with Oxygen #3] Oxygen Flow Rate (L/min) [ 4 AMBULATING with Oxygen #2] Oxygen Flow Rate (L/min) [ 2 AMBULATING with Oxygen #1] Oxygen Flow Rate (L/min) [ 0 AMBULATING on Room Air] Oxygen Flow Rate (L/min) [At 0 REST on Room Air] Oxygen Flow Rate (L/min) 4 Oxygen Delivery Method Nasal Cannula Weight: 226 lb 13.69 oz Body Mass Index (BMI) 29.9 Intake & Output: Intake and Output for Last 24 Hours 11/06/23 11/07/23 11/08/23 23:59 23:59 23:59 Intake Total 820 / 1060 970 / 1090 120 / 120 Output Total 1250 / 1750 900 / 900 700 / 700 Balance -430 / -690 70 / 190 -580 / -580 Lab / Micro Data Attestation: I reviewed the patient's lab results. 11/07/23 06:45 11/07/23 06:45 Labs: Laboratory Results - last 24 hr 11/07/23 06:45: Sodium 128 L, Potassium 3.5, Chloride 87 L, Carbon Dioxide 36.0 H, Anion Gap 5, BUN 14, Creatinine 0.92, Estim Creat Clear Calc 65.14, Est GFR (MDRD) Af Amer 101, Est GFR (MDRD) Non-Af 83, BUN/Creatinine Ratio 15.3, Glucose 117 H, Calcium 8.6 Micro: Microbiology 11/04/23 12:45 Stool Enteric Bacteriology - Final 11/01/23 22:07 Urine, Clean Catch Chlamydia trachomatis (PCR) - Final 11/01/23 11:55 Urine, Clean Catch Legionella Antigen - Final 11/01/23 11:55 Urine, Clean Catch Streptococcus pneumoniae Antigen (M - Final 10/31/23 19:24 Mucosa - Nasopharyngeal Respiratory Panel (PCR) - Final 10/31/23 17:23 Nasal Secretion SARS-CoV-2 & FLU Antigen (Rapid) - Final Physical Exam Const alert and no apparent distress General Appearance: cooperative HEENT normocephalic and head/scalp atraumatic General Ear: hearing grossly impaired Eyes PERRL, EOMs intact bilaterally and conjunctivae normal Neck supple General: trachea midline Chest inspection of chest normal Resp normal respiratory effort Auscultation: rales and diminished lung sounds Cardio regular rate and regular rhythm GI normal to inspection, nondistended, normoactive bowel sounds Extremity no clubbing, cyanosis or edema Skin no rashes or lesions noted Neuro CN's II-XII intact bilaterally, moves all extremities and no focal motor deficits Psych cooperative and affect normal Charges/Coding Visit Charges Inpatient E&M: 71271 Subs Hosp L2
[2023-11-08] MEDS: Ipratropium/Albuterol Sulfate 3 ML AMPUL.NEB INHALATION ×3 (07:29→21:20)
--- NOTE | 2023-11-08 08:20 | NURSING ---
pt requests to take am meds after food arrives
[2023-11-08 08:42] LABS: Anion Gap 7 (5-15); BUN 12 mg/dL (7-18); BUN/Creat Ratio 16.6 RATIO (10-20); Calcium,Total 8.7 mg/dL (8.5-10.1); Chloride 87 mmol/L (98-107); Creatinine, Serum 0.72 mg/dL (0.70-1.30); EST Glomerular Filtration Rate 109 mL/min (>60); Est Glom Filt Rate - Afr Amer 132 mL/min (>60); Estimated Creatinine Clearance 59.93 ml/min; Glucose 117 mg/dL (74-106); Potassium 3.6 mmol/L (3.5-5.1); Sodium Level 126 mmol/L (136-145)
[2023-11-08] MEDS: FLUoxetine 10 MG Capsule PO (09:02)
[2023-11-08] MEDS: Pantoprazole Sodium 40 MG Tablet PO (09:03)
[2023-11-08] MEDS: Polyethylene Glycol 3350 17 GM PACKET PO (09:03)
[2023-11-08] MEDS: guaiFENesin/D-Methorphan TAB.SR.12H 2 TABLET PO (09:03)
[2023-11-08] MEDS: Sotalol Hydrochloride 80 MG Tablet PO ×2 (09:03→21:27)
[2023-11-08] MEDS: Spironolactone 50 MG Tablet PO (09:04)
[2023-11-08] MEDS: Carbidopa/Levodopa 25/100 Tablet PO ×2 (09:05→16:22)
[2023-11-08] MEDS: Furosemide 40 MG/4 ML Vial IV (09:09)
[2023-11-08] MEDS: Ceftriaxone 2 GM in 0.9% Normal Saline (50mL MB+) 50 ML IV (09:09)
--- NOTE | 2023-11-08 11:21 | CT_ITS ---
STUDY: CT LUMBAR SPINE WITHOUT CONTRAST REASON FOR EXAM: Male, 87 years old. Spinal stenosis RADIATION DOSAGE (If Supplied By Facility): CTDIvol = ( 20.34 ) mGy, DLP = ( 743.48 ) mGycm TECHNIQUE: The patient was scanned in a multi detector CT scanner. High resolution transaxial imaging was performed. Images were obtained from L1 to S1 vertebral level. Sagittal and coronal images were reconstructed. Individualized dose optimization techniques were used for this CT. COMPARISON: None FINDINGS: Normal lumbar lordosis. There is no substantial scoliosis. Multilevel spondylosis. L1-2: Anterior spondylosis. No significant stenosis seen. L2-3: Anterior spondylosis. No significant disc herniation is seen. L3-4: Normal endplates. Normal disc height and morphology. Normal bilateral facet joints. Normal central canal and bilateral lateral recesses. Normal bilateral intervertebral neural foramina. L4-5: Mild degree of disc space narrowing. L5-S1: Moderate degree of disc space narrowing and disc degeneration. Spondylosis. No spinal stenosis seen. Atherosclerotic plaque formation of the abdominal aorta. CT/Spine Lumbar without Contrast IMPRESSION: Multilevel degenerative changes, as described above. Electronically Signed: Sav Morillo MD at 14:21 EST ,
--- NOTE | 2023-11-08 11:21 | CT_ITS ---
STUDY: CT PELVIS WITHOUT CONTRAST REASON FOR EXAM: Male, 87 years old. right hip pain RADIATION DOSAGE (If Supplied By Facility): CTDIvol = ( 28.21 ) mGy, DLP = ( 905.21 ) mGycm TECHNIQUE: Transaxial imaging of the pelvis was performed with oral contrast, and without intravenous administration of contrast material. Individualized dose optimization techniques were used for this CT. COMPARISON: None. FINDINGS: Distended urinary bladder. Normal visualized small intestine. Moderate amount of fecal material is seen in the rectosigmoid colon. There is no pelvic fluid. There is no pelvic mass lesion or lymphadenopathy. There is diffuse atherosclerotic calcification of the pelvic arteries. Evidence of prior bilateral inguinal hernia repair. Residual small bilateral inguinal hernias containing fat. Degenerative changes of the sacroiliac joints bilaterally. There are degenerative changes of the visualized lumbar spine. No hip fracture is seen. CT/Pelvis without IV Contrast IMPRESSION: No hip fractures seen. Sigmoid diverticulosis. Degenerative changes of the lumbar spine. Electronically Signed: Sav Morillo MD at 14:19 EST ,
--- NOTE | 2023-11-08 11:58 | NURSING ---
pharmacy aware that there is no phenergan in [facility]-pt continues to have nausea despite zofran-Rx said they will make dr aware there is no phenergan in [facility] at this time d/t back order-pt and family updated there is none available
--- NOTE | 2023-11-08 12:11 | PN_ITS ---
Subjective Subjective Patient seen and examined. Daughter was by her bedside. HE says he is feeling a bit better. He complains of chronic back pain in the right hip which radiates down his back. He denies any back pain. He is on 4L of oxygen. Review of systems is otherwise negative. Objective Data Objective Data Vital Signs: Vital Signs Temp Pulse Resp BP Pulse Ox O2 Del Method O2 Flow Rate 98.0 F 78 20 H 168/77 H 91 Nasal Cannula 4 11/08/23 08:23 11/08/23 08:24 11/08/23 08:24 11/08/23 08:23 11/08/23 08:24 11/08/23 08:24 11/08/23 08:24 FiO2 50 11/06/23 22:30 Oxygen Flow Rate (L/min) [ 6 AMBULATING with Oxygen #3] Oxygen Flow Rate (L/min) [ 4 AMBULATING with Oxygen #2] Oxygen Flow Rate (L/min) [ 2 AMBULATING with Oxygen #1] Oxygen Flow Rate (L/min) [ 0 AMBULATING on Room Air] Oxygen Flow Rate (L/min) [At 0 REST on Room Air] Oxygen Flow Rate (L/min) 4 Oxygen Delivery Method Nasal Cannula Weight: 226 lb 13.69 oz Body Mass Index (BMI) 29.9 Intake & Output: Intake and Output for Last 24 Hours 11/06/23 11/07/23 11/08/23 23:59 23:59 23:59 Intake Total 820 / 1060 970 / 1090 170 / 170 Output Total 1250 / 1750 900 / 900 700 / 700 Balance -430 / -690 70 / 190 -530 / -530 Lab / Micro Data 11/07/23 06:45 11/08/23 07:59 Labs: Laboratory Results - last 24 hr 11/08/23 07:59: Sodium 126 L, Potassium 3.6, Chloride 87 L, Carbon Dioxide 32.0, Anion Gap 7, BUN 12, Creatinine 0.72, Estim Creat Clear Calc 59.93, Est GFR (MDRD) Af Amer 132, Est GFR (MDRD) Non-Af 109, BUN/Creatinine Ratio 16.6, Glucose 117 H, Calcium 8.7 Micro: Microbiology 11/04/23 12:45 Stool Enteric Bacteriology - Final 11/01/23 22:07 Urine, Clean Catch Chlamydia trachomatis (PCR) - Final 11/01/23 11:55 Urine, Clean Catch Legionella Antigen - Final 11/01/23 11:55 Urine, Clean Catch Streptococcus pneumoniae Antigen (M - Final 10/31/23 19:24 Mucosa - Nasopharyngeal Respiratory Panel (PCR) - Final 10/31/23 17:23 Nasal Secretion SARS-CoV-2 & FLU Antigen (Rapid) - Final Physical Exam Const alert, oriented x3, no apparent distress, average body habitus and healthy appearing General Appearance: cooperative HEENT normocephalic, head/scalp atraumatic, hearing grossly normal bilaterally, moist oral mucous membranes and oropharynx normal Eyes PERRL, EOMs intact bilaterally and conjunctivae normal Neck no lymphadenopathy, supple and no JVD Lymph Lymphatic: no lymphadenopathy noted and no lymphedema noted Resp Resp Narrative: Diminished breath sounds bibasilarly. No wheezes. Few crackles. Remains on 4L of oxygen t Cardio regular rate, regular rhythm, S1 normal heart sound, S2 normal heart sound and no murmurs GI normal to inspection, nondistended, normoactive bowel sounds, soft to palpation, non-tender and non-distended Extremity normal to inspection, full ROM, normal capillary refill and no clubbing, cya nosis or edema Skin General Skin Exam: no breakdown Neuro oriented x3, CN's II-XII intact bilaterally, moves all extremities, no focal motor deficits and no sensory deficits noted Sensorium / Orientation: awake, alert, oriented to person, oriented to place and oriented to time Speech: speech normal Motor Exam: strength 5/5 throughout and general weakness Psych thought process normal, cooperative and affect normal Appearance: appropriate Assessment & Plan Assessment/Plan (1) Acute bronchitis: QUALIFIERS: Bronchitis organism: unspecified organism Qualified Code(s): J20.9 - Acute bronchitis, unspecified PLAN: Plan # Acute hypoxic respiratory failure * Likely due to severe pulmonary hypertension and acute on chronic heart failure preserved ejection fraction * Chest CT on admission showed interstitial pneumonia with small left pleural effusion with bilateral underlying atelectasis and reticulonodular interstitial thickening with multiple tiny subcentimeter peripheral nodules in the upper lobes. * Being diuresed with IV Lasix. 2D echo showed pulmonary artery systolic pressure of 60 mmHg indicating moderate to severe pulmonary hypertension. He has EF of 70%. * DC diuresis for due to worsening hyponatremia. On IV ceftriaxone 2 g daily and IV Solu-Medrol. * pulmonology on board * #Chronic lower back pain: * says pain is in the right hip and radiates down his leg. * Straight leg raising test was negative. * WIll get ct scan of the lumbar spine and right hip; has a pacemaker incompatible with MRI. * Discussed with Dr. De Los Santos of pain management on phone yesterday. Source of pain is not clear. He did have a steroid shot by his PCP recently but that does not seem to have helped much with the pain. Discussion with Dr. De Los Santos, images ordered as above. Will review images and determine next steps. #Hyponatremia * sodium is down to 126 today. Likely due to overdiuresis. * will dc IV lasix today and monitor sodium * if it worsens any further will do more extensiver workup * #Parkinson's disease: On Sinemet #Paroxysmal A-fib: On sotalol. On Xarelto. #Benign essential hypertension: on lisinopril and spironolactone #Hyperlipidemia: On statin #Hypothyroidism: On Synthroid #History of arrhythmia: S/p pacemaker. Stable. #MGUS: Stable. Follow-up with oncology on outpatient basis. #GERD: On Protonix #BPH: S/p TURP. Stable. #DVT prophylaxis: On Xarelto already. CODE STATUS: DNRCCA no intubation Total time spent on evaluation and management of patient, reviewing chart and specialist notes, discussing plan with patient and his daughter, discussion with nursing and ancillary staff as well as documentation: 42 mins Charges/Coding Visit Charges Inpatient E&M: 16108 Subs Hosp L2
[2023-11-08] MEDS: proCHLORPERazine 10 MG/2 ML Vial 5 MG IV (13:30)
[2023-11-08] MEDS: Rivaroxaban 20 MG Tablet PO (16:20)
[2023-11-08] MEDS: Lisinopril 40 MG Tablet PO (21:27)
[2023-11-08] MEDS: MELATONIN 3 MG TABLET PO (21:27)
[2023-11-08] MEDS: Mirtazapine 15 MG Tablet PO (21:28)
[2023-11-08] MEDS: tiZANidine HCl 2 MG Tablet PO (21:28)
[2023-11-09] VITALS (8 sets, daily range): BP systolic 142–164; BP diastolic 65–78; PULSE 72–90; RESP 16–24; TEMP 36.4–36.6; O2SAT 87–95; BMI 29.3
--- NOTE | 2023-11-09 02:22 | CPS ---
Pt declines use of vest, as like yesterday as well.
[2023-11-09] MEDS: BRIMONIDINE 0.15% 5 ML Bottle 1 DRP OPHTHALMIC (05:54)
[2023-11-09] MEDS: Ipratropium/Albuterol Sulfate 3 ML AMPUL.NEB INHALATION ×2 (07:11→19:05)
[2023-11-09] MEDS: Carbidopa/Levodopa 25/100 Tablet PO ×3 (08:03→17:33)
[2023-11-09] MEDS: Spironolactone 50 MG Tablet PO (08:04)
[2023-11-09] MEDS: Sotalol Hydrochloride 80 MG Tablet PO ×2 (08:04→17:33)
[2023-11-09 09:48] LABS: Osmolality, Serum 266 mOsm/KG (280-301)
[2023-11-09] MEDS: Ceftriaxone 2 GM in 0.9% Normal Saline (50mL MB+) 50 ML IV (09:53)
[2023-11-09] MEDS: 0.9% Saline Lock 10 ML Syringe IV ×2 (09:54→13:45)
[2023-11-09] MEDS: Polyethylene Glycol 3350 17 GM PACKET PO (09:54)
[2023-11-09] MEDS: guaiFENesin/D-Methorphan TAB.SR.12H 2 TABLET PO ×2 (09:54→20:48)
[2023-11-09] MEDS: Pantoprazole Sodium 40 MG Tablet PO ×2 (09:54→17:33)
[2023-11-09] MEDS: FLUoxetine 10 MG Capsule PO (09:55)
[2023-11-09 11:43] LABS: Urine Sodium < 5 mmol/L (Not Establ.)
[2023-11-09 11:55] LABS: Osmolality, Urine 625 mOsm/KG
--- NOTE | 2023-11-09 12:44 | PN_ITS ---
Subjective Subjective Patient seen and examined. He said he wanted to go home. HE had no other complaints. Review of systems is otherwise negative. Sodium has trended down to 126 afshin Objective Data Objective Data Vital Signs: Vital Signs Temp Pulse Resp BP Pulse Ox O2 Del Method O2 Flow Rate 97.8 F 74 17 164/71 H 90 Nasal Cannula 4 11/09/23 08:00 11/09/23 08:00 11/09/23 08:00 11/09/23 08:00 11/09/23 08:00 11/09/23 08:30 11/09/23 08:30 FiO2 50 11/06/23 22:30 Oxygen Flow Rate (L/min) [ 6 AMBULATING with Oxygen #3] Oxygen Flow Rate (L/min) [ 4 AMBULATING with Oxygen #2] Oxygen Flow Rate (L/min) [ 2 AMBULATING with Oxygen #1] Oxygen Flow Rate (L/min) [ 0 AMBULATING on Room Air] Oxygen Flow Rate (L/min) [At 0 REST on Room Air] Oxygen Flow Rate (L/min) 4 Oxygen Delivery Method Nasal Cannula Weight: 222 lb 10.67 oz Body Mass Index (BMI) 29.3 Intake & Output: Intake and Output for Last 24 Hours 11/07/23 11/08/23 11/09/23 23:59 23:59 23:59 Intake Total 970 / 1090 520 / 1000 650 / 650 Output Total 900 / 900 700 / 1200 1150 / 1150 Balance 70 / 190 -180 / -200 -500 / -500 Lab / Micro Data 11/07/23 06:45 11/08/23 07:59 Labs: Laboratory Results - last 24 hr 11/09/23 09:05: Serum Osmolality 266 L 11/09/23 11:27: Urine Osmolality 625, Ur Random Sodium < 5 Micro: Microbiology 11/04/23 12:45 Stool Enteric Bacteriology - Final 11/01/23 22:07 Urine, Clean Catch Chlamydia trachomatis (PCR) - Final 11/01/23 11:55 Urine, Clean Catch Legionella Antigen - Final 11/01/23 11:55 Urine, Clean Catch Streptococcus pneumoniae Antigen (M - Final 10/31/23 19:24 Mucosa - Nasopharyngeal Respiratory Panel (PCR) - Final 10/31/23 17:23 Nasal Secretion SARS-CoV-2 & FLU Antigen (Rapid) - Final Radiography Diagnostic Testing: Radiology Impression Lumbar Spine CT 11/08/23 11:21 IMPRESSION: Multilevel degenerative changes, as described above. Electronically Signed: Sav Morillo MD at 14:21 EST , Pelvis CT 11/08/23 11:21 IMPRESSION: No hip fractures seen. Sigmoid diverticulosis. Degenerative changes of the lumbar spine. Electronically Signed: Sav Morillo MD at 14:19 EST , Physical Exam Const alert, oriented x3, no apparent distress, average body habitus and healthy appearing General Appearance: cooperative HEENT normocephalic, head/scalp atraumatic, hearing grossly normal bilaterally, moist oral mucous membranes and oropharynx normal Eyes PERRL, EOMs intact bilaterally and conjunctivae normal Neck no lymphadenopathy, supple and no JVD Lymph Lymphatic: no lymphadenopathy noted and no lymphedema noted Resp normal respiratory effort, no retractions and no use of accessory muscles Resp Narrative: Diminished breath sounds bibasilarly. No wheezes. Few crackles. Remains on 4L of oxygen Cardio regular rate, regular rhythm, S1 normal heart sound, S2 normal heart sound and no murmurs GI normal to inspection, nondistended, normoactive bowel sounds, soft to palpation, non-tender and non-distended Extremity normal to inspection, full ROM, normal capillary refill and no clubbing, cyanosis or edema Skin General Skin Exam: no breakdown Neuro oriented x3, CN's II-XII intact bilaterally, moves all extremities, no focal motor deficits and no sensory deficits noted Sensorium / Orientation: awake, alert, oriented to person, oriented to place and oriented to time Speech: speech normal Motor Exam: strength 5/5 throughout and general weakness Psych thought process normal, cooperative and affect normal Appearance: appropriate Assessment & Plan Assessment/Plan (1) Acute bronchitis: QUALIFIERS: Bronchitis organism: unspecified organism Qualified Code(s): J20.9 - Acute bronchitis, unspecified PLAN: Plan # Acute hypoxic respiratory failure * Likely due to severe pulmonary hypertension and acute on chronic heart failure preserved ejection fraction * Chest CT on admission showed interstitial pneumonia with small left pleural effusion with bilateral underlying atelectasis and reticulonodular interstitial thickening with multiple tiny subcentimeter peripheral nodules in the upper lobes. * Being diuresed with IV Lasix. 2D echo showed pulmonary artery systolic pressure of 60 mmHg indicating moderate to severe pulmonary hypertension. He has EF of 70%. * DC diuresis for due to worsening hyponatremia. On IV ceftriaxone 2 g daily and IV Solu-Medrol. * pulmonology on board * lasix IV discontinued due to worsening hyponatremia * #Chronic lower back pain: * says pain is in the right hip and radiates down his leg. * Straight leg raising test was negative. * WIll get ct scan of the lumbar spine and right hip; has a pacemaker incompatible with MRI. * Discussed with Dr. De Los Santos of pain management on phone during this admission. Source of pain is not clear. He did have a steroid shot by his PCP recently but that does not seem to have helped much with the pain. Discussion with Dr. De Los Santos, images ordered as above. * CT of the lumbar spine without contrast showed multi level degenerative changes and pelvic CT showed no hip fractures and degenerative changes of the lumbar spine. * Patient states he has not had any pain for the last 2 days. Will therefore monitor for now and refer to follow-up with pain management on outpatient basis. * #Hyponatremia * sodium idown to 126 yesterday. Likely due to overdiuresis. * BMP pending today. Will give very gentle hydration with IVF if sodium comes back still low today. * #Parkinson's disease: On Sinemet #Paroxysmal A-fib: On sotalol. On Xarelto. #Benign essential hypertension: on lisinopril and spironolactone #Hyperlipidemia: On statin #Hypothyroidism: On Synthroid #History of arrhythmia: S/p pacemaker. Stable. #MGUS: Stable. Follow-up with oncology on outpatient basis. #GERD: On Protonix #BPH: S/p TURP. Stable. #DVT prophylaxis: On Xarelto already. CODE STATUS: DNRCCA no intubation Disposition: Anticipate discharge over the next 24 to 48 hours. Total time spent on evaluation and management of patient, reviewing chart and s pecialist notes, discussing plan with patient and his daughter, discussion with nursing and ancillary staff as well as documentation: 39 mins Charges/Coding Visit Charges Inpatient E&M: 65462 Subs Hosp L2
[2023-11-09 13:23] LABS: Anion Gap 4 (5-15); BUN 14 mg/dL (7-18); BUN/Creat Ratio 17.1 RATIO (10-20); Calcium,Total 8.5 mg/dL (8.5-10.1); Chloride 84 mmol/L (98-107); Creatinine, Serum 0.82 mg/dL (0.70-1.30); EST Glomerular Filtration Rate 95 mL/min (>60); Est Glom Filt Rate - Afr Amer 115 mL/min (>60); Estimated Creatinine Clearance 73.08 ml/min; Glucose 156 mg/dL (74-106); Potassium 3.5 mmol/L (3.5-5.1); Sodium Level 123 mmol/L (136-145)
--- NOTE | 2023-11-09 13:30 | CASEMGMT ---
RN CM in to discuss HHC at discharge. Patient and daughter prefer [facility]. RN CM called and made referral to [facility]. They are able to accept patient after PCP office visit on 11/14/1340, start of care planned for 11/15. RN CM in to updated daughter. Daughter upset that she will not have 24/7 half-way care at home at discharge. RN CM explained HHC LOC, daughter voiced understanding and understands will need possible private care at home. Private duty list provided to daughter. Daughter had no further questions or concerns. CM will continue to follow this patient and plan for a safe discharge.
[2023-11-09] MEDS: Ondansetron 4 MG/2 ML Vial IV (13:45)
--- NOTE | 2023-11-09 14:06 | NURSING ---
gave pt another i.s and encouraged use of that and pickle. also encouraged mild exercise while resting in bed. pt agreeable and reports understanding of importance of ambulating to bathroom. daughter in agrees
[2023-11-09] MEDS: Rivaroxaban 20 MG Tablet PO (17:33)
[2023-11-09] MEDS: MELATONIN 3 MG TABLET PO (20:47)
[2023-11-09] MEDS: Mirtazapine 15 MG Tablet PO (20:47)
[2023-11-09] MEDS: Lisinopril 40 MG Tablet PO (20:47)
[2023-11-09] MEDS: Latanoprost 0.005% 1 Bottle 1 DRP OPHTHALMIC (20:49)
[2023-11-10] VITALS (9 sets, daily range): BP systolic 126–158; BP diastolic 69–81; PULSE 73–82; RESP 16–22; TEMP 36.4–36.6; O2SAT 92–94; BMI 29.4
[2023-11-10] MEDS: Levothyroxine 88 MCG Tablet PO (05:10)
[2023-11-10] MEDS: Ipratropium/Albuterol Sulfate 3 ML AMPUL.NEB INHALATION ×3 (07:47→20:04)
[2023-11-10] MEDS: 0.9% Saline Lock 10 ML Syringe IV ×2 (08:26→12:45)
[2023-11-10] MEDS: 0.9% Normal Saline (1000mL) 1,000 ML 75 ML IV (08:26)
[2023-11-10 09:22] LABS: Anion Gap 5 (5-15); BUN 15 mg/dL (7-18); BUN/Creat Ratio 18.6 RATIO (10-20); Calcium,Total 8.9 mg/dL (8.5-10.1); Chloride 81 mmol/L (98-107); Creatinine, Serum 0.81 mg/dL (0.70-1.30); EST Glomerular Filtration Rate 96 mL/min (>60); Est Glom Filt Rate - Afr Amer 117 mL/min (>60); Estimated Creatinine Clearance 73.98 ml/min; Glucose 159 mg/dL (74-106); Potassium 3.8 mmol/L (3.5-5.1); Sodium Level 121 mmol/L (136-145)
[2023-11-10] MEDS: Sotalol Hydrochloride 80 MG Tablet PO ×2 (09:50→17:06)
[2023-11-10] MEDS: Carbidopa/Levodopa 25/100 Tablet PO ×2 (09:50→17:05)
[2023-11-10] MEDS: Pantoprazole Sodium 40 MG Tablet PO ×2 (09:50→17:06)
[2023-11-10] MEDS: Spironolactone 50 MG Tablet PO (09:53)
[2023-11-10] MEDS: Polyethylene Glycol 3350 17 GM PACKET PO (09:54)
--- NOTE | 2023-11-10 10:11 | CON.PCM.RE_ITS ---
Assessment & Plan Assessment/Plan (1) Hyponatremia: (2) Acute respiratory insufficiency: PLAN: Plan This is a pleasant 87-year-old male with past medical history significant for hypertension, hyperlipidemia, hypothyroidism, A-fib, coronary artery disease status postcardiac stent, history of monoclonal gammopathy of unknown known significance, Parkinson's disease, BPH status post TURP who presented to the em ergency room on October 31 with complaints of shortness of breath, admitted for acute hypoxic respiratory failure which was multifactorial secondary to pneumonia, pulmonary edema, severe pulmonary hypertension. Echo showed EF 70%, severe pulmonary hypertension. Nephrology consulted for hyponatremia. Patient has normal baseline sodium trends and sodium was normal on admission. During hospitalization sodium has slowly been dropping and today his sodium is at 121. During hospitalization patient has been diuresed with IV Lasix which was discontinued due to worsening hyponatremia. He is also on Aldactone but this has been on hold for the past few days. Today volume status seems near euvole celeste, volume status appears to be compensated. No overt hypervolemia. Will continue to hold off on diuretics for today. Patient has been nauseated during hospitalization, has very poor oral/solute intake. His serum Osmo 266, urine Osmo 625, urine sodium less than 5. Today we will give a dose of tolvaptan 15 mg and continue with gentle IV fluids which have been ordered. Also discussed with patient and his daughter encouraged patient to increase solute intake. Patient does not have any worrisome symptoms of hyponatremia at this time. He is on Remeron which was started yesterday due to poor appetite, no need to discontinue that. Further orders forthcoming as hospitalization evolves, thank you for allowing us to participate in the care of Mr. Ding. HPI Consult Data Date of Consult: 11/10/23 HPI Narrative HPI Narrative: TONI DING, is a 87 M with past medical history significant for hypertension, hyperlipidemia, hypothyroidism, A-fib, coronary artery disease status postcardiac stent, history of monoclonal gammopathy of unknown known significance, Parkinson's disease, BPH status post TURP who presented to the emergency room on October 31 with complaints of shortness of breath. Workup in the emergency room included CT of chest which showed right lower lobe pneumonia complicated by acute hypoxic respiratory failure. Patient was admitted for further evaluation and treatment. Nephrology consulted for hyponatremia. Elpidio nt has normal baseline sodium levels. Sodium was normal on admission at 136, since November 03 sodium has been slowly dropping and today his sodium is at 121. Patient denies any vomiting or diarrhea but does complain of nausea daily. His daughter is at bedside. Per patient and daughter appetite has been very poor as patient has a decreased taste and does not like hospital food. Daughter reports she brought in food from home today. [facility] Medical History Atherosclerosis of coronary artery of [place] heart without angina pectoris Depression Essential hypertension Gastric ulcer Glaucoma Hyperlipidemia Hypothyroidism Insomnia MGUS (monoclonal gammopathy of unknown significance) Parkinson's disease Paroxysmal atrial fibrillation Polyneuropathy Vitamin D deficiency Home Medications brimonidine 0.15 % eye drops 1 drp ophthalmic (eye) TID 03/07/23 [History Last Taken 10/31/23] carbidopa 25 mg-levodopa 100 mg tablet (Sinemet) 1 tab PO TID 03/07/23 [History Last Taken 10/31/23] latanoprost 0.005 % eye drops 1 drp ophthalmic (eye) DAILY 03/07/23 [History Last Taken 10/30/23] mirtazapine 7.5 mg tablet 15 mg PO QHS 03/07/23 [History Last Taken 10/30/23] pantoprazole 40 mg tablet,delayed release 40 mg PO BID 03/07/23 [History Last Taken 10/31/23] levothyroxine 88 mcg tablet 88 mcg PO DAILY 04/05/23 [History Last Taken 10/31/23] sotalol 80 mg tablet 80 mg PO BID #180 tabs 06/07/23 [Rx Last Taken 10/31/23] rivaroxaban 20 mg tablet (Xarelto) 20 mg PO QPM #30 tabs 06/14/23 [Rx Last Taken 10/30/23] fluoxetine 10 mg tablet 10 mg PO DAILY 10/31/23 [History Last Taken 10/31/23] lisinopril 20 mg tablet 40 mg PO QHS 10/31/23 [History Last Taken 10/30/23] polyethylene glycol 3350 17 gram/dose oral powder (Miralax) 17 g PO DAILY 1 01/02/23 [History Last Taken Unknown] Allergy/AdvReac Type Severity Reaction Status Date / Time No Known Allergies Allergy Verified 10/31/23 15:58 Family History Mother Cervical cancer Brother , 50 Aortic dissection Surgical History History of bilateral cataract extraction History of coronary artery stent placement (~2008) History of hernia repair History of transurethral resection of prostate Presence of permanent cardiac pacemaker (03/31/16) Skin cancer Social History Smoking Status: Former smoker how long ago did patient quit smokin years ago alcohol intake: never substance use type: does not use caffeine: No ROS ROS Narrative As in past medical history and HPI Physical Exam Narrative Alert and orient x 3, no apparent distress S1, S2, RRR Lung sounds clear anteriorly, no rales rhonchi or wheezing noted Abdomen soft, nontender No pitting edema Lab / Micro Data 11/07/23 06:45 11/10/23 08:49 Labs: Laboratory Results - last 24 hr 11/09/23 09:05: Sodium 123 L, Potassium 3.5, Chloride 84 L, Carbon Dioxide 35.0 H, Anion Gap 4 L, BUN 14, Creatinine 0.82, Estim Creat Clear Calc 73.08, Est GFR (MDRD) Af Amer 115, Est GFR (MDRD) Non-Af 95, BUN/Creatinine Ratio 17.1, Glucose 156 H, Calcium 8.5 11/09/23 11:27: Urine Osmolality 625, Ur Random Sodium < 5 11/10/23 08:49: Sodium 121 L, Potassium 3.8, Chloride 81 L, Carbon Dioxide 35.0 H, Anion Gap 5, BUN 15, Creatinine 0.81, Estim Creat Clear Calc 73.98, Est GFR (MDRD) Af Amer 117, Est GFR (MDRD) Non-Af 96, BUN/Creatinine Ratio 18.6, Glucose 159 H, Calcium 8.9
[2023-11-10] MEDS: Ondansetron 4 MG/2 ML Vial IV (11:10)
[2023-11-10] MEDS: Ceftriaxone 2 GM in 0.9% Normal Saline (50mL MB+) 50 ML IV (11:12)
--- NOTE | 2023-11-10 12:04 | PN_ITS ---
Subjective Subjective Patient seen and examined. Daughter was by his bedside. He had no active complaints. He just wanted to go home. Review of systems otherwise negative. His sodium has dropped below and is 121 today. Patient counseled that he cannot be discharged home in light of his low sodium. Review of systems otherwise nega tive. Objective Data Objective Data Vital Signs: Vital Signs Temp Pulse Resp BP Pulse Ox O2 Del Method O2 Flow Rate 97.5 F L 73 18 126/69 H 94 Nasal Cannula 4 11/10/23 09:30 11/10/23 09:30 11/10/23 09:30 11/10/23 09:30 11/10/23 09:30 11/10/23 09:30 11/10/23 09:52 FiO2 90 11/09/23 14:00 Oxygen Flow Rate (L/min) [ 6 AMBULATING with Oxygen #3] Oxygen Flow Rate (L/min) [ 4 AMBULATING with Oxygen #2] Oxygen Flow Rate (L/min) [ 2 AMBULATING with Oxygen #1] Oxygen Flow Rate (L/min) [ 0 AMBULATING on Room Air] Oxygen Flow Rate (L/min) [At 0 REST on Room Air] Oxygen Flow Rate (L/min) 4 Oxygen Delivery Method Nasal Cannula Weight: 223 lb 1.725 oz Body Mass Index (BMI) 29.4 Intake & Output: Intake and Output for Last 24 Hours 11/08/23 11/09/23 11/10/23 23:59 23:59 23:59 Intake Total 520 / 1000 650 / 650 Output Total 700 / 1200 1450 / 1450 250 / 250 Balance -180 / -200 -800 / -800 -250 / -250 Lab / Micro Data 11/07/23 06:45 11/10/23 08:49 Labs: Laboratory Results - last 24 hr 11/09/23 09:05: Sodium 123 L, Potassium 3.5, Chloride 84 L, Carbon Dioxide 35.0 H, Anion Gap 4 L, BUN 14, Creatinine 0.82, Estim Creat Clear Calc 73.08, Est GFR (MDRD) Af Amer 115, Est GFR (MDRD) Non-Af 95, BUN/Creatinine Ratio 17.1, Glucose 156 H, Calcium 8.5 11/10/23 08:49: Sodium 121 L, Potassium 3.8, Chloride 81 L, Carbon Dioxide 35.0 H, Anion Gap 5, BUN 15, Creatinine 0.81, Estim Creat Clear Calc 73.98, Est GFR (MDRD) Af Amer 117, Est GFR (MDRD) Non-Af 96, BUN/Creatinine Ratio 18.6, Glucose 159 H, Calcium 8.9 Micro: Microbiology 11/04/23 12:45 Stool Enteric Bacteriology - Final 11/01/23 22:07 Urine, Clean Catch Chlamydia trachomatis (PCR) - Final 11/01/23 11:55 Urine, Clean Catch Legionella Antigen - Final 11/01/23 11:55 Urine, Clean Catch Streptococcus pneumoniae Antigen (M - Final 10/31/23 19:24 Mucosa - Nasopharyngeal Respiratory Panel (PCR) - Final 10/31/23 17:23 Nasal Secretion SARS-CoV-2 & FLU Antigen (Rapid) - Final Physical Exam Const alert, oriented x3, no apparent distress, average body habitus and healthy appearing General Appearance: cooperative HEENT normocephalic, head/scalp atraumatic, hearing grossly normal bilaterally, moist oral mucous membranes and oropharynx normal Eyes PERRL, EOMs intact bilaterally and conjunctivae normal Neck no lymphadenopathy, supple and no JVD Lymph Lymphatic: no lymphadenopathy noted and no lymphedema noted Resp normal respiratory effort, no retractions and no use of accessory muscles Resp Narrative: Diminished breath sounds bibasilarly. No wheezes. Few crackles. Still Remains on 4L of oxygen Cardio regular rate, regular rhythm, S1 normal heart sound, S2 normal heart sound and no murmurs GI normal to inspection, nondistended, normoactive bowel sounds, soft to palpation, non-tender and non-distended Extremity normal to inspection, full ROM, normal capillary refill and no clubbing, cyanosis or edema Skin General Skin Exam: no breakdown Neuro oriented x3, CN's II-XII intact bilaterally, moves all extremities, no focal motor deficits and no sensory deficits noted Sensorium / Orientation: awake, alert, oriented to person, oriented to place and oriented to time Speech: speech normal Motor Exam: strength 5/5 throughout and general weakness Psych thought process normal, cooperative and affect normal Appearance: appropriate Assessment & Plan Assessment/Plan (1) Acute bronchitis: QUALIFIERS: Bronchitis organism: unspecified organism Qualified Code(s): J20.9 - Acute bronchitis, unspecified PLAN: Plan # Acute hypoxic respiratory failure * Likely due to severe pulmonary hypertension and acute on chronic heart failure preserved ejection fraction * Chest CT on admission showed interstitial pneumonia with small left pleural effusion with bilateral underlying atelectasis and reticulonodular interstitial thickening with multiple tiny subcentimeter peripheral nodules in the upper lobes. * 2D echo showed pulmonary artery systolic pressure of 60 mmHg indicating moderate to severe pulmonary hypertension. He has EF of 70%. * DC diuresis for due to worsening hyponatremia. On IV ceftriaxone 2 g daily and IV Solu-Medrol. * pulmonology on board * lasix IV discontinued due to worsening hyponatremia * #Chronic lower back pain: * says pain is in the right hip and radiates down his leg. * Straight leg raising test was negative. * WIll get ct scan of the lumbar spine and right hip; has a pacemaker incompatible with MRI. * Discussed with Dr. De Los Santos of pain management on phone during this admission. Source of pain is not clear. He did have a steroid shot by his PCP recently but that does not seem to have helped much with the pain. Discussion with Dr. De Los Santos, images ordered as above. * CT of the lumbar spine without contrast showed multi level degenerative changes and pelvic CT showed no hip fractures and degenerative changes of the lumbar spine. * Patient states he has not had any pain for the last 2 days. Will therefore monitor for now and refer to follow-up with pain management on outpatient basis. * # Hypotonic hypovolemic hyponatremia * sodium now down to 121. * started on gentle hydration with IVF NS as I think it is likely due to o verdiuresis. Nephrology consulted. Chloride is also low and urine osmolality is high. urine sodium is low. Serum osmolality is also low. * BMP pending today. Will give very gentle hydration with IVF if sodium comes back still low today. * #Parkinson's disease: On Sinemet #Paroxysmal A-fib: On sotalol. On Xarelto. #Benign essential hypertension: on lisinopril and spironolactone #Hyperlipidemia: On statin #Hypothyroidism: On Synthroid #History of arrhythmia: S/p pacemaker. Stable. #MGUS: Stable. Follow-up with oncology on outpatient basis. #GERD: On Protonix #BPH: S/p TURP. Stable. #DVT prophylaxis: On Xarelto already. CODE STATUS: DNRCCA no intubation Disposition: DC home once hyponatremia has resolved. Total time spent on evaluation and management of patient, reviewing chart and specialist notes, discussing plan with patient and his daughter, discussion with nursing and ancillary staff as well as documentation: 37 mins Charges/Coding Visit Charges Inpatient E&M: 56722 Subs Hosp L2
[2023-11-10] MEDS: proCHLORPERazine 10 MG/2 ML Vial 5 MG IV (12:44)
[2023-11-10] MEDS: BRIMONIDINE 0.15% 5 ML Bottle 1 DRP OPHTHALMIC (12:50)
[2023-11-10] MEDS: TOLVAPTAN 15 MG TABLET PO (13:32)
--- NOTE | 2023-11-10 15:47 | CASEMGMT ---
Patient has a Healthcare Power of Extrusion Die Template Maker and a Healthcare Living Will. Patient is aware documents are not on file at [facility] and to bring in copies. Mariah MATTHEWS
[2023-11-10] MEDS: Rivaroxaban 20 MG Tablet PO (17:04)
[2023-11-10] MEDS: MELATONIN 3 MG TABLET PO (21:09)
[2023-11-10] MEDS: Mirtazapine 15 MG Tablet PO (21:09)
[2023-11-10] MEDS: Lisinopril 40 MG Tablet PO (21:09)
[2023-11-10] MEDS: Latanoprost 0.005% 1 Bottle 1 DRP OPHTHALMIC (21:10)
[2023-11-11] VITALS (8 sets, daily range): BP systolic 120–136; BP diastolic 56–66; PULSE 71–79; RESP 16–20; TEMP 36.4–36.6; O2SAT 2–97; BMI 29.3
[2023-11-11] MEDS: Levothyroxine 88 MCG Tablet PO (05:39)
[2023-11-11] MEDS: Ipratropium/Albuterol Sulfate 3 ML AMPUL.NEB INHALATION ×2 (07:14→12:28)
[2023-11-11] MEDS: Spironolactone 50 MG Tablet PO (09:14)
[2023-11-11] MEDS: Pantoprazole Sodium 40 MG Tablet PO (09:14)
[2023-11-11] MEDS: Sotalol Hydrochloride 80 MG Tablet PO (09:15)
[2023-11-11] MEDS: Carbidopa/Levodopa 25/100 Tablet PO ×2 (09:19→11:56)
[2023-11-11] MEDS: Ceftriaxone 2 GM in 0.9% Normal Saline (50mL MB+) 50 ML IV (09:21)
[2023-11-11] MEDS: 0.9% Saline Lock 10 ML Syringe IV (09:21)
[2023-11-11] MEDS: BRIMONIDINE 0.15% 5 ML Bottle 1 DRP OPHTHALMIC (09:22)
[2023-11-11] MEDS: Polyethylene Glycol 3350 17 GM PACKET PO (09:22)
[2023-11-11 09:23] LABS: Anion Gap 4 (5-15); BUN 14 mg/dL (7-18); BUN/Creat Ratio 15.7 RATIO (10-20); Chloride 88 mmol/L (98-107); Creatinine, Serum 0.89 mg/dL (0.70-1.30); EST Glomerular Filtration Rate 86 mL/min (>60); Est Glom Filt Rate - Afr Amer 104 mL/min (>60); Estimated Creatinine Clearance 67.33 ml/min; Glucose 126 mg/dL (74-106); Potassium 3.8 mmol/L (3.5-5.1); Sodium Level 126 mmol/L (136-145)
[2023-11-11] MEDS: guaiFENesin/D-Methorphan TAB.SR.12H 2 TABLET PO (09:30)
--- NOTE | 2023-11-11 11:44 | NURSING ---
I spoke with Dori with [facility] to inform her pt will be d/c today. I also faxed over the d/c instructions.
--- NOTE | 2023-11-11 12:18 | DS.PCM_ITS ---
Providers Date of Admission: 11/01/23 Date of Discharge: 11/11/23 Primary Care Physician: Dr. William Cespedes MD Consultations 11/01/23 09:28 Consult: Pain Management Routine Consulting Provider: Lamin Espino Reason for Consult: Right hip pain EMERGENT Consult: No Notified: Yes Date Notified: 11/01/23 Time Notified: 09:28 Method of Notification: Verbal 11/06/23 09:51 Consult: Adult Education Manager / Pulmonary Medicine Routine Consulting Provider: [facility] Reason for Consult: acute hypoxic respiratory failure EMERGENT Consult: No Notified: Yes Date Notified: 11/06/23 Time Notified: 09:51 Method of Notification: Text 11/10/23 08:10 Consult: Nephrology Routine Consulting Provider: Anabela Wlash Reason for Consult: hyponatremia EMERGENT Consult: No Notified: Yes Date Notified: 11/10/23 Time Notified: 08:10 Method of Notification: Text Reason For Visit: ACUTE BRONCHITIS & SEVERE NAUSEA WITH MALAISE Diagnosis Discharge Diagnosis (1) Acute bronchitis: Status: Acute Code(s): J20.9 - Acute bronchitis, unspecified Qualifiers: Bronchitis organism: unspecified organism Qualified Code(s): J20.9 - Acute bronchitis, unspecified Plan # Acute hypoxic respiratory failure * Likely due to severe pulmonary hypertension and acute on chronic heart failure preserved ejection fraction * Chest CT on admission showed interstitial pneumonia with small left pleural effusion with bilateral underlying atelectasis and reticulonodular interstitial thickening with multiple tiny subcentimeter peripheral nodules in the upper lobes. * 2D echo showed pulmonary artery systolic pressure of 60 mmHg indicating mod erate to severe pulmonary hypertension. He has EF of 70%. * DC diuresis for due to worsening hyponatremia. On IV ceftriaxone 2 g daily and IV Solu-Medrol. * pulmonology on board * lasix IV discontinued due to worsening hyponatremia * #Chronic lower back pain: * says pain is in the right hip and radiates down his leg. * Straight leg raising test was negative. * WIll get ct scan of the lumbar spine and right hip; has a pacemaker incompatible with MRI. * Discussed with Dr. De Los Santos of pain management on phone during this admission. Source of pain is not clear. He did have a steroid shot by his PCP recently but that does not seem to have helped much with the pain. Discussion with Dr. De Los Santos, images ordered as above. * CT of the lumbar spine without contrast showed multi level degenerative changes and pelvic CT showed no hip fractures and degenerative changes of the lumbar spine. * Patient states he has not had any pain for the last 2 days. Will therefore monitor for now and refer to follow-up with pain management on outpatient basis. * # Hypotonic hypovolemic hyponatremia * sodium now down to 121. * started on gentle hydration with IVF NS as I think it is likely due to overdiuresis. Nephrology consulted. Chloride is also low and urine osmolality is high. urine sodium is low. Serum osmolality is also low. * BMP pending today. Will give very gentle hydration with IVF if sodium comes back still low today. * #Parkinson's disease: On Sinemet #Paroxysmal A-fib: On sotalol. On Xarelto. #Benign essential hypertension: on lisinopril and spironolactone #Hyperlipidemia: On statin #Hypothyroidism: On Synthroid #History of arrhythmia: S/p pacemaker. Stable. #MGUS: Stable. Follow-up with oncology on outpatient basis. #GERD: On Protonix #BPH: S/p TURP. Stable. #DVT prophylaxis: On Xarelto already. CODE STATUS: DNRCCA no intubation Disposition: DC home once hyponatremia has resolved. Total time spent on evaluation and management of patient, reviewing chart and s pecialist notes, discussing plan with patient and his daughter, discussion with nursing and ancillary staff as well as documentation: 37 mins Medications at Discharge Home Medications brimonidine 0.15 % eye drops 1 drp ophthalmic (eye) TID 03/07/23 carbidopa 25 mg-levodopa 100 mg tablet (Sinemet) 1 tab PO TID 03/07/23 latanoprost 0.005 % eye drops 1 drp ophthalmic (eye) DAILY 03/07/23 mirtazapine 7.5 mg tablet 15 mg PO QHS 03/07/23 pantoprazole 40 mg tablet,delayed release 40 mg PO BID 03/07/23 levothyroxine 88 mcg tablet 88 mcg PO DAILY 04/05/23 sotalol 80 mg tablet 80 mg PO BID #180 tabs 06/07/23 rivaroxaban 20 mg tablet (Xarelto) 20 mg PO QPM #30 tabs 06/14/23 fluoxetine 10 mg tablet 10 mg PO DAILY 10/31/23 lisinopril 20 mg tablet 40 mg PO QHS 10/31/23 polyethylene glycol 3350 17 gram/dose oral powder (Miralax) 17 g PO DAILY 11/01/23 furosemide 40 mg tablet 40 mg PO DAILY #30 tabs 11/11/23 ondansetron 4 mg disintegrating tablet 4 mg PO Q6H PRN nausea and vomiting #14 tabs 11/11/23 Hospital Course Operations None Procedures 2-D Echocardiogram Summary of Care Provided Minutes Spent on Discharge: 40 Hospital Course: Patient is an 87-year-old male with an extensive past medical history as outlined was admitted through the ED on 10/31/2023 with a complaint of shortness of breath which had began about 2 to 3 days prior to admission. He had associated nausea and decreased oral intake. He has started to have a cough with generalized malaise and weakness. He however denied any fever or chills, myalgias, nausea or vomiting. He had chronic bilateral lower extremity pain. Chest CT on admission showed early right lower lobe pneumonia with clinical evidence of bronchitis. He was also hypoxic. He was admitted and managed for hypoxia due to right lower lobe pneumonia as well as acute bronchitis. He was started on IV doxycycline and breathing treatments with bronchodilators. He was placed on Zofran for the severe nausea. Patient's hospital course was protracted and complicated by increasing respiratory requirements. He was th erefore also managed for acute hypoxic respiratory failure. Pulmonology was consulted in light of his increasing oxygen requirements. He was diuresed with IV Lasix due to fluid overload. His shortness of breath gradually improved. He did have persistent nausea and required Compazine as well as Phenergan. There was also concern for acute on chronic heart failure preserved ejection fraction. He had 2D echo which showed pulmonary artery systolic pressure of 60 mmHg indicating moderate to severe pulmonary hypertension he had EF of 70%. Hospital course was also complicated by worsening hyponatremia with sodium going as low as 121. Was thought to be due to overdiuresis. Lasix was therefore held and he was gently hydrated with IV fluids. Nephrology was consulted and he was given a dose of tolvaptan. At time of discharge sodium was up to 126 and nephrology was was okay with patient being discharged on p.o. Lasix 40 mg daily. Patient had been having right lower extremity pain which radiated to his leg. He said the pain was mainly in his head. This was discussed with pain management who did not think that the source of the pain was clear. Patient had had a steroid shot by his PCP on outpatient basis but it had not helped much with the pain. He had CT of the lumbar spine ordered which showed multi level degenerative changes. Pelvic CT showed no hip fractures. Plan was for patient to follow-up with pain management. Patient remained stable and was discharged home on 2 L of oxygen on 11/11/2023. He is to follow-up with his primary care doctor and pulmonology within 1 to 2 weeks. He is also to follow-up with pain management. Patient seen and examined prior to discharge. He felt well and had no complaints. He was eager to be discharged home. Review of symptoms otherwise negative. Labs and vitals reviewed. Medication reviewed and reconciled. Physical Exam Const alert, oriented x3, no apparent distress, average body habitus and healthy appearing General Appearance: cooperative and comfortable Orientation / Consciousness: awake Exam Limitations: no limitations HEENT normocephalic, head/scalp atraumatic, hearing grossly normal bilaterally, moist oral mucous membranes and oropharynx normal Mouth: oral and palatal mucosa normal Eyes PERRL, EOMs intact bilaterally and conjunctivae normal Neck no lymphadenopathy, supple and no JVD Lymph Lymphatic: no lymphadenopathy noted and no lymphedema noted Resp normal respiratory effort, no retractions and no use of accessory muscles Resp Narrative: Diminished breath sounds bibasilarly. No wheezes. Few crackles. On 2L of oxygen Cardio regular rate, regular rhythm, S1 normal heart sound, S2 normal heart sound and no murmurs GI normal to inspection, nondistended, normoactive bowel sounds, soft to palpation, non-tender and non-distended Extremity normal to inspection, full ROM, normal capillary refill and no clubbing, cyanosis or edema Skin no rashes or lesions noted General Skin Exam: no breakdown Neuro oriented x3, CN's II-XII intact bilaterally, moves all extremities, no focal motor deficits and no sensory deficits noted Sensorium / Orientation: awake, alert, oriented to person, oriented to place and oriented to time Speech: speech normal Motor Exam: strength 5/5 throughout and general weakness Psych thought process normal, cooperative and affect normal Appearance: appropriate Weight / BMI Weight Weight: 222 lb 7.143 oz Body Mass Index (BMI) 29.3 ABG / Lab / Microbiology Data 11/07/23 06:45 11/11/23 08:51 Laboratory: Laboratory Results - last 24 hr 11/11/23 08:51: Sodium 126 L, Potassium 3.8, Chloride 88 L, Carbon Dioxide 34.0 H, Anion Gap 4 L, BUN 14, Creatinine 0.89, Estim Creat Clear Calc 67.33, Est GFR (MDRD) Af Amer 104, Est GFR (MDRD) Non-Af 86, BUN/Creatinine Ratio 15.7, Glucose 126 H, Calcium 9.0 Microbiology: Microbiology 11/04/23 12:45 Stool Enteric Bacteriology - Final 11/01/23 22:07 Urine, Clean Catch Chlamydia trachomatis (PCR) - Final 11/01/23 11:55 Urine, Clean Catch Legionella Antigen - Final 11/01/23 11:55 Urine, Clean Catch Streptococcus pneumoniae Antigen (M - Final 10/31/23 19:24 Mucosa - Nasopharyngeal Respiratory Panel (PCR) - Final 10/31/23 17:23 Nasal Secretion SARS-CoV-2 & FLU Antigen (Rapid) - Final D/C Instructions Discharge Diet: Low fat / Low cholesterol and - (fluid restriction to 1500cc da corina) Discharge Activity: Return to Normal Activity Weight Bearing Status: Weight bearing as tolerated Call your doctor if you observe: Fever of 101 or Higher, Shortness of breath and Chest pain Meaningful Use Info Meaningful Use Diagnoses (Choose all that apply): CHF CHF AKOSUA/ARB ordered at discharge?: No Reason AKOSUA/ARB not ordered?: Not indicated Documented LVEF (%): 70 Discharge Plan Admission Admit Date/Time: 11/01/23 15:54 Primary Reason for Your Visit: acute on chronic HF Attending Provider: Viviana Scales Primary Care Provider: William Cespedes Chi Consulting Providers: Derick Montoya; Lamin Espino; Nii Siegel; Anabela Walsh Instructions Patient Instructions: Coping with Heart Failure Additional Instructions / Restrictions: Follow-up with Dr. Walsh within 1 week for repeat BMP to be done to evaluate sodium. Discharge Orders/Prescriptions Prescriptions: New furosemide 40 mg tablet 40 mg PO DAILY Qty: 30 1RF ondansetron 4 mg tablet,disintegrating 4 mg PO Q6H PRN (Reason: nausea and vomiting) Qty: 14 0RF Continued brimonidine 0.15 % drops 1 drp ophthalmic (eye) TID Rx Instructions: administer approximately 8 hours apart latanoprost 0.005 % drops 1 drp ophthalmic (eye) DAILY carbidopa-levodopa [Sinemet] 25-100 mg tablet 1 tab PO TID mirtazapine 7.5 mg tablet 15 mg PO QHS pantoprazole 40 mg tablet,delayed release (DR/EC) 40 mg PO BID levothyroxine 88 mcg tablet 88 mcg PO DAILY Patient Comments: take 1 tablet by mouth once daily fluoxetine 10 mg tablet 10 mg PO DAILY Patient Comments: take 1 tablet by mouth every morning lisinopril 20 mg tablet 40 mg PO QHS polyethylene glycol 3350 [Miralax] 17 gram/dose powder 17 g PO DAILY sotalol 80 mg tablet 80 mg PO BID Qty: 180 3RF Xarelto 20 mg tablet 20 mg PO QPM Qty: 30 11RF Rx Instructions: must administer with evening meal Referrals / Follow Up: Juan Ceron MD [Med Staff - Active Staff] - Within 1 Month (see to establish care for heart failure) Anabela Walsh MD [Med Staff - Consulting] - Within 1 Week William Cespedes Chi, MD [Primary Care Provider] - 11/14/23 1:40 pm Disposition Disposition (needs filled in before D/C Order can be placed): Home, Self Care Charges/Coding Visit Charges Inpatient E&M: 66890 Disch Hosp >30min
--- NOTE | 2023-11-11 13:49 | NURSING ---
[employer] notified of need for home oxygen [place] up. [place] [facility] [place]
--- NOTE | 2023-11-11 14:16 | CASEMGMT ---
YESENIA CM: Pt's daughter at pt's bedside and requested to speak with CM. This RN CM met with pt and daughter at bedside. Reviewed plan for pt to see Dr. Cespedes on 11/[address] [facility] to start care on 11/15. Pt's daughter expressed understanding. Discussed additional assistance with private duty [employer]OTECTION [employer]INE[employer] and pt's daughter confirmed she has the provided list. Reiterated the frequency of skilled visits. Pt's daughter expressed understanding. Pt's daughter with questions re: home O2 set up. Process explained with tank provided from the hospital and to call the [phone] number on the tank upon arrival home to have concentrator delivered. Pt's daughter expressed understanding. Pt's daughter requested a wheeled walker as the one she borrowed at home does not have wheels. Dr. Scales notifed via backline and script facilitated. [place] contacting correctional supervisor lieutenant to retrieve from [employer]. Omi Mcintyre RN CM
== END 2023-11-11 15:55 | disposition home or self-care (01) | DRG 196 ==
LOC: ED 19:14 → PCU 19:40
PROVIDERS: Internal Medicine; Internal Medicine Critical Care Medicine; Admitting Provider Internal Medicine; Emergency Provider Student in an Organized Health Care Education/Training Program; PCP Family Medicine Geriatric Medicine; Visit Provider Student in an Organized Health Care Education/Training Program
DX: J84.9 Interstitial pulmonary disease, unspecified (principal); J96.01 Acute respiratory failure with hypoxia; I50.33 Acute on chronic diastolic (congestive) heart failure; E87.1 Hypo-osmolality and hyponatremia; K21.9 Gastro-esophageal reflux disease without esophagitis; D47.2 Monoclonal gammopathy; I27.20 Pulmonary hypertension, unspecified; I11.0 Hypertensive heart disease with heart failure; I48.0 Paroxysmal atrial fibrillation; E03.9 Hypothyroidism, unspecified; J20.9 Acute bronchitis, unspecified; E78.5 Hyperlipidemia, unspecified; I25.10 Atherosclerotic heart disease of native coronary artery without angina pectoris; M25.551 Pain in right hip; M54.41 Lumbago with sciatica, right side; M54.42 Lumbago with sciatica, left side; E87.6 Hypokalemia; R11.0 Nausea; M25.561 Pain in right knee; M25.552 Pain in left hip; G20.A1 Parkinson's disease without dyskinesia, without mention of fluctuations; G89.29 Other chronic pain; Z79.01 Long term (current) use of anticoagulants; Z11.52 Encounter for screening for COVID-19; Z95.0 Presence of cardiac pacemaker; Z95.5 Presence of coronary angioplasty implant and graft; Z87.891 Personal history of nicotine dependence
CPT/HCPCS: 36415; 71045; 71046; 71250; 72131; 72192; 80048; 80053; 80061; 82962; 83690; 83735; 83880; 83930; 83935; 84100; 84145; 84300; 84443; 84484; 85025; 86618; 87428; 87449; 87491; 87506; 87633; 87641; 93005; 93306; 94002; 94003; 94640; 94667; 94668; 94762; 97110; 97116; 97162; 97166; 97530; 97535; 99285; J7030; J7040; Q9957; A4216; C8929; J0696; J1940; J2405